=== PATIENT | female | born 1980 | race Caucasian/White ===

== ENCOUNTER 2020-10-28 13:34 | Outpatient (REF) | payer OTHER, SELFPAY | END 2020-10-28 13:35 | disposition home or self-care (01) | LOC: HO.LAB 13:34 | PROVIDERS: Visit Provider Nurse Practitioner Family | DX: R10.9 Unspecified abdominal pain (principal); R82.90 Unspecified abnormal findings in urine | CPT/HCPCS: 87086 ==

== ENCOUNTER 2021-04-22 09:58 | Outpatient (REF) | payer OTHER, SELFPAY ==
--- NOTE | ~2021-04-22 | XR_ITS ---
EXAMINATION: RIGHT HAND X-RAY CLINICAL INFORMATION: Pain COMPARISON: None TECHNIQUE: 3 views right hand FINDINGS: Bone alignment is normal. No fracture or dislocation is seen. Joint spaces and soft tissues are normal. XR/XR hand wrist RT IMPRESSION: Normal exam.
== END 2021-04-22 09:59 | disposition home or self-care (01) ==
LOC: HO.HMGCX 09:58
PROVIDERS: PCP Nurse Practitioner Family; Visit Provider Nurse Practitioner Family
DX: M79.641 Pain in right hand (principal)
CPT/HCPCS: 73110; 73130

== ENCOUNTER 2021-08-09 08:50 | Outpatient (REF) | payer OTHER, SELFPAY ==
[2021-08-09 11:28] LABS: MANUAL DIFF FLAG NO
[2021-08-09 11:34] LABS: Appearance Urine CLEAR; Color Urine YELLOW; Glucose Urine UA NEG (NEG); Leukocyte Esterase Urine NEG (NEG); Nitrite Urine NEG (NEG); Specific Gravity - Urine <= 1.005 (1.005-1.025); Urine Blood NEG (NEG); Urine Ketones NEG (NEG); Urine Protein NEG (NEG-TRACE)
[2021-08-09 11:36] LABS: Basophils Percent Auto 0.3 % (0-2); Eosinophils Absolute Auto 0.2 X10*3/uL (0.0-0.4); Eosinophils Percent Auto 3.8 % (0-4); Hemoglobin 13.1 g/dl (12.0-16.0); Imm Gran Abs Auto 0.01 X10*3/uL (0.00-0.03); Imm Gran Pct Auto 0.2 % (0.0-0.4); Lymphocytes Absolute Auto 1.8 X10*3/uL (1.2-4.9); Lymphocytes Percent Auto 30.1 % (20-40); Mean Corpuscular Volume 90.9 fL (80.0-98.0); Mean Platelet Volume 10.9 fL (9.4-12.3); Monocytes Absolute Auto 0.4 X10*3/uL (0.1-1.2); Neutrophils Absolute Auto 3.6 x10*3/uL (2.0-8.3); Neutrophils Percent Auto 58.6 % (45-73); Platelet Count 376 X10*3/uL (160-400); Red Blood Count 4.51 X10*6/uL (4.20-5.50); Red Cell Distribution Width 13.8 % (11.0-16.0); White Blood Count 6.1 X10*3/uL (4.8-10.8)
[2021-08-09 12:06] LABS: Alanine Aminotransferase 15 U/L (0-31); Albumin Level 4.3 g/dL (3.5-5.0); Alkaline Phosphatase 89 U/L (39-117); Anion Gap 12 (12-20); Aspartate Amino Transferase 16 U/L (5-31); Bilirubin Total 0.2 mg/dL (0.0-1.0); Blood Urea Nitrogen 13 mg/dL (9-16); Calcium 9.7 mg/dL (8.4-10.2); Carbon Dioxide 26 mmol/L (22-29); Chloride 105 mmol/L (96-108); Estimated Glomerular Filt Rate > 60; Glucose Fasting 91 mg/dL (60-99); Potassium 4.2 mmol/L (3.3-5.1); Sodium 139 mmol/L (135-145); Total Protein 7.3 g/dL (6.5-8.0)
[2021-08-09 12:11] LABS: TSH reflex Free T4 1.41 uIU/mL (0.32-4.0)
[2021-08-10 13:11] LABS: Anti Nuclear Antibody Screen NEGATIVE (NEGATIVE)
== END 2021-08-09 08:51 | disposition home or self-care (01) ==
LOC: HO.HMGCLDS 08:50
PROVIDERS: PCP Nurse Practitioner Family; Visit Provider Nurse Practitioner Family
DX: R20.9 Unspecified disturbances of skin sensation (principal)
CPT/HCPCS: 36415; 80053; 81003; 84443; 85025; 86038; 86039

== ENCOUNTER 2021-08-16 10:05 | Outpatient (REF) | payer OTHER, SELFPAY ==
[2021-08-16 11:30] LABS: MANUAL DIFF FLAG NO
[2021-08-16 11:39] LABS: Basophils Percent Auto 0.5 % (0-2); Eosinophils Absolute Auto 0.2 X10*3/uL (0.0-0.4); Eosinophils Percent Auto 3.2 % (0-4); Hematocrit 40.8 % (37.0-47.0); Hemoglobin 13.2 g/dl (12.0-16.0); Imm Gran Abs Auto 0.02 X10*3/uL (0.00-0.03); Imm Gran Pct Auto 0.3 % (0.0-0.4); Lymphocytes Absolute Auto 1.9 X10*3/uL (1.2-4.9); Lymphocytes Percent Auto 31.2 % (20-40); Mean Corpuscular HGB Conc 32.4 g/dl (31.0-35.0); Mean Corpuscular Hemoglobin 29.1 pg (27.0-33.0); Mean Corpuscular Volume 90.1 fL (80.0-98.0); Mean Platelet Volume 10.7 fL (9.4-12.3); Monocytes Absolute Auto 0.5 X10*3/uL (0.1-1.2); Monocytes Percent Auto 8.7 % (2-11); Neutrophils Absolute Auto 3.5 x10*3/uL (2.0-8.3); Neutrophils Percent Auto 56.1 % (45-73); Platelet Count 367 X10*3/uL (160-400); Red Blood Count 4.53 X10*6/uL (4.20-5.50); Red Cell Distribution Width 13.6 % (11.0-16.0); White Blood Count 6.2 X10*3/uL (4.8-10.8)
[2021-08-16 12:03] LABS: C Reactive Protein 0.33 mg/dL (< or = 0.50); Iron 119 mcg/dL (30-160); Percent Iron Saturation 32 % (15-50); Total Iron Binding Capacity 371 mcg/dL (228-428); Unsaturated Iron Binding 252 ug/dL
[2021-08-16 12:17] LABS: Erythrocyte Sedimentation Rate 10 MM/HR (0-20)
[2021-08-16 12:23] LABS: Vitamin D 25-OH Total 40.8 ng/mL (>30)
[2021-08-16 12:32] LABS: Folate 14.2 ng/mL (> or = 4.0); Vitamin B12 684 pg/mL (200-900)
[2021-08-16 12:51] LABS: Ferritin 16 ng/mL (10-250)
[2021-08-18 07:27] LABS: Lyme Abs Screen <0.90 index
== END 2021-08-16 10:06 | disposition home or self-care (01) ==
LOC: HO.HMGCLDS 10:05
PROVIDERS: Visit Provider Nurse Practitioner Family
DX: R53.83 Other fatigue (principal)
CPT/HCPCS: 36415; 82306; 82607; 82728; 82746; 83540; 85025; 85652; 86140; 86617; 86618

== ENCOUNTER 2022-03-02 12:17 | Outpatient (REF) | payer OTHER, SELFPAY ==
[2022-03-02 13:54] LABS: MANUAL DIFF FLAG NO
[2022-03-02 14:00] LABS: Basophils Percent Auto 0.4 % (0-2); Eosinophils Absolute Auto 0.3 X10*3/uL (0.0-0.4); Eosinophils Percent Auto 3.6 % (0-4); Hematocrit 39.9 % (37.0-47.0); Hemoglobin 12.9 g/dl (12.0-16.0); Imm Gran Abs Auto 0.02 X10*3/uL (0.00-0.03); Imm Gran Pct Auto 0.2 % (0.0-0.4); Lymphocytes Absolute Auto 2.2 X10*3/uL (1.2-4.9); Lymphocytes Percent Auto 26.5 % (20-40); Mean Corpuscular HGB Conc 32.3 g/dl (31.0-35.0); Mean Corpuscular Hemoglobin 29.2 pg (27.0-33.0); Mean Corpuscular Volume 90.3 fL (80.0-98.0); Mean Platelet Volume 11.1 fL (9.4-12.3); Monocytes Absolute Auto 0.7 X10*3/uL (0.1-1.2); Monocytes Percent Auto 7.7 % (2-11); Neutrophils Absolute Auto 5.2 x10*3/uL (2.0-8.3); Neutrophils Percent Auto 61.6 % (45-73); Platelet Count 363 X10*3/uL (160-400); Red Blood Count 4.42 X10*6/uL (4.20-5.50); Red Cell Distribution Width 13.1 % (11.0-16.0); White Blood Count 8.4 X10*3/uL (4.8-10.8)
[2022-03-02 14:17] LABS: Alanine Aminotransferase 12 U/L (0-31); Albumin Level 4.3 g/dL (3.5-5.0); Alkaline Phosphatase 89 U/L (39-117); Anion Gap 13 (12-20); Aspartate Amino Transferase 13 U/L (5-31); Bilirubin Total 0.2 mg/dL (0.0-1.0); Blood Urea Nitrogen 14 mg/dL (9-16); Calcium 9.6 mg/dL (8.4-10.2); Carbon Dioxide 25 mmol/L (22-29); Chloride 105 mmol/L (96-108); Estimated Glomerular Filt Rate > 60; Glucose Random 88 mg/dL (60-115); Potassium 4.4 mmol/L (3.3-5.1); Sodium 139 mmol/L (135-145)
[2022-03-02 15:06] LABS: Folate > 20.0 ng/mL (> or = 4.0); Vitamin B12 599 pg/mL (200-900)
== END 2022-03-02 12:18 | disposition home or self-care (01) ==
LOC: HO.HMGCLDS 12:17
PROVIDERS: PCP Nurse Practitioner Family; Visit Provider Nurse Practitioner Family
DX: E53.8 Deficiency of other specified B group vitamins (principal)
CPT/HCPCS: 36415; 80053; 82607; 82746; 85025

== ENCOUNTER → 2022-03-05 13:19 | Outpatient (BNVA) | payer OTHER, SELFPAY | PROVIDERS: PCP Nurse Practitioner Family; Referring Provider Nurse Practitioner Family; Visit Provider Internal Medicine | DX: I45.10 Unspecified right bundle-branch block (principal) | CPT/HCPCS: 93005; 99212 ==

== ENCOUNTER → 2022-03-27 07:27 | Outpatient (REF) | payer OTHER, SELFPAY ==
--- NOTE | 2022-03-27 07:30 | CA_ITS ---
Transthoracic Echocardiogram Patient (Last, First, Middle): Inge Trammell M Gender: Female Date of : 1980 Age: 41 Procedure Date: 03/27/2022 Procedure Type: Transthoracic Echocardiogram Location: OP Height: 170.18 cm Weight: 72.58 kg BSA: 1.84 m2 Heart Rate: 74 bpm BP: 120 / 80 mmHg Data Entry Analyst: LEONIDES Munguia MD: Ky Ramirez MD Poultry Husbandman: Anthony Gibbs MD Symptoms: I45.10 - Unspecified right bundle-branch block Study Quality: Adequate ECG Rhythm: Sinus Conclusions: - Essentially normal study Findings Left Ventricle Normal left ventricular size, thickness, and systolic function. The visually estimated ejection fraction is between 55-60%. Spectral Doppler is indicative of a normal filling pattern. Right Ventricle Normal right ventricular cavity size and systolic function. Atria Both atria are normal in size. There is lipomatous hypertrophy of the interatrial septum. There is no evidence of interatrial shunt. Aortic Valve Normal aortic valve structure and function. There is no aortic valve stenosis. There is no aortic valve regurgitation. Mitral Valve Normal mitral valve structure and function. There is trace mitral valve regurgitation. There is no mitral valve stenosis. Pulmonic Valve The pulmonic valve is likely normal. Tricuspid Valve Normal tricuspid valve structure. Tricuspid regurgitation envelope is inadequate for calculation of right ventricular systolic pressure. Normal right atrial pressure. Great Vessels All visible segments of the aorta are normal in size. The pulmonary artery was not well visualized. Venous The inferior vena cava is normal in size and collapses greater than 50% with inspiration. Pericardium/Pleural There is no evidence of pericardial effusion. Prior Study Comparison No prior study available for comparison. Measurements 2D Linear Measurements IVSd: 0.68 0.6-0.9/0.6-1.0 cm LVIDd: 4.30 3.9-5.3/4.2-5.9 cm LVIDd Index: 2.34 2.4-3.2/2.2-3.1 cm/m2 LVIDs: 2.67 2.0-3.6 cm LVPWd: 0.75 0.7-1.1 cm LA Diam: 2.70 2.7-3.8/3.0-4.0 cm LAIDs Index: 1.47 1.5-2.3 cm/m2 LV Mass: 112.66 67-162/88-224 g LV Mass Index: 61.23 43-95/49-115 g/m2 LVOT Diam: 1.80 3.0+(-)1.3 cm 2D Systolic Function EF 4C: 50.00 >55% EF 2C: 60.70 >55% EF BiP: 55.40 >55% Mitral Valve MV Pk E: 0.74 MV PK A: 0.59 MV Decel Time: 158.00 E/A: 1.30 E'Lateral: 12.90 E'Medial: 12.00 E/E' Med: 6.10 E/E' Lat: 5.70 PHT: 46.00 MVA PHT: 4.78 Decel Williamson: 4.68 Aortic Valve AoV Pk Leno: 1.30 AoV Mn Leno: 0.91 AoV VTI: 0.26 AoV Pk Grad: 7.00 Aov Mn Grad: 4.00 ROHIT Cont.VTI: 2.03 LVOT LVOT Pk Leno: 1.03 LVOT Mn Leno: 0.72 LVOT VTI: 0.21 LVOT Pk Grad: 4.00 LVOT Mn Grad: 2.00 LVOT Diam: 1.80 LVOT Area: 2.54 Diastolic Function MV Pk E: 0.74 MV Pk A: 0.59 E/A: 1.30 E'Medial: 12.00 E/E' Med: 6.10 E' Laterial: 12.90 E/E' Lat: 5.70 Right Ventricle TAPSE (mm): 25.20 TVS' Leno: 10.60 Tricuspid Valve RA Press: 3.00 Great Vessels Aorta Sinus of Valsalva: 3.10 2.0-3.5 cm Ao Asc: 2.90 2.1-3.4 cm Pulmonary Valve PV Pk Leno: 0.68 Peak PV Grad: 2.00 Updated in Other Vendor System with Status of Final Anthony Gibbs MD electronically signed on 03/27/2022 11:39:56 AM with status of Final
== END ==
LOC: HO.CARD 07:27
PROVIDERS: Visit Provider Internal Medicine
DX: I45.10 Unspecified right bundle-branch block (principal)
CPT/HCPCS: 93306

== ENCOUNTER → 2022-04-12 09:16 | Outpatient (BNVA) | payer OTHER, SELFPAY | PROVIDERS: PCP Nurse Practitioner Family; Visit Provider Internal Medicine | DX: I45.10 Unspecified right bundle-branch block (principal) | CPT/HCPCS: 99212 ==

== ENCOUNTER 2023-07-06 10:58 | Outpatient (REF) | payer OTHER, SELFPAY ==
--- NOTE | ~2023-07-06 | MR_ITS ---
EXAMINATION: MR BRAIN WITHOUT CONTRAST CLINICAL INFORMATION: Stabbing headache. COMPARISON: Brain MRI dated 02/21/2019. TECHNIQUE: Multiplanar, multisequence imaging of the brain was performed without contrast. FINDINGS: No diffusion abnormalities are identified to suggest an acute or subacute infarct. The ventricles are normal in size. No mass effect or midline shift is seen. No brain parenchymal signal abnormality is noted. No extra-axial fluid collections are seen. The brainstem and cerebellum are normal. The gradient refocused acquisition is normal. The craniovertebral junction, marrow signal, and midline structures are normal. The major intracranial flow voids at the level of the grand traverse of Zambrano are preserved. The dural venous sinus flow voids are maintained. The mastoid air cells are well aerated. There is moderate to severe ethmoid sinus mucosal thickening bilaterally. Small fluid level visible in the right sphenoid sinus. A small proteinaceous retention cyst is visible along the medial wall the right maxillary antrum with mild mucosal thickening in the sinus cavity. MR/MR head/brain wo con IMPRESSION: Normal MRI of the brain. No acute process. Significant ethmoid sinus mucosal thickening and milder mucosal thickening elsewhere in the paranasal sinuses.
== END 2023-07-06 10:59 | disposition home or self-care (01) ==
LOC: HO.MRI 10:58
PROVIDERS: PCP Nurse Practitioner Family; Visit Provider Psychiatry & Neurology Neurology
DX: G44.85 Primary stabbing headache (principal)
CPT/HCPCS: 70551

== ENCOUNTER 2023-07-09 12:50 | Outpatient (REF) | payer OTHER, SELFPAY ==
--- NOTE | ~2023-07-09 | US_ITS ---
EXAMINATION: US DIAGNOSTIC ULTRASOUND BREAST, BILATERAL CLINICAL INFORMATION: Mild dimpling left breast 9:00 axis times approximately 2 years. Pain 2-3 months essentially involving the entire right breast and the majority of the left breast. COMPARISON: No prior ultrasound. Mammography 06/04/2023. TECHNIQUE: Ultrasound of both breasts was performed with real-time corrigan scale imaging and color Doppler. Attention was given to the area of pain in the RIGHT breast involving the upper outer quadrant, upper inner quadrant, lower outer quadrant, and lower inner quadrant. Attention to the LEFT breast was given to the 12 - 6 o'clock axis, and 7 - 11:00 axis in the regions of pain.. FINDINGS: There is bilateral retroareolar duct ectasia without filling defects. There are no masses, cystic abnormalities, abnormal regions of shadowing, or edema within the soft tissue planes in either breast. The dimpling at 9:00 left breast shows no underlying abnormality. A few parenchymal calcifications are seen in the left breast without associated mass or other abnormality. US/US breast BI limited mamm only IMPRESSION: No findings suspicious for malignancy in either breast. Mild duct ectasia bilateral retroareolar regions without filling defect. Area of skin dimpling 9:00 left breast shows no underlying abnormality. Recommend the patient return to routine annual screening. ASSESSMENT: BI-RADS 2: Benign RECOMMENDATION: Routine annual mammography screening. This patient's information was entered into a reminder system with a target due date for their next mammogram.
== END 2023-07-09 12:51 | disposition home or self-care (01) ==
LOC: HO.MAMMO 12:50
PROVIDERS: PCP Nurse Practitioner Family; Visit Provider Nurse Practitioner Family
DX: N64.4 Mastodynia (principal); Z87.2 Personal history of diseases of the skin and subcutaneous tissue
CPT/HCPCS: 76642

== ENCOUNTER → 2023-07-09 13:00 | Outpatient (BNV) | payer OTHER, SELFPAY | PROVIDERS: PCP Nurse Practitioner Family; Visit Provider Radiology Diagnostic Radiology | DX: R92.8 Other abnormal and inconclusive findings on diagnostic imaging of breast (principal) | CPT/HCPCS: 76642 ==

== ENCOUNTER 2023-09-11 11:24 | Outpatient (AMB) | payer OTHER, SELFPAY ==
[2023-09-11 11:29] VITALS: BP 130/78; PULSE 93; O2SAT 100; BMI 28.5
--- NOTE | 2023-09-11 11:29 | MHC.PC.OV ---
Vital Signs 09/11/23 11:29 Height 5 ft 7 in Weight 182 lb BMI 28.5 BP 130/78 Blood Pressure Location Lt brachial Position Sitting Pulse 93 Pulse Source Pulse Oximeter Pulse Oximetry (%) 100 Oxygen Delivery Method Room Air Intake Visit Reasons: Adult CPE Female 18-49 Intake Note: Pt is here for her Annual PE Pt started with a sore throat yesterday pt's last Pap was 6 months ago pt had her mammo in the fall Is last menstrual period known: Yes (2 years ago ) Allergies gentamicin Allergy (Unknown, Verified 09/11/23 11:58) Unknown Medication List - Last Reconciled 09/11/23 by DANIELLA Rowe-CHERELLE cholecalciferol (vitamin D3) 50 mcg PO DAILY 90 days fluticasone propionate 50 mcg/actuation (Allergy Relief (fluticasone)) 2 sprays intranasal DAILY 30 days Wellbutrin XL (bupropion HCl) 150 mg PO QAM 90 days NS Tobacco use date assessed: 09/11/23 Dental Screening Dental Screen Date: 09/11/23 Did you have a dental visit in the last 12 months?: Yes Did you have a dental problem in the last 6 months where you did not have access to dental care?: No Was dental information given to patient?: Patient has dentist HPI Encounter for routine adult health examination HPI Details Pt is here for a PE. Will order labs. 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 Mammo is up to date. Pt reports developing a sore throat, congestion, and a cough since arriving from [place] ([facility] ([place] Denies any fevers, chills, N/V. Will order a respiratory swab and strep test. Hx of b12 def, will check levels PFSH Medical History Depression Surgical History History of knee surgery History of tubal ligation History of section Family History Father Unknown family medical history Mother No problems noted. Maternal Grandmother HTN (hypertension) Diabetes mellitus Son No problems noted. Daughter No problems noted. Maternal Aunt Substance use disorder Mental health disorder Unknown Mental health disorder Social History Housing: House Patient Tobacco Use Status: Never used Tobacco e-Cigarette/Vaping Use: Never Used Second Hand Smoke Exposure: No service: No Current occupational status: employed and unemployed Cognitive needs: No Hearing needs: No Vision needs: No Questionnaire PHQ-9 Over the last 2 weeks, how often have you been bothered by any of the following problems? 1. Little interest or pleasure in doing things: several days 2. Feeling down, depressed, or hopeless: more than half the days 3. Trouble falling or staying asleep, or sleeping too much: several days 4. Feeling tired or having little energy: nearly every day 5. Poor appetite or overeating: not at all 6. Feeling bad about yourself - or that you are a failure or have let yourself or your family down: several days 7. Trouble concentrating on things, such as reading the newspaper or watching television: several days 8. Moving or speaking so slowly that other people could have noticed. Or the opposite - being so fidgety or restless that you have been moving around a lot more than usual: not at all 9. Thoughts that you would be better off or of hurting yourself in some way: not at all Total score: 9 Depression Screening Interpretation: Positive (has a therapist, denies any si or hi) Depression Screening Follow-up: Existing condition and In treatment Depression Screening Done: Yes Source: Developed by Drs. Stef Cadena, Aaliyah Poe, Scott Santoyo and colleagues, with an educational hermes from [employer]. Thrive Questionnaire Date Thrive assessed: 01/02/22 I am a: Patient What is your living situation today?: I have a steady place to live Within the past 12 months, did the food you bought not last and you didn't have the money to get more?: Never true Within the past 12 months, did you worry whether your food would run out before you got money to buy more?: Never true Do you have trouble paying for medicines?: No Do you have trouble getting transportation to medical appointments?: No Do you have trouble paying your heating and electricity bill?: No Do you have trouble taking care of your child, family member or friend?: No Do you have trouble with day-to-day activities such as bathing, preparing meals, shopping, managing finances, etc.?: No Are you currently unemployed and looking for a job?: No Are you interested in more education?: Yes Please select the resources that you would like help with: None Currently or been in a relationship where the following occur: no concerns reported THRIVE Score: 0 AUDIT C Alcohol Use Questionnaire (AUDIT-C) 1. How often do you have a drink containing alcohol?: Never Total Score: 0 MAYDA-7 AMB Questionnaire MAYDA-7 Date MAYDA - 7 assessed: 09/11/23 Feeling nervous, anxious, or on edge: 2 = More than half the days Not being able to stop or control worryin = Several days Worrying too much about different things: 1 = Several days Trouble relaxin = More than half the days Being so restless that it is hard to sit still: 1 = Several days Becoming easily annoyed or irritable: 1 = Several days Feeling afraid as if something awful might happen: 1 = Several days Total MAYDA-7 score (0-4 normal; 5-9 mild; 10-14 moderate; 15-21 severe): 9 Source: Developed by Drs. Stef Cadena, Aaliyah Poe, Scott Santoyo and colleagues, with an educational hermes from [employer]. Review of Systems Const Denies chills and Denies fever(s) Eyes Denies blurry vision ENT Denies vertigo, Denies dizziness and Denies sore throat Card Denies chest pain at rest, Denies chest pain with activity, Denies diaphoresis, Denies dyspnea and Denies dyspnea on exertion Resp Denies cough, Denies dyspnea, Denies dyspnea on exertion and Denies wheezing GI Denies abdominal pain, Denies melena, Denies hematochezia, Denies constipation, Denies diarrhea and Denies loose stools Denies hematuria Musc Denies numbness and Denies tingling Skin/Breast Denies lesions Neuro Denies vertigo, Denies dizziness, Denies numbness and Denies tingling Psych Denies anxiety, Denies depression, Denies homicidal ideation, Denies suicidal ideation and Denies other (substance abuse) Aller/Immun Denies wheezing Physical exam (Primary Care) Vital Signs: Last Vital Signs Pulse 93 09/11/23 11:29 BP 130/78 09/11/23 11:29 Pulse Ox 100 09/11/23 11:29 Oxygen Delivery Method Room Air 09/11/23 11:29 BMI result Body Mass Index 28.5 Tobacco/Smoking Status: Tobacco use Status Tobacco use date assessed 09/11/23 09/11/23 11:35 Patient Tobacco Use Status Never used Tobacco 09/11/23 11:35 e-Cigarette/Vaping Use Never Used 09/11/23 11:35 PHQ-9: PHQ-9 Score PHQ-9: Total score 9 09/11/23 11:52 Depression Screening Interpretation: Positive (has a therapist, denies any si or hi) Depression Screening Follow-up: Existing condition and In treatment Thrive Assessment: Date of Thrive Assessment Date Thrive assessed 01/02/22 09/11/23 11:35 Currently or been in a relationship where the following occur: no concerns reported Const General: cooperative Nutritional Appearance: well nourished Orientation/consciousness: patient oriented x3 HENMT Head: Yes normal to inspection, Yes normocephalic and Yes atraumatic Ears: TM's normal bilaterally Throat: Yes posterior oropharynx normal Eyes General: appearance normal, both eyes and all related structures Alignment and Position: alignment normal and position normal Neck Neck: Yes normal visual inspection and Yes no lymphadenopathy Thyroid: Thyroid normal Resp Effort & Inspection: normal respiratory effort Auscultation: clear to auscultation bilaterally Cardio Rate: regular rate Rhythm: regular rhythm Heart sounds: S1 normal heart sound present, S2 normal heart sound present and no murmurs GI Palpation (GI): Soft to palpation and nontender Auscultation: normal bowel sounds Skin Rashes: no rashes Neuro General: patient oriented x3, moves all extremities, no focal motor deficits and deep tendon reflexes 2+ bilaterally Romberg Test: Negative Psych Appearance: grossly normal Mental Status: mental status grossly normal Speech and movement: Normal speech and movement present Affect: normal affect Attitude: cooperative Thought process: Normal thought process present Thought content: Normal thought content present Insight: Good insight present (Psych) Judgement: Good judgement present (Psych) Results AMB Rapid Strep AMB Rapid Strep Negative Last Edit by Valeria Noonan CMA on 09/11/23 12:03 Assessment and Plan Assessment & Plan (1) Encounter for routine adult health examination: Code(s): Z00.00 - Encounter for general adult medical examination without abnormal findings (2) Physical exam: Code(s): Z00.00 - Encounter for general adult medical examination without abnormal findings Plan: labs ordered (3) B12 deficiency: Code(s): E53.8 - Deficiency of other specified B group vitamins Plan: will recheck levels (4) Viral illness: Code(s): B34.9 - Viral infection, unspecified Plan: resp swab performed (5) Pharyngitis: Code(s): J02.9 - Acute pharyngitis, unspecified Plan: strep swab was neg Orders: Orders Comprehensive [place]. Panel Fast Today Z00.00 - Encounter for general adult medical examination without abnormal findings TSH reflex Free T4 Today Z00.00 - Encounter for general adult medical examination without abnormal findings UA CC w/rflx Micro + Cult Today Z00.00 - Encounter for general adult medical examination without abnormal findings Lipid Panel Today Z00.00 - Encounter for general adult medical examination without abnormal findings Vitamin B12 and Folate Today E53.8 - Deficiency of other specified B group vitamins Complete Blood Count Auto Diff Today Z00.00 - Encounter for general adult medical examination without abnormal findings SARS-CoV2/FLU/RSV Today B34.9 - Viral infection, unspecified AMB Rapid Strep Screen Today Z13.9 - Encounter for screening, unspecified Coding Level of Care Code Est Pt Prev Care 40-64y(64585) Diagnoses Encounter for routine adult health examination Z00.00 Physical exam Z00.00 B12 deficiency E53.8 Viral illness B34.9 Pharyngitis J02.9
== END 2023-09-11 12:09 | disposition home or self-care (01) ==
PROVIDERS: PCP Nurse Practitioner Family; Visit Provider Nurse Practitioner Family
DX: Z00.00 Encounter for general adult medical examination without abnormal findings (principal); E53.8 Deficiency of other specified B group vitamins; B34.9 Viral infection, unspecified; J02.9 Acute pharyngitis, unspecified
CPT/HCPCS: 87880; 99396

== ENCOUNTER 2023-09-11 13:49 | Outpatient (REF) | payer OTHER, SELFPAY ==
[2023-09-11 15:53] LABS: Influenza A PCR POSITIVE (Negative); Influenza B PCR NEGATIVE (Negative); Resp Syncy Virus RNA Qual PCR NEGATIVE (Negative); SARS COV2 PCR INHOUSE NEGATIVE (Negative)
== END 2023-09-11 13:50 | disposition home or self-care (01) ==
LOC: HO.HMGCLNP 13:49
PROVIDERS: Visit Provider Nurse Practitioner Family
DX: Z11.52 Encounter for screening for COVID-19 (principal); Z20.822 Contact with and (suspected) exposure to COVID-19; B34.9 Viral infection, unspecified
CPT/HCPCS: 0241U

== ENCOUNTER 2023-09-21 09:39 | Outpatient (REF) | payer OTHER, SELFPAY ==
[2023-09-21 11:08] LABS: Appearance Urine Cloudy; Color Urine Yellow; Glucose Urine UA Negative (Negative); Leukocyte Esterase Urine Negative (Negative); Nitrite Urine Negative (Negative); PH 8.5 (5.0-9.0); Urine Blood Negative (Negative); Urine Ketones Negative (Negative); Urine Protein Negative (Neg-Trace)
[2023-09-21 11:17] LABS: MANUAL DIFF FLAG NO
[2023-09-21 11:23] LABS: Basophils Percent Auto 0.3 % (0-2); Eosinophils Absolute Auto 0.1 X10*3/uL (0.0-0.4); Eosinophils Percent Auto 1.5 % (0-4); Hematocrit 39.3 % (37.0-47.0); Hemoglobin 12.8 g/dl (12.0-16.0); Imm Gran Abs Auto 0.03 X10*3/uL (0.00-0.03); Imm Gran Pct Auto 0.5 % (0.0-0.4); Lymphocytes Absolute Auto 1.9 X10*3/uL (1.2-4.9); Lymphocytes Percent Auto 29.4 % (20-40); Mean Corpuscular HGB Conc 32.6 g/dl (31.0-35.0); Mean Corpuscular Hemoglobin 28.8 pg (27.0-33.0); Mean Corpuscular Volume 88.5 fL (80.0-98.0); Mean Platelet Volume 11.2 fL (9.4-12.3); Monocytes Absolute Auto 0.5 X10*3/uL (0.1-1.2); Monocytes Percent Auto 7.1 % (2-11); Neutrophils Percent Auto 61.2 % (45-73); Platelet Count 358 X10*3/uL (160-400); Red Blood Count 4.44 X10*6/uL (4.20-5.50); White Blood Count 6.5 X10*3/uL (4.8-10.8)
[2023-09-21 12:30] LABS: TSH reflex Free T4 0.61 uIU/mL (0.32-4.0)
[2023-09-21 12:34] LABS: Alanine Aminotransferase 15 U/L (0-31); Alkaline Phosphatase 77 U/L (39-117); Anion Gap 11 (12-20); Aspartate Amino Transferase 16 U/L (5-31); Bilirubin Total 0.3 mg/dL (0.0-1.0); Blood Urea Nitrogen 12 mg/dL (9-16); Carbon Dioxide 25 mmol/L (22-29); Chloride 108 mmol/L (96-108); Cholesterol 158 mg/dL (<200); Estimated Glomerular Filt Rate > 60; Glucose Fasting 90 mg/dL (60-99); HDL Cholesterol 52 mg/dL (>40); LDL Cholesterol Calculated 91 mg/dL (<100); Potassium 4.5 mmol/L (3.3-5.1); Sodium 139 mmol/L (135-145); Total Protein 7.1 g/dL (6.5-8.0); Triglycerides 75 mg/dL (<150)
[2023-09-21 12:43] LABS: Folate 9.6 ng/mL (> or = 4.0); Vitamin B12 643 pg/mL (200-900)
== END 2023-09-21 09:40 | disposition home or self-care (01) ==
LOC: HO.HMGCLDS 09:39
PROVIDERS: PCP Nurse Practitioner Family; Visit Provider Nurse Practitioner Family
DX: Z00.00 Encounter for general adult medical examination without abnormal findings (principal); Z13.6 Encounter for screening for cardiovascular disorders; E53.8 Deficiency of other specified B group vitamins
CPT/HCPCS: 36415; 80053; 80061; 81003; 82607; 82746; 84443; 85025

== ENCOUNTER 2023-09-24 11:01 | Outpatient (REF) | payer OTHER, SELFPAY ==
[2023-09-24 13:19] LABS: Appearance Urine Clear; Color Urine Yellow; Glucose Urine UA Negative (Negative); Leukocyte Esterase Urine Negative (Negative); Nitrite Urine Negative (Negative); PH 7.5 (5.0-9.0); Specific Gravity - Urine <= 1.005 (1.005-1.025); Urine Blood Negative (Negative); Urine Ketones Negative (Negative); Urine Protein Negative (Neg-Trace)
== END 2023-09-24 11:02 | disposition home or self-care (01) ==
LOC: HO.HMGCLDS 11:01
PROVIDERS: PCP Nurse Practitioner Family; Visit Provider Nurse Practitioner Family
DX: R30.0 Dysuria (principal)
CPT/HCPCS: 81003; 87086

== ENCOUNTER 2023-10-02 14:42 | Outpatient (AMB) | payer OTHER, SELFPAY ==
[2023-10-02 15:00] VITALS: BP 122/80; PULSE 81; TEMP 36.4; O2SAT 93; BMI 28.8
--- NOTE | 2023-10-02 15:00 | A.OFFVIS_ITS ---
Intake Vital Signs 10/02/23 15:00 Height 5 ft 7 in Weight 183 lb 13.848 oz BMI 28.8 BP 122/80 Blood Pressure Location Lt brachial Position Sitting Pulse 81 Pulse Source Pulse Oximeter Temp 97.5 F Temp Source Skin Pulse Oximetry (%) 93 Oxygen Delivery Method Room Air Intake Visit Reasons: Unspecified disturbances of skin sensation Intake Note: New patient presents today for consult on unspecified disturbances of skin sensation. 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 Patient stated that she has had cold hands for as long as she remember. She has cold hands and feet, she states that her hands pains colored to pink but not to white or blue. She denied ever having any digital tip ulcers. She is unaware of any family history of an autoimmune rheumatic disease. She states that recently she has been having diffuse pain as well as tingling and numbness of her entire body especially her lower extremities. She does not wake up refreshed. Her neurologist is Dr. Shore who follows her for headaches. She states that she has a follow-up appointment in about a month. Denies any history of DVT/PE. Denies fevers. Denies any blood or froth in urine. She had 2 pregnancies and 2 children, no abortions or miscarriages [facility] Medical History Depression Surgical History History of knee surgery History of tubal ligation History of section Family History Father Unknown family medical history Mother No problems noted. Maternal Grandmother HTN (hypertension) Diabetes mellitus Son No problems noted. Daughter No problems noted. 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 Cognitive needs: No Hearing needs: No Vision needs: No Female Reproductive History Menstrual Total pregnancies: 2 Number of Living Children: 2 Ab induced: 0 Ab spontaneous: 0 Review of Systems Const Reports fatigue, Reports headache(s) and Reports weight gain ENT Reports dizziness and Reports headache(s) Denies hematuria Musc Reports arthralgias, Reports joint swelling, Reports numbness and Reports tingling Neuro Reports dizziness, Reports headache(s), Reports numbness, Reports tingling and Reports paresthesias Psych Reports anxiety and Reports depression Endo Reports fatigue Physical Exam Vital Signs: Last Vital Signs Temp 97.5 F 10/02/23 15:00 Pulse 81 10/02/23 15:00 BP 122/80 10/02/23 15:00 Pulse Ox 93 10/02/23 15:00 Oxygen Delivery Method Room Air 10/02/23 15:00 BMI result Body Mass Index 28.8 Const General: cooperative, healthy appearing and comfortable Nutritional Appearance: overweight Orientation/consciousness: patient oriented x3 Limitations: no limitations HEENT Head: Yes normocephalic and Yes atraumatic Mouth: moist mucous membranes Resp Effort & Inspection: normal respiratory effort and able to speak in complete sentences Auscultation: clear to auscultation bilaterally Cardio Rate: regular rate Rhythm: regular rhythm GI Inspection: No distended Palpation (GI): Soft to palpation and nontender Skin General skin exam: no rashes or lesions noted Neuro Other: Normal superficial sensation both lower extremities No footdrop bilaterally Intact toe position sense General: patient oriented x3 Extrem Other: No active synovitis Bilateral cool and pink hands. Consistent with Raynaud's Normal nailfold capillaroscopy is except for right ring finger with 1 dilated loop Assessment & Plan Assessment & Plan (1) Fibromyalgia, primary: Code(s): M79.7 - Fibromyalgia Plan: This is a 43-year-old female who was referred for evaluation of cold hands and diffuse pain and tingling. I do not see any signs suggestive of an autoimmune rheumatic disease. Patient had a negative LITO with normal ESR, no cytopenias. She has Raynaud's phenomenon, this is likely primary Raynaud's, which is a benign form of Raynaud's. We discussed the difference between primary and secondary Raynaud's phenomenon. Discussed management strategies. Such as keeping core and extremity temperature warm, wearing gloves, glove warmers. Advised patient to return to clinic if she has worsening Raynaud's Clinical picture consistent with fibromyalgia Discussed management of fibromyalgia with patient. Is a noninflammatory, non- autoimmune central afferent processing disorder leading to a diffuse pain syndrome. I suggested that patient try to address her underlying psychiatric issues, anxiety/depression. I suggested evaluation by a therapist and/or a psychiatrist. Try to follow sleep hygiene practices. Consider a referral for a sleep study by her PCP. Patient would benefit from increased physical activity, either through formal physical therapy or by joining a gym. Advised patient that she should start activity slowly and increase as tolerated. Consider low-impact exercises such as walking, swimming, aqua therapy stretching, yoga. Follow-up with PCP (2) Paresthesia of bilateral legs: Code(s): R20.2 - Paresthesia of skin Plan: Patient has a follow-up appointment with Dr. Shore within 1 month. Advised patient to discuss it with him (3) Raynauds phenomenon: Code(s): I73.00 - Raynaud's syndrome without gangrene Qualifiers: Raynaud?s-associated gangrene presence: without gangrene Qualified Code(s): I73.00 - Raynaud's syndrome without gangrene Plan I spent 45 minutes reviewing patient's chart, evaluating patient, counseling patient and documenting in the chart Coding Level of Care Code New Pt Level 4 (82161) Diagnoses Fibromyalgia, primary M79.7 Paresthesia of bilateral legs R20.2 Raynaud's phenomenon without gangrene I73.00 Raynaud?s-associated gangrene presence: without gangrene
== END 2023-10-02 15:50 | disposition home or self-care (01) ==
PROVIDERS: PCP Nurse Practitioner Family; Visit Provider Student in an Organized Health Care Education/Training Program
DX: M79.7 Fibromyalgia (principal); R20.2 Paresthesia of skin; I73.00 Raynaud's syndrome without gangrene
CPT/HCPCS: 99204

== ENCOUNTER → 2023-10-02 14:42 | Outpatient (BNVA) | payer OTHER, SELFPAY | PROVIDERS: PCP Nurse Practitioner Family; Visit Provider Student in an Organized Health Care Education/Training Program | DX: M79.7 Fibromyalgia (principal); R20.2 Paresthesia of skin; I73.00 Raynaud's syndrome without gangrene | CPT/HCPCS: 99202 ==

== ENCOUNTER 2023-10-04 08:15 | Outpatient (REF) | payer OTHER, SELFPAY ==
--- NOTE | ~2023-10-04 | US_ITS ---
EXAMINATION: US ABDOMEN COMPLETE CLINICAL INFORMATION: Unspecified abdominal pain. COMPARISON: Ultrasound abdomen 12/27/2016. TECHNIQUE: Real-time imaging of the abdominal viscera. FINDINGS: PANCREAS: Normal. ABDOMINAL AORTA: The proximal, mid, and distal segments are normal in caliber. INFERIOR VENA CAVA: Visualized portions are normal. LIVER: Normal size, contour and parenchymal echotexture. No focal evidence of focal lesion or intrahepatic ductal dilatation. GALLBLADDER: Normal. The gallbladder is physiologically distended without evidence of stones, sludge, polyps, wall thickening or pericholecystic fluid. COMMON BILE DUCT: Normal in caliber measuring 0.3 cm in diameter. RIGHT KIDNEY: Normal. No hydronephrosis. No renal calculi or focal parenchymal lesions. The kidney measures 10.0 cm in maximum dimension. LEFT KIDNEY: Normal. No hydronephrosis. No renal calculi or focal parenchymal lesions. The kidney measures 9.0 cm in maximum dimension. SPLEEN: Normal. The spleen measures 9.8 cm in maximum dimension. FREE FLUID: None. US/US abdomen complete IMPRESSION: Normal sonographic examination of the abdomen.
== END 2023-10-04 08:16 | disposition home or self-care (01) ==
LOC: HO.HMGCX 08:15
PROVIDERS: PCP Nurse Practitioner Family; Visit Provider Nurse Practitioner Family
DX: R10.9 Unspecified abdominal pain (principal)
CPT/HCPCS: 76700

== ENCOUNTER 2023-11-18 09:30 | Outpatient (AMB) | payer OTHER, SELFPAY ==
[2023-11-18 10:25] VITALS: BP 122/76; PULSE 68; TEMP 36.6; O2SAT 98; BMI 28.7
--- NOTE | 2023-11-18 10:25 | AM.OFFWIN_ITS ---
Intake Vital Signs 11/18/23 10:25 Height 5 ft 7 in Weight 183 lb BMI 28.7 BP 122/76 Blood Pressure Location Rt brachial Position Sitting Pulse 68 Pulse Source Pulse Oximeter Temp 97.8 F Temp Source Oral Pulse Oximetry (%) 98 Oxygen Delivery Method Room Air Intake Visit Reasons: EP Pelvic pain Intake Note: pt is here today for pelvic pain started Patient Tobacco Use Status: Never used Tobacco Allergies gentamicin Allergy (Unknown, Verified 11/18/23 11:16) Unknown Do you need a note to return to daycare/school/sports/work: Yes HPI EP Pelvic pain HPI Details 43 yr old female presents to the office for a sick visit. Patient reports that she is having intermittent pain in the left lower quadrant of the abdomen. She has had it in the past few months at least 2-3 times last episode was a few days ago. Episode lasts for a few hours and then subsides. No symptoms of increased frequency, hesitancy or urgency. [facility] Medical History Depression Surgical History History of knee surgery History of tubal ligation History of section Family History Father Unknown family medical history Mother No problems noted. Maternal Grandmother HTN (hypertension) Diabetes mellitus Son No problems noted. Daughter No problems noted. 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 Cognitive needs: No Hearing needs: No Vision needs: No Physical Exam Vital Signs: Last Vital Signs Temp 97.8 F 11/18/23 10:25 Pulse 68 11/18/23 10:25 BP 122/76 11/18/23 10:25 Pulse Ox 98 11/18/23 10:25 Oxygen Delivery Method Room Air 11/18/23 10:25 BMI result Body Mass Index 28.7 Const General: cooperative and healthy appearing Nutritional Appearance: well nourished Orientation/consciousness: patient oriented x3 Limitations: no limitations HEENT Head: Yes normal to inspection Eyes General: appearance normal, both eyes and all related structures Neck Neck: Yes normal visual inspection Chest Chest palpation & inspection: normal palpation of entire chest wall Resp Effort & Inspection: normal respiratory effort Neuro General: patient oriented x3 Results AMB Urinalysis, Automated UA Leukoctes 0 Warren/uL Last Edit by Hussein Spence CMA on 11/18/23 11:42 UA Nitrite Negative Last Edit by Hussein Spence CMA on 11/18/23 11:42 UA Urobilinogen 0.2 mg/dL Last Edit by Hussein Spence CMA on 11/18/23 11 :42 UA Protein 0 mg/dL Last Edit by Hussein Spence CMA on 11/18/23 11:42 UA pH 7.0 Last Edit by Hussein Spence CMA on 11/18/23 11:42 UA Blood 0 Drake/uL Last Edit by Hussein Spence CMA on 11/18/23 11:42 UA Specific [place] 1.010 Last Edit by Hussein Spence CMA on 11/18/23 11:42 UA Ketone Negative Last Edit by Hussein Spence CMA on 11/18/23 11:42 UA Bilirubin 0 mg/dL Last Edit by Hussein Spence CMA on 11/18/23 11:42 UA Glucose 0 mg/dL Last Edit by Hussein Spence CMA on 11/18/23 11:42 Results Reviewed Results Reviewed: Laboratory Last Values Urine pH (Auto) 7.0 11/18/23 11:41 Specific [place] (Auto) 1.010 11/18/23 11:41 Urine Protein (Auto) 0 mg/dL 11/18/23 11:41 Glucose (UA)(Auto) 0 mg/dL 11/18/23 11:41 Urine Ketones (Auto) Negative 11/18/23 11:41 Urine Blood (Auto) 0 Drake/uL 11/18/23 11:41 Urine Nitrite (Auto) Negative 11/18/23 11:41 Urine Bilirubin (Auto) 0 mg/dL 11/18/23 11:41 Urine Urobilinogen (Auto) 0.2 mg/dL 11/18/23 11:41 Leukocyte Esterase (Auto) 0 Warren/uL 11/18/23 11:41 Assessment & Plan Assessment & Plan (1) Abdominal pain: Code(s): R10.9 - Unspecified abdominal pain Plan Urinalysis reviewed. No evidence of infection. 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 An ultrasound of the abdomen was done a month ago and it was reviewed. Orders: Orders AMB Urinalysis Automated Today Z13.9 - Encounter for screening, unspecified Coding Level of Care Code Est Pt Level 3 (95232) Diagnoses Abdominal pain R10.9
== END 2023-11-18 12:16 | disposition home or self-care (01) ==
PROVIDERS: PCP Nurse Practitioner Family; Visit Provider Internal Medicine
DX: R10.9 Unspecified abdominal pain (principal)
CPT/HCPCS: 81003; 99213

== ENCOUNTER 2024-03-11 10:04 | Outpatient (AMB) | payer OTHER, SELFPAY ==
[2024-03-11 10:06] VITALS: BP 112/78; PULSE 78; O2SAT 97; BMI 28.2
--- NOTE | 2024-03-11 10:07 | MHC.PC.OV ---
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 Recommended pt start a set sleep schedule. Will order labs. Denies fever, chills, and dizziness. Due for colon screen, will refer to GI. [facility] Medical History (Updated 03/11/24 @ 10:35 by Molina Live, [facility]) Depression Surgical History History of knee surgery History of tubal ligation History of section Family History Father Unknown family medical history Mother No problems noted. Maternal Grandmother HTN (hypertension) Diabetes mellitus Son No problems noted. Daughter No problems noted. 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 1. Little interest or pleasure in doing things: not at all 2. Feeling down, depressed, or hopeless: not at all 3. Trouble falling or staying asleep, or sleeping too much: several days 4. Feeling tired or having little energy: several days 5. Poor appetite or overeating: not at all 6. Feeling bad about yourself - or that you are a failure or have let yourself or your family down: not at all 7. Trouble concentrating on things, such as reading the newspaper or watching television: not at all 8. Moving or speaking so slowly that other people could have noticed. Or the opposite - being so fidgety or restless that you have been moving around a lot more than usual: not at all 9. Thoughts that you would be better off or of hurting yourself in some way: not at all Total score: 2 Depression Screening Interpretation: Negative Depression Screening Done: Yes 93400 - PHQ-9 Billing: Yes Source: Developed by Drs. Stef Cadena, Aaliyah Poe, Scott Santoyo and colleagues, with an educational hermes from [employer]. Thrive Questionnaire Date Thrive assessed: 03/11/24 I am a: Patient What is your living situation today?: I have a steady place to live Within the past 12 months, did the food you bought not last and you didn't have the money to get more?: Never true Within the past 12 months, did you worry whether your food would run out before you got money to buy more?: Never true Do you have trouble paying for medicines?: No Do you have trouble getting transportation to medical appointments?: No Do you have trouble paying your heating and electricity bill?: No Do you have trouble taking care of your child, family member or friend?: No Do you have trouble with day-to-day activities such as bathing, preparing meals, shopping, managing finances, etc.?: No Are you currently unemployed and looking for a job?: No Are you interested in more education?: No Please select the resources that you would like help with: None Currently or been in a relationship where the following occur: No concerns reported THRIVE Score: 0 AUDIT C Alcohol Use Questionnaire (AUDIT-C) 1. How often do you have a drink containing alcohol?: Never 3. How often do you have six or more drinks on one occasion?: Never Total Score: 0 Score Reviewed/Action Taken: Yes AMYDA-7 AMB Questionnaire MAYDA-7 Date MAYDA - 7 assessed: 03/11/24 Feeling nervous, anxious, or on edge: 0 = Not at all Not being able to stop or control worryin = Not at all Worrying too much about different things: 0 = Not at all Trouble relaxin = Not at all Being so restless that it is hard to sit still: 0 = Not at all Becoming easily annoyed or irritable: 0 = Not at all Feeling afraid as if something awful might happen: 0 = Not at all Total MAYDA-7 score (0-4 normal; 5-9 mild; 10-14 moderate; 15-21 severe): 0 Source: Developed by Drs. Stef Cadena, Aaliyah Poe, Scott Santoyo and colleagues, with an educational hermes from [employer]. MAYDA-7 Assessment Billing MAYDA-7 Assessment Tool: MAYDA-7 Assessment 02744 Review of Systems Const Reports as per HPI Physical exam (Primary Care) Vital Signs: Last Vital Signs Pulse 78 03/11/24 10:06 BP 112/78 03/11/24 10:06 Pulse Ox 97 03/11/24 10:06 Oxygen Delivery Method Room Air 03/11/24 10:06 BMI result Body Mass Index 28.2 Tobacco/Smoking Status: Tobacco use Status Tobacco use date assessed 09/11/23 03/11/24 10:09 Patient Tobacco Use Status Never used Tobacco 03/11/24 10:09 e-Cigarette/Vaping Use Never Used 03/11/24 10:09 PHQ-9: PHQ-9 Score PHQ-9: Total score 2 03/11/24 10:36 Depression Screening Interpretation: Negative Thrive Assessment: Date of Thrive Assessment Date Thrive assessed 03/11/24 03/11/24 10:09 Currently or been in a relationship where the following occur: No concerns reported Const General: cooperative Orientation/consciousness: patient oriented x3 Resp Effort & Inspection: normal respiratory effort Auscultation: clear to auscultation bilaterally Cardio Rate: regular rate Rhythm: regular rhythm Heart sounds: S1 normal heart sound present and S2 normal heart sound present Neuro General: patient oriented x3 Extrem Right lower extremity: no edema Left lower extremity: no edema Psych Appearance: grossly normal Mental Status: mental status grossly normal Speech and movement: Normal speech and movement present Affect: normal affect Attitude: cooperative Thought process: Normal thought process present Thought content: Normal thought content present Insight: Good insight present (Psych) Judgement: Good judgement present (Psych) Assessment and Plan Assessment & Plan (1) Fatigue: Code(s): R53.83 - Other fatigue Plan: Labs ordered (2) Screening for colon cancer: Code(s): Z12.11 - Encounter for screening for malignant neoplasm of colon Plan: Referred to GI Plan The patient agreed to the use of a medical intern for this encounter. Scribed for DANIELLA Back-BC by Chari Schwarz medical intern, on 03/11/2024 at 10:25 EST. Orders: Orders TSH reflex Free T4 Today R53.83 - Other fatigue UA CC w/rflx Micro + Cult Today R53.83 - Other fatigue IRON PROFILE Today R53.83 - Other fatigue Vitamin B12 and Folate Today R53.83 - Other fatigue Complete Blood Count Auto Diff Today R53.83 - Other fatigue Comprehensive Met. Panel Today R53.83 - Other fatigue Ferritin Today R53.83 - Other fatigue Hemoglobin Electrophoresis Today R53.83 - Other fatigue Referrals Gastroenterology Referral Z12.11 - Encounter for screening for malignant neoplasm of colon Coding Level of Care Code Est Pt Level 3 (45857) Diagnoses Fatigue R53.83 Screening for colon cancer Z12.11 Additional Codes MAYDA-7 Assessment Billing - MAYDA-7 Assessment Tool: MAYDA-7 Assessment 63827 ([id number])
== END 2024-03-11 11:28 | disposition home or self-care (01) ==
PROVIDERS: PCP Nurse Practitioner Family; Visit Provider Nurse Practitioner Family
DX: R53.83 Other fatigue (principal); Z12.11 Encounter for screening for malignant neoplasm of colon
CPT/HCPCS: 99213

== ENCOUNTER 2024-03-11 10:38 | Outpatient (REF) | payer OTHER, SELFPAY ==
[2024-03-11 13:20] LABS: MANUAL DIFF FLAG NO
[2024-03-11 13:26] LABS: Appearance Urine Clear; Color Urine Yellow; Glucose Urine UA Negative (Negative); Leukocyte Esterase Urine Negative (Negative); Nitrite Urine Negative (Negative); PH 7.5 (5.0-9.0); Urine Blood Negative (Negative); Urine Ketones Negative (Negative); Urine Protein Negative (Neg-Trace)
[2024-03-11 13:33] LABS: Basophils Percent Auto 0.6 % (0-2); Eosinophils Absolute Auto 0.2 X10*3/uL (0.0-0.4); Eosinophils Percent Auto 3.5 % (0-4); Hemoglobin 13.3 g/dl (12.0-16.0); Imm Gran Abs Auto 0.02 X10*3/uL (0.00-0.03); Imm Gran Pct Auto 0.3 % (0.0-0.4); Lymphocytes Percent Auto 28.4 % (20-40); Mean Corpuscular HGB Conc 33.3 g/dl (31.0-35.0); Mean Corpuscular Hemoglobin 29.6 pg (27.0-33.0); Mean Corpuscular Volume 89.1 fL (80.0-98.0); Mean Platelet Volume 10.6 fL (9.4-12.3); Monocytes Absolute Auto 0.5 X10*3/uL (0.1-1.2); Monocytes Percent Auto 7.4 % (2-11); Neutrophils Absolute Auto 4.1 x10*3/uL (2.0-8.3); Neutrophils Percent Auto 59.8 % (45-73); Platelet Count 368 X10*3/uL (160-400); Red Blood Count 4.49 X10*6/uL (4.20-5.50); Red Cell Distribution Width 13.4 % (11.0-16.0); White Blood Count 6.9 X10*3/uL (4.8-10.8)
[2024-03-11 13:54] LABS: Alanine Aminotransferase 14 U/L (0-31); Albumin Level 4.2 g/dL (3.5-5.0); Alkaline Phosphatase 93 U/L (39-117); Anion Gap 10 (12-20); Aspartate Amino Transferase 14 U/L (5-31); Bilirubin Total 0.2 mg/dL (0.0-1.0); Blood Urea Nitrogen 10 mg/dL (9-16); Calcium 9.8 mg/dL (8.4-10.2); Carbon Dioxide 28 mmol/L (22-29); Chloride 106 mmol/L (96-108); Estimated Glomerular Filt Rate > 60; Glucose Random 82 mg/dL (60-115); Iron 79 mcg/dL (30-160); Percent Iron Saturation 27 % (15-50); Sodium 140 mmol/L (135-145); Total Iron Binding Capacity 297 mcg/dL (228-428); Total Protein 7.4 g/dL (6.5-8.0); Unsaturated Iron Binding 218 ug/dL
[2024-03-11 14:16] LABS: Ferritin 12 ng/mL (10-250)
[2024-03-11 14:24] LABS: Folate 9.9 ng/mL (> or = 4.0); Vitamin B12 421 pg/mL (200-900)
[2024-03-13 12:34] LABS: Hematocrit 40.4 % (35.0-45.0); Hemoglobin 13.2 g/dL (11.7-15.5); MCH 29.3 pg (27.0-33.0); MCV 89.8 fL (80.0-100.0); RDW 13.2 % (11.0-15.0)
== END 2024-03-11 10:39 | disposition home or self-care (01) ==
LOC: HO.HMGCLDS 10:38
PROVIDERS: PCP Nurse Practitioner Family; Visit Provider Nurse Practitioner Family
DX: R53.83 Other fatigue (principal)
CPT/HCPCS: 36415; 80053; 81003; 82607; 82728; 82746; 83020; 83540; 84443; 85014; 85018; 85025; 85041

== ENCOUNTER 2024-04-23 12:34 | Outpatient (AMB) | payer OTHER, SELFPAY ==
--- NOTE | 2024-04-23 12:46 | MHC.OFFVIS ---
Vital Signs 04/23/24 12:51 Height 5 ft 7 in Weight 181 lb 3.52 oz BMI 28.4 BP 122/70 Blood Pressure Location Rt brachial Position Sitting Pulse 80 Pulse Source Pulse Oximeter Pulse Oximetry (%) 99 Oxygen Delivery Method Room Air Intake Visit Reasons: Fatigue Intake Note: Patient presents for fatigue. Feeling tingling and numbness both hands. Feeling fatigue and lots of brain fog. Allergies gentamicin Allergy (Unknown, Verified 04/23/24 12:50) Unknown Medication List - Last Reconciled 04/23/24 by Brittni Olmos MD acetaminophen (Tylenol Extra Strength) 1,000 mg (2 x 500 mg) PO Q8H PRN 30 days betamethasone valerate 0.1% 1 appl topical DAILY PRN cholecalciferol (vitamin D3) 50 mcg PO DAILY 90 days fluticasone propionate 50 mcg/actuation (Allergy Relief (fluticasone)) 2 sprays intranasal DAILY 30 days ibuprofen (IBU) 800 mg PO BID PRN 30 days Wellbutrin XL (bupropion HCl) 300 mg PO DAILY NS HPI Comments Details: Patient returns for follow-up. She continues to have the same symptoms. She has been having more tingling and numbness of her fingers recently. She has been walking more. Walking regularly every day. She has not had a sleep study. Initial history: This is a 43-year-old female who presents for evaluation of cold hands and diffuse pain as well as tingling and numbness. Patient stated that she has had cold hands for as long as she remember. She has cold hands and feet, she states that her hands pains colored to pink but not to white or blue. She denied ever having any digital tip ulcers. She is unaware of any family history of an autoimmune rheumatic disease. She states that recently she has been having diffuse pain as well as tingling and numbness of her entire body especially her lower extremities. She does not wake up refreshed. Her neurologist is Dr. Shore who follows her for headaches. She states that she has a follow-up appointment in about a month. Denies any history of DVT/PE. Denies fevers. Denies any blood or froth in urine. She had 2 pregnancies and 2 children, no abortions or miscarriages [facility] Medical History (Updated 03/11/24 @ 10:35 by Molina Live, [facility]) Depression Surgical History History of knee surgery History of tubal ligation History of section Family History Father Unknown family medical history Mother No problems noted. Maternal Grandmother HTN (hypertension) Diabetes mellitus Son No problems noted. Daughter No problems noted. 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 Cognitive needs: No Hearing needs: No Vision needs: No Female Reproductive History Menstrual Total pregnancies: 2 Number of Living Children: 2 Ab induced: 0 Ab spontaneous: 0 Review of Systems Const Reports fatigue and Reports headache(s) ENT Reports dizziness and Reports headache(s) Denies hematuria Musc Reports arthralgias, Reports numbness and Reports tingling Neuro Reports dizziness, Reports headache(s), Reports numbness, Reports tingling and Reports paresthesias Psych Reports anxiety and Reports depression Endo Reports fatigue Physical Exam Const General: cooperative, healthy appearing and comfortable Nutritional Appearance: overweight Orientation/consciousness: patient oriented x3 Limitations: no limitations HEENT Head: Yes normocephalic and Yes atraumatic Resp Effort & Inspection: normal respiratory effort and able to speak in complete sentences GI Inspection: No distended Palpation (GI): Soft to palpation and nontender Skin General skin exam: no rashes or lesions noted Neuro Other: Normal superficial sensation both lower extremities No footdrop bilaterally Intact toe position sense General: patient oriented x3 Assessment & Plan Assessment & Plan (1) Fibromyalgia, primary: Code(s): M79.7 - Fibromyalgia Category: Medical Plan: This is a 43-year-old female with fibromyalgia who returns for follow-up. Since last visit patient has been walking more. She walks regularly daily about 30 minutes. Advised patient to get a sleep study. Follow-up with psychotherapist/psychiatrist. Consider adding light exercises such as light weights, swimming or aquatherapy. Meds such as gabapentin can be considered. Follow-up with PCP Plan I spent 15 minutes reviewing patient's chart, evaluating patient, counseling patient and documenting in the chart Coding Level of Care Code Est Pt Level 3 (75379) Diagnoses Fibromyalgia, primary M79.7
[2024-04-23 12:51] VITALS: BP 122/70; PULSE 80; O2SAT 99; BMI 28.4
== END 2024-04-23 13:52 | disposition home or self-care (01) ==
PROVIDERS: PCP Nurse Practitioner Family; Visit Provider Student in an Organized Health Care Education/Training Program
DX: M79.7 Fibromyalgia (principal)
CPT/HCPCS: 99213

== ENCOUNTER → 2024-04-23 12:34 | Outpatient (BNVA) | payer OTHER, SELFPAY | PROVIDERS: PCP Nurse Practitioner Family; Visit Provider Student in an Organized Health Care Education/Training Program | DX: M79.7 Fibromyalgia (principal); R53.83 Other fatigue | CPT/HCPCS: 99212 ==

== ENCOUNTER 2024-07-20 13:45 | Outpatient (AMB) | payer OTHER, SELFPAY ==
--- NOTE | 2024-07-20 13:52 | A.OFFVIS_ITS ---
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 Main complaints-excessive daytime sleepiness Sleep questionnaire- Difficulty falling asleep-no Difficulty staying asleep-no Number of arousals-0 Snoring-yes Witnessed apneas-no Gasping arousals-no Nocturia-no GERD-no Vivid dreams-no Acting out dreams -no Abnormal behavior in sleep-no ABnormal movements in sleep-no Morning headaches-no Excessive daytime sleepiness-yes Daytime naps- yes restless legs- no Hallucinations- no sleep paralysis- no Drop attacks- no Sleep study-no ESS PFSH Medical History (Updated 07/20/24 @ 14:13 by Beverly Barker MD) Hypersomnia Snoring Deviated nasal septum, congenital Depression Surgical History History of knee surgery History of tubal ligation History of section Family History Father Unknown family medical history Mother No problems noted. Maternal Grandmother HTN (hypertension) Diabetes mellitus Son No problems noted. Daughter No problems noted. 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 Cognitive needs: No Hearing needs: No Vision needs: No Physical Exam Vital Signs: Last Vital Signs Pulse 106 H 07/20/24 13:53 BP 132/78 07/20/24 13:53 Pulse Ox 99 07/20/24 13:53 Oxygen Delivery Method Room Air 07/20/24 13:53 BMI result Body Mass Index 28.3 Const General: cooperative, healthy appearing and comfortable Nutritional Appearance: overweight Orientation/consciousness: patient oriented x3 Neuro Other: Mallampatti grade 4 General: patient oriented x3, gait normal, tone normal, moves all extremities and no focal motor deficits Assessment & Plan Assessment & Plan (1) Snoring: Code(s): R06.83 - Snoring Category: Medical (2) Hypersomnia: Code(s): G47.10 - Hypersomnia, unspecified Category: Medical Plan I will schedule her for a Home sleep test to evaluate for sleep apnea Orders: Orders RT home sleep study Today G47.10 - Hypersomnia, unspecified, R06.83 - Snoring Coding Level of Care Code New Pt Level 3 (32896) Diagnoses Snoring R06.83 Hypersomnia G47.10 [place] Sleepiness Scale Questions Sitting and reading: high chance of dozing Watching TV: high chance of dozing Sitting inactive in a theater, movie etc.: slight chance of dozing As a passenger in a car for an hour without break: moderate chance of dozing Lying down in the afternoon when circumstances permit: high chance of dozing Sitting and talking to someone: would never doze Sitting quietly after lunch without alcohol: would never doze In a car, while stopped for a few minutes in the traffic: would never doze ESS < 10: normal, ESS > 12: pathologic: 12
[2024-07-20 13:53] VITALS: BP 132/78; PULSE 106; O2SAT 99; BMI 28.3
== END 2024-07-20 14:18 | disposition home or self-care (01) ==
PROVIDERS: PCP Nurse Practitioner Family; Visit Provider Psychiatry & Neurology Neurology
DX: R06.83 Snoring (principal); G47.10 Hypersomnia, unspecified
CPT/HCPCS: 99203

== ENCOUNTER → 2024-07-20 13:45 | Outpatient (BNVA) | payer OTHER, SELFPAY | PROVIDERS: PCP Nurse Practitioner Family; Visit Provider Psychiatry & Neurology Neurology | DX: R06.83 Snoring (principal); G47.10 Hypersomnia, unspecified | CPT/HCPCS: 99202 ==

== ENCOUNTER → 2024-09-02 11:33 | Outpatient (REF) | payer OTHER, SELFPAY ==
--- OUTSIDE RECORDS SUMMARY | 2024-09-02 12:11 | XMS_ITS ---
[facility] [address] [address] [place] Address [address] [place] [address] Care Team Providers Care Principal Database Developer Name Role Phone Molina Shah Primary Care Provider Unav ailable Black, Fabby Unavailable [phone] Allergies Allergen (clinical drug ingredient) Drug/Non Drug Allergy documented on EMR Reaction Allergy Type Onset Date Status gentamicin Gentamicin Unknown Drug Allergy Activ e REASON FOR VISIT Skin Problem, Fungal Nails Medications Medication SIG (Take, Route, Frequency, Duration) Notes Start Date End Date Status Vitamin D3 Active Wellbutrin Active Ciclopirox Olamine 0.77 % 1 application Externally Twice a day to skin of feet including between the toes for 30 days Active Social History Tobacco Use: Social History Observation Description Date Details (start date - stop date) Never Smoker NA - NA Tobacco use other than smoking: Question Answer Notes Are you an other tobacco user? No Tobacco Control (Standard) Question Answer Notes Tobacco use: Nonsmoker Additional Findings: Tobacco non-user Current no nsmoker AUDIT-C (Standard) Question Answer Notes Did you have a drink containing alcohol in the p ast year? No Points 0 Interpretation Negative Vital Signs Height 5ft 7in in 07/28/2024 Weight 180 lbs 07/28/2024 BMI 28.19 kg/m2 07/28/2024 Blood pressure systolic 120 mm Hg 07/28/19 25 Blood pressure diastolic 70 mm Hg 025 Encounters Encounter Location Date [facility] [address] 07/28/2024 Fabby Black Pain in right toe(s) M79.674 ; Onychomycosis B35.1 ; Pain in left toe(s) M79.675 and Tinea pedis of both feet B35.3 Assessments Encounter Date Diagnosis (ICD Code) Assessment Notes Treatment Notes Treatment Clinical Notes Section Notes 07/28/2024 Pain in right toe(s) (ICD-10 - M79.674) 07/28/2024 Onychomycosis (ICD-10 - B35.1) Patient Educated with: FUNGUS NAIL INFECTIONS.pdf (FUNGUS NAIL INFECTIONS.pdf ) 07/28/2024 Pain in left toe(s) (ICD-10 - M79.675) 07/28/2024 Tinea pedis of both feet (ICD-10 - B35.3) Patient Educated with: ATHELETE .pdf (ATHELETE .pdf) Plan Of Treatment Medication Medication Name Sig Start Date Stop Date Notes Ciclopirox Olamine 0.77 % 1 application Externally Twice a day to skin of feet including between the toes for 30 days Treatment Notes Assessment Notes Onychomycosis Patient Educated wit h: FUNGUS NAIL INFECTIONS.pdf (FUNGUS NAIL INFECTIONS.pdf) Tinea pedis of both feet Patient Educate d with: ATHELETE .pdf (ATHELETE .pdf) Pending Test Test Name Order Date *Liver Function Test (LFT) 07/28/2024 Nail Panel 07/28/2024 Next Appt Details Follow Up: 4-6 Weeks, Reason : Provider Name:Fabby Carpenter Francisco , 09/09/2024 10:00:00 AM, [address] [place], [address], Progress Notes * Inge TRAMMELL MDOB:[birth year] (44 yo F)Acc No.[id number]:07/28/2024 Progress Notes Patient:?Inge TRAMMELL Provider:?Fabby Singh DPM :1980???Age:44 Y???Sex:Female D ate:07/28/2024 Address:[address] [place], [place] [id number] Pcp:EVERARDO Back Subjective: * Chief Complaints: * ???Skin ProblemFungal Nails * HPI: ???Painful Nails:?Pt States Last PCP Visit:?Date:?04/07/2024 ?Nature:?aching, tender, discolored, thick.?Location:?, Both feet.?Duration:?, several years.?Course:?worse.?Aggravated by:?shoegear causing difficulty standing/walking.?Treatments:?none.?Skin problems:?Nature:?scaling , redness.?Location:?B/L .?Duration:?several days.?Course:?worse.? * ROS:?General/Constitutional:?Nausea?denies.?Vomiting?denies.?Hunger Thirst?denies.?Loss appetite?denies.?Chills?denies.?Fatigue?denies.?Fever?denies.?Night Sweats?denies.?Unexplained weight loss?denies.?Unexplained weight gain?denies.?HEENTM:?Dentures?denies.?Dizziness?denies.?Glasses/contacts?admits.?Retinopathy?de nies.?Blurred/double vision?denies.?TMJ?denies.?Discharge/drainage?denies.?Implants?denies.?Sore throat?denies.?Dental implants?denies.?Hard of hearing ?denies.?Difficulty chewing/swallowing/speaking?denies.?Nose bleeds?denies.?Sore mouth?denies.?Respiratory:?On Oxygen?denies.?Pneumonia/pleurisy?denies.?Bronchitis?denies.?Emphysema?denies.?C oughing?denies.?Cough blood?denies.?Shortness of breath?denies.?Wheezing?denies.?Cardiovascular:?Pacemaker?denies.?MVP?denies.?WPW?denies.?CHF?denies.?Heart attack?denies.?Septal defect?denies.?Rapid beat?denies.?Chest pain ?denies.?Atrial Fib.?denies.?Murmur/Palpitations?denies.?Gastrointestinal:?Hemorrhoids?denies.?Stomach/Abdominal pain?denies.?Dark blood stool?denies.?Irritable bowel ?denies.?Constipation?denies.?Diarrhea?denies.?Hematology:?Swelling?denies.?Clots?denies.?Varicose Veins?denies.?Bruising?denies.?Bleeding problem?denies.?Genitourinary:?Blood urine?denies.?Frequent/Painfu/urination/bladder control?denies.?Kidney stones?denies.?Infection (UTI)?denies.?Nephropathy?denies.?sex trans dis (STD)?denies.?Prostate?denies.?Musculoskeletal:?Hammertoes?denies.?Bunions?denies.?Back Pain?denies.?Muscle Cramps/ Resting?denies.?Muscle cramps / walking?denies.?Generalized aches and pains?denies.?Weakness?denies.?Integ.:?Saunders?denies.?Scars?denies.?Corns/calluses?denies.?Ingrown nails?denies.?Painful nails?,admits.?Open Sores?denies.?Rashes?denies.?Neurologic:?Difficulty sleeping?denies.?Brain disorder?denies.?Numbness?denies.?Balance trouble?denies.?Confusion?denies.?Fainting/blackouts?denies.?Tingling?denies.?Tr emors?denies.? * Medical History:? * Surgical History:?knee surge ry 5/2022C-Section 09/04/2004 * Hospitalization/Major Diagno stic Procedure:?Denies Past Hospitalization * Family History:?Maternal Gra nd Mother: diabetes, arthritis, stroke, high blood pressure.? * Social History:?Tobacco Use:?Tobacco use other than smoking?Are you an other tobacco user??No ?Tobacco Control (Standard)?Tobacco use:?Nonsmoker ?Additional Findings: Tobacco non-user?Current nonsmoker ???Drugs/Alcohol:?Drugs?Have you used drugs other than those for medical reasons in the past 12 months??No ???Miscellaneous:?Caffeine: yes. ?Children: yes, 2. ?Exercise: yes, stretching, walking, stationary bike. ?Marital status: Single. 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 ???Drug/Alcohol:?AUDIT-C (Standard)?Did you have a drink containing alcohol in the past year??No ?Points?0 ?Interpretation?Negative * Medications:?TakingWellbutri n Vitamin D3 Medication List reviewed and reconciled with the patientTaking Wellbutrin Taking Vitamin D3 Medication List reviewed and reconciled with the patient * Allergies:?Gentamicinyes[All ergies Verified] Objective: * Vitals:?Ht: 5ft 7in, Wt:180, BMI:28.19, Shoe size: 8.5, BP:120/70mm Hg, Ht-cm: 170.18 cm, Wt-k.65 kg. * Examination: ???General Examination: ?GENERAL APPEARANCE:?Reveals a pleasant, alert, well nourished, well- developed, well hydrated individual, who demonstrates proper attention to hygiene/body habitus, and is in no acute distress, Pt serves as own historian for office visit today.?ORIENTED:?person, place, and time.?Nails: ?NAILS are:?Elongated, overgrown, dystrophic, lytic, greater than 3mm thick, discolored and friable with crumbly malodorous subungual debris, with pain on palpation , Elongated, overgrown, dystrophic, lytic, greater than 3mm thick, discolored and friable with crumbly malodorous subungual debris, with pain on palpation.?Dermatologic: ?SKIN FINDINGS:? Skin shows sign(s) of, erythema, scaling, in a moccasin fashion, no fissure(s) present, B/L.?Vascular: ?DP PULSES (B):?2/4, B/L.?PT PULSES (B):?2/4, B/L.?CAPILLARY FILL TIME:?immediate, all digits, B/L.?TROPHIC CONDITION-TEXTURE/ELASTICITY/TURGOR/HAIR GROWTH (B):?normal, B/L.?TEMPERTURE GRADIENT (C):?normal, warm to cool, proximal to distal, B/L, B/L.?PIGMENTATION:?normal, B/L.?Neurological: ?SENSORY:?Neurological exam reveals intact sensorium, pain sensation normal, vibration sensation intact, pinprick sensation is normal in the lower extremities, Pt denies, anesthesia, burning, paresthesia, tingling, B/L.? Assessment: * Assessment: 1.?Pain in right toe(s) - M7 9.674???2.?Onychomycosis - B35.1 (Primary)???Specify :Chronic problem, Worse (4) Rx Management (4)???3.?Pain in left toe(s) - M79.675???4.?Tinea pedis of both feet - B35.3???Specify :Acute problem, Uncomplicated (3),Rx drug management (4)??? Plan: * Treatment: 2.?Tinea pedis of both feet? Start Ciclopirox Olamine Cream, 0.77 %, 1 application, Externally, Twice a day to skin of feet including between the toes, 30 days, 120, Refills 3.?? Notes: Patient Educated with: ATHSOFIA .pdf (ATHELETE .pdf)?? * Procedure Codes:? * Preventive Medicine:? ??Counseling:?Discussion:?-04: Office or other outpatient visit for the evaluation and management of a new patient, which required a medically appropriate history and/or examination and MODERATE level of DECISION MAKING for: 1 OR MORE CHRONIC PROBLEM(S) THATS WORSENING, 2 STABLE CHRONIC PROBLEMS, A NEWLY DIAGNOSED PROBLEM WITH UNCERTAIN PROGNOSIS, AN ACUTE COMPLICATED INJURY WITH MULTIPLE TREATMENT OPTIONS, OR AN ACUTE PROBLEM WITH ACCOMPANYING SYSTEMIC SYMPTOMS, THAT POSE(S) A MODERATE RISK OF MORBIDITY. THIS CONDITION MAY ALSO INCLUDE RX DRUG MANAGEMENT, OR A DECISON FOR MINOR SURGERY. The visit on the day of the encounter encompassed interpreting the data and educating the patient as to the nature of their condition, treatment options available according to their individual PMH, meds, allergies, and overall health/living conditions, as well as any potential risks or complications that may occur from a failure to adhere to, and participate in, the recommended course of therapy. The discussion included a complete verbal, and/or written explanation of the examination results, any x-rays taken, the proposed diagnosis, and outline of the treatment plan. A schedule for future care needs was also explained. The patient verbalized an understanding of the instructions at this time and agreed to be an active participant in their treatment. If the patient should think of any questions or concerns after the visit, I have encouraged the patient to call the office.?Fungal Nail Counseling:?The patient was counseled on the diagnosis, potential etiologies (including, but not limited to, environmental factors, genetic, immune deficiency), and the multiple treatment options for Onychomycosis. We discussed the risks and benefits of each option from performing no treatment, to ultraviolet light shoe treatment, to laser nail treatment, to applying topical antifungals, to taking oral antifungal medication, to surgical removal of the involved nail(s) with or without performing a matricectomy, or any combination thereof. We discussed the advantages and disadvantages of each of possible treatment and importance for adherence to all the recommended therapies for optimum success. This includes the necessity for weekly emery board self nail home debridements, and control the nail and skin environment as much as possible by only using a fresh, dry pair of shoes/socks each day, as well as keeping the skin as dry as possible through the use of sprays/powders if necessary. The patient was instructed to discard the emery board after use to prevent reinfection of the involved nail(s). We discussed the mycological and visual clinical effectiveness of topical vs oral antifungal treatments as well as each ones potential side effects and/or any patient- specific medication interactions. We discussed the reasons behind the important requirement of regular liver function testing with oral antifungal therapy for safety. Patient questions regarding use, dosage, successful outcomes, blood tests, and possible pharmaceutical interactions were reviewed and the patient verbalized that all answers were clearly understood, An LFT was ordered in preparation for Lamisil prescription therapy, Discussed and recom biopsy to confirm the patients condition.?Tinea Pedis:?The patient was counseled on the diagnosis, potential etiologies, and treatment options for their skin condition. We discussed the risks and benefits of each option from performing no treatment, to utilizing OTC topical skin creams, prescription topical creams, customized compounded topical medications, and, if necessary, to utilize oral antifungal therapy. We discussed the advantages and disadvantages of each possible treatment and importance for adherence to all the recommended therapies for optimum success and avoid potential complications such as open sore/infection/possible hospitalization. We discussed the potential effectiveness of each topical preparation as well as each ones possible side effects and/or patient medication interactions if oral therapy is selected. Patient questions re: the advantages and disadvantages of each treatment choice, medication use/dosage, successful outcomes, and application consistency were reviewed and the patient verbalized that all answers were clearly understood. The patient was told they can help alleviate symptoms by utilizing moisture absorbant innersoles with activated charcoal and baking soda, applying antifungal sprays daily, aerating toe web spaces at night by putting cotton or lambs wool between the toes, alternating shoe gear daily if possible so they can dry out, changing socks at least once during the day, wearing well-ventilated shoes or sandals. The patient has decided to apply antifungal skin creams to their feet as directed. Rx was sent to their pharmacy at the time of visit.? * Follow Up:?4-6 Weeks * Images: * Sign off status: Completed true * Provider:Jes Singh DPM Date:?2024 Generated for Gagei yara/Arong/eTransmitting on:?09/02/2024 12:11 PM EST History and Physical Notes * HPI (History of Present Illness) Category Sub-Category Detail Notes Category Not es Painful Nails Aggravated by: shoegear causing difficulty standing/walking Onset/Cause: Course: worse Duration: , several years Location: , Both feet Nature: aching, tender, disc olored, thick Treatments: none Pt States Last PCP Visit: Date:: 04/07/2024 Skin problems Nature: scaling , redness Location: B/L Duration: several days Course: worse Examination Category Sub-Category Detail Notes Category Not es Neurological SENSORY: Neurological exa m reveals intact sensorium, pain sensation normal, vibration sensation intact, pinprick sensation is normal in the lower extremities, Pt denies, anesthesia, burning, paresthesia, tingling, B/L Dermatologic SKIN FINDINGS: Skin shows sign( s) of, erythema, scaling, in a moccasin fashion, no fissure(s) present, B/L General Examination GENERAL APPEARANCE: Reveals a pleasant, alert, well nourished, well-developed, well hydrated individual, who demonstrates proper attention to hygiene/body habitus, and is in no acute distress, Pt serves as own historian for office visit today ORIENTED: person, place, and t keyana Vascular DP PULSES (B): 2/4, B/L PT PULSES (B): 2/4, B/L CAPILLARY FILL TIME: immediate, all digi ts, B/L TEMPERTURE GRADIENT (C): normal, warm to cool, proximal to distal, B/L, B/L TROPHIC CONDITION-TEXTURE/ELASTICITY/TURGOR/HAIR GROWTH (B): normal, B/L PIGMENTATION: normal, B/L Nails NAILS are: Elongated, overg rown, dystrophic, lytic, greater than 3mm thick, discolored and friable with crumbly malodorous subungual debris, with pain on palpation , Elongated, overgrown, dystrophic, lytic, greater than 3mm thick, discolored and friable with crumbly malodorous subungual debris, with pain on palpation
--- OUTSIDE RECORDS SUMMARY | 2024-09-02 12:11 | XMS_ITS ---
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 Generated for Printi yara/Dominguez/eTransmitting on:?09/02/2024 12:11 PM EST
--- OUTSIDE RECORDS SUMMARY | 2024-09-02 12:11 | XMS_ITS | Data Portability ---
Author Organization [facility] Ravi Burdick [facility], [facility] Address [address] [place] [address] Assessment Encounter Date Assessment Date Assessment LastModified by Organization Details LastModified Time 12/13/2023 12/13/2023 Imaging: Imaging ordered, independently reviewed and interpreted by Terry Sepulveda MD reveals the following findings: XR Knee Left Knee: Three views of the knee were obtained including AP, sunrise, and lateral views. Status post patellofemoral joint replacing arthroplasty. No evidence of complication, well fixed, well aligned. There is no evidence of loosening or migration. There is no evidence of osteolysis. No fractures are present. Alignment: Neutral Impression: Status post left PFJ arthroplasty, 1 year out Plan: The patient is doing well, continue activities as tolerated. Further follow-up with me as needed [email or web address] Not available 12/13/2023 13:27:29 Plan of Treatment Reminders Order Date Submit Date Provider Last Modified By Organization Details Last Modified Time Details Appointments None recorded. Lab ESR (erythroc yte sedimenta tion rate), blood 2023 024 CHAPPELLS [facility], [address], [place], [address], 4 06:05:29 C reactive protein, QN, serum or plasma 2023 024 CHAPPELLS [facility], [address], [address] [facility], [place], [address], 4 06:05:30 CBC w/ auto diff 2023 024 MIKY [facility], [address], [address], [address], [place], [address], 4 06:05:27 Referral None recorded. Procedures None recorded. Surgeries None recorded. Imaging XR, knee, 3 view - rm 102 - ltkr 2023 024 [email or web address], [address], [address], [place], [address], 4 10:03:04 XR, knee, 3 view - 204 LTKR annual AB 2023 024 [email or web address] [facility], [address], [address], [place], [address], 4 10:51:21 Medication Orders Celebrex 200 mg capsule 2023 024 [id number], [address] [place], [place], [id number], 4 10:41:15 Patient TargetsNo targets recorded. Patient InstructionsNo instructions recorded. Reason for Referral None Reported. Results Created Date Observation Date Name Description Value Unit Range Abnormal Flag Note LastModifiedBy Organization Detail LastModifiedTime 05/26/20 24 05/26/2024 CBC WITH DIFFE RENTI AL/PL ATELE T WBC 7.5 x10e3 /uL 3.4-10 .8 normal Not Available [facility] ([facility]) [address] [place], [address], 05/27/2024 06:05:27 05/26/20 24 05/26/2024 CBC WITH DIFFE RENTI AL/PL ATELE T RBC 4.70 x10e6 /uL 3.77-5 .28 normal Not Available [facility] ([facility]) [address] [place], [address], 05/27/2024 06:05:27 05/26/20 24 05/26/2024 CBC WITH DIFFE RENTI AL/PL ATELE T hemoglobin 13.8 g/dL 11.1-1 5.9 normal Not Available [facility] ([facility]) [address] [place], [address], 05/27/2024 06:05:27 05/26/20 24 05/26/2024 CBC WITH DIFFE RENTI AL/PL ATELE T hematocrit 41.6 % 34.0-4 6.6 normal Not Available [facility] ([facility]) [address] [facility], [place], [address], 05/27/2024 06:05:27 05/26/20 24 05/26/2024 CBC WITH DIFFE RENTI AL/PL ATELE T MCV 89 fL 79-97 normal Not Available [facility] ([facility]) [address] [place], [address], 05/27/2024 06:05:27 05/26/20 24 05/26/2024 CBC WITH DIFFE RENTI AL/PL ATELE T MCH 29.4 pg 26.6-3 3.0 normal Not Available [facility] ([facility]) [address] [place], [address], 05/27/2024 06:05:27 05/26/20 24 05/26/2024 CBC WITH DIFFE RENTI AL/PL ATELE T MCHC 33.2 g/dL 31.5-3 5.7 normal Not Available [facility] ([facility]) [address] [place], [address], 05/27/2024 06:05:27 05/26/20 24 05/26/2024 CBC WITH DIFFE RENTI AL/PL ATELE T RDW 13.2 % 11.7-1 5.4 Not Available [facility] ([facility]) [address] [place], [address], 05/27/2024 06:05:27 05/26/20 24 05/26/2024 CBC WITH DIFFE RENTI AL/PL ATELE T platelets 391 x10e3 /uL 150-45 0 normal Not Available [facility] ([facility]) [address] [facility], [place], [address], 05/27/2024 06:05:27 05/26/20 24 05/26/2024 CBC WITH DIFFE RENTI AL/PL ATELE T neutrophils 58 % not estab. normal Not Available [facility] ([facility]) [address] [facility], [place], [address], 05/27/2024 06:05:27 05/26/20 24 05/26/2024 CBC WITH DIFFE RENTI AL/PL ATELE T lymphs 29 % not estab. normal Not Available [facility] ([facility]) [address] [facility], [place], [address], 05/27/2024 06:05:27 05/26/20 24 05/26/2024 CBC WITH DIFFE RENTI AL/PL ATELE T monocytes 8 % not estab. normal Not Available [facility] ([facility]) [address] [facility], [place], [address], 05/27/2024 06:05:27 05/26/20 24 05/26/2024 CBC WITH DIFFE RENTI AL/PL ATELE T eos 3 % not estab. normal Not Available [facility] ([facility]) [address] [place], [address], 05/27/2024 06:05:27 05/26/20 24 05/26/2024 CBC WITH DIFFE RENTI AL/PL ATELE T basos 1 % not estab. normal Not Available [facility] ([facility]) [address] [place], [address], 05/27/2024 06:05:27 05/26/20 24 05/26/2024 CBC WITH DIFFE RENTI AL/PL ATELE T immature cells SUPERVISOR PIPELINES Not Available [facility] ([facility]) [address] [place], [address], 05/27/2024 06:05:27 05/26/20 24 05/26/2024 CBC WITH DIFFE RENTI AL/PL ATELE T neutrophils (absolute) 4.4 x10e3 /uL 1.4-7. 0 normal Not Available [facility] ([facility]) [address] [place], [address], 05/27/2024 06:05:27 05/26/20 24 05/26/2024 CBC WITH DIFFE RENTI AL/PL ATELE T lymphs (absolute) 2.2 x10e3 /uL 0.7-3. 1 normal Not Available [facility] ([facility]) [address] [place], [address], 05/27/2024 06:05:27 05/26/20 24 05/26/2024 CBC WITH DIFFE RENTI AL/PL ATELE T monocytes(ab solute) 0.6 x10e3 /uL 0.1-0. 9 normal Not Available [facility] ([facility]) [address] [place], [address], 05/27/2024 06:05:27 05/26/20 24 05/26/2024 CBC WITH DIFFE RENTI AL/PL ATELE T eos (absolute) 0.2 x10e3 /uL 0.0-0. 4 normal Not Available [facility] ([facility]) [address] [place], [address], 05/27/2024 06:05:27 05/26/20 24 05/26/2024 CBC WITH DIFFE RENTI AL/PL ATELE T baso (absolute) 0.0 x10e3 /uL 0.0-0. 2 normal Not Available [facility] ([facility]) [address] [place], [address], 05/27/2024 06:05:27 05/26/20 24 05/26/2024 CBC WITH DIFFE RENTI AL/PL ATELE T immature granulocytes 1 % not estab. Not Available [facility] ([facility]) [address] [facility], [place], [address], 05/27/2024 06:05:27 05/26/20 24 05/26/2024 CBC WITH DIFFE RENTI AL/PL ATELE T immature grans (abs) 0.0 x10e3 /uL 0.0-0. 1 Not Available [facility] ([facility]) [address] [facility], [place], [address], 05/27/2024 06:05:27 05/26/20 24 05/26/2024 CBC WITH DIFFE RENTI AL/PL ATELE T NRBC SUPERVISOR PIPELINES Not Available [facility] ([facility]) [address] [facility], [place], [address], 05/27/2024 06:05:27 05/26/20 24 05/26/2024 CBC WITH DIFFE RENTI AL/PL ATELE T hematology comments: SUPERVISOR PIPELINES Not Available [facility] ([facility]) [address] [facility], [place], [address], 05/27/2024 06:05:27 05/26/20 24 05/27/2024 SEDIM ENTAT ION RATE- WESTE RGREN sedimentatio n rate-westerg reji 15 mm/HR 0-32 normal Not Available [facility] ([facility]) [address] [facility], [place], [address], 05/27/2024 06:05:28 05/26/20 24 05/27/2024 C-FLACA CTIVE PROTE IN, QUANT C-reactive protein, quant 3 mg/L 0-10 normal Not Available [facility] ([facility]) [address] [facility], [place], [address], 05/27/2024 06:05:30 03/13/20 24 10/11/2022 imagi ng/di agnos tic resul t No observ ation record ed. [email or web address] Not Available 02/14 05:15:18 03/13/20 24 11/06/2021 imagi ng/di agnos tic resul t No observ ation record ed. [email or web address] Not Available 02/14 05:15:26 05/26/20 24 05/26/2024 XR, knee, 3 view [email or web address] ?Encry pted=s hAaTro YD8dLq bEUv6g %2BXZw aYqtaq 0bqfl% 2Fg9IQ a4ajBk vP9nXo QUaueC m3YtLR FvZlgJ JJ8mAn HZtai3 1w7072 AC0Kqa HWCUae gKiQtr MwF INTERFACE [facility] [address], [place], [address], 05/26/2024 10:15:46 05/26/20 24 05/26/2024 XR, knee, 3 view [email or web address] ?Encry pted=s hAaTro YD8dLq bEUv6g %2BXZw aYqtaq 0bqfl% 2Fg9IQ a4ajBk vP9nXo QUaueC m3YtLR FvZlg JJ8mAn HZtai3 0g8120 AC0Kqa HWCUae gKiQtr MwF INTERFACE [facility] [address], [place], [address], 05/26/2024 10:15:49 Result Notes None recorded. Problems Name Problem SNOMED Code Status Onset Date Resolution Date Notes Provider Name and Address Organization Details Recorded Time No complaints 072785664 Active Status : 'A'; Not Available [facility] 4 09:20:24 History of left total knee replacemen t 3661683819276 105 Active 2023 Terry Sepulveda MD [address], [place], [address] , [facility] 4 13:27:27 Problem Notes None recorded. Procedures Surgical History None recorded. Imaging Results Imaging Date Name Status LastModified by Organiz [facility] Details LastModified Time 10/11/2022 imaging/diag nostic result completed Information not available 03/13/2024 05:15:18 11/06/2021 imaging/diag nostic result completed Information not available 03/13/2024 05:15:26 05/26/2024 XR, knee, 3 view completed INTERFACE [facility] [address], [place], [address], 05/26/2024 10:15:46 05/26/2024 XR, knee, 3 view completed INTERFACE [facility] [address], [place], [address], 05/26/2024 10:15:49 Procedure Notes None recorded. Medical Equipment None Reported. Allergies No known drug allergies Medications Name Sig Start Date Stop Date Status Note LastModified by Organization Details LastModified Time celecoxib 200 mg capsule TAKE 1 CAPSULE BY MOUTH EVERY DAY active Not Available Not Available No t Available amoxicillin 500 mg capsule TAKE 4 CAPSULES BY MOUTH 1 HOUR BEFORE DENTAL APPOINTME NT DIRECTED active Not Available Not Available No t Available buspirone 5 mg tablet TAKE 1 TABLET BY MOUTH TWICE DAILY active Not Available Not Available No t Available verapamil 40 mg tablet TAKE 1 TABLET BY MOUTH EVERY NIGHT AT BEDTIME FOR 1 WEEK THEN TAKE 1 TABLET BY MOUTH TWICE DAILY FOR 30 DAYS DIRECTED active Not Available Not Available No t Available ibuprofen 800 mg tablet TAKE 1 TABLET BY MOUTH TWICE DAILY NEEDED FOR PAIN active Not Available Not Available No t Available doxepin 25 mg capsule TAKE 1 CAPSULE BY MOUTH DAILY AT BEDTIME active Not Available Not Available No t Available meloxicam 15 mg tablet TAKE 1 TABLET BY MOUTH EVERY DAY active Not Available Not Available No t Available topiramate 25 mg tablet TAKE 1 TABLET BY MOUTH DAILY AT BEDTIME active Not Available Not Available No t Available valacyclovi r 500 mg tablet TAKE 1 TABLET BY MOUTH EVERY DAY active Not Available Not Available No t Available acetaminoph en 500 mg tablet TAKE 2 TABLETS BY MOUTH EVERY 8 HOURS NEEDED FOR PAIN active Not Available Not Available No t Available betamethaso ne valerate 0.1 % topical cream APPLY TOPICALLY EVERY DAY NEEDED FOR SKIN IRRITATIO N active Not Available Not Available No t Available nortriptyli ne 10 mg capsule TAKE 1 CAPSULE BY MOUTH EVERY DAY active Not Available Not Available No t Available betamethaso ne, augmented 0.05 % topical ointment APPLY TOPICALLY TO THE AFFECTED AREA TWICE DAILY FOR 2 WEEKS . TAKE 1 WEEK OFF THEN REPEAT NEEDED active Not Available Not Available No t Available gabapentin 100 mg capsule TAKE 1 CAPSULE BY MOUTH AT BEDTIME active Not Available Not Available No t Available ketoconazol e 2 % topical cream APPLY TOPICALLY TO THE AFFECTED AREA DAILY FOR 30 DAYS active Not Available Not Available No t Available fluticasone propionate 50 mcg/actuati on nasal spray,suspe nsion SHAKE LIQUID AND USE 2 SPRAYS IN EACH NOSTRIL DAILY active Not Available Not Available No t Available Wellbutrin XL 150 mg 24 hr tablet, extended release TAKE 1 TABLET BY MOUTH EVERY MORNING active Not Available Not Available No t Available Wellbutrin XL 300 mg 24 hr tablet, extended release TAKE 1 TABLET BY MOUTH DAILY active Not Available Not Available No t Available topiramate 50 mg tablet TAKE 1 TABLET BY MOUTH AT BEDTIME 05/26 completed Not Available Not Available Not Available diclofenac sodium active Not Available Not Available Not Available diclofenac 1 % topical gel APPLY 2 GRAMS TO THE AFFECTED AREA(S) BY TOPICAL ROUTE 4 TIMES PER DAY active Not Available Not Available No t Available cholecalcif lance (vitamin D3) 50 mcg (2,000 unit) tablet TAKE 1 TABLET BY MOUTH EVERY DAY active Not Available Not Available No t Available oxycodone HCl-oxycodo ne-ASA 1 every [address] WHILE TAKING THIS MEDICATIO N 11/24 completed Statu s: 'Curr ent'; Not Available Not Available Not Available diclofenac 1.5 % topical drops APPLY 1 TO 3 GRAMS TOPICALLY TO AFFECTED AREA THREE TO FOUR TIMES DAILY DIRECTED active Not Available Not Available No t Available Vitals Date Recorded Body height Body mass index (BMI) Body weight Provider Name and Address Organization Details Last Updated DateTime 12/13/2023 167.64 cm 28.9 kg/m2 07215.03 g JASMYN DIOR [place] [facility] 12/13/2023 11:43:22 Date Recorded Body height Body mass index (BMI) Body weight Provider Name and Address Organization Details Last Updated DateTime 05/26/2024 167.64 cm 28.9 kg/m2 08886.03 g RAJNI Carpenter [facility] 05/26/2024 10:05:36 Social History Question Answer Notes LastModified by Organizat ion Details LastModified Time Tobacco Smoking Status Never Smoker RAJNI PAIGE kodi [facility] 05/26/2024 10:06:38 What Is Your Level Of Alcohol Consumption? None Information not available 05/26/2024 Do You Or Have You Ever Used Any Other Forms Of Tobacco Or Nicotine? No Information not available 05/26/2024 Sex: Unknown Functional Status None recorded. Mental Status None recorded. Family History Nothing Reported. Medical History Condition Response Anxiety/Depression Y Arthritis Y Gynecological HistoryNo gynecological history recorded. Obstetrics History GPAL:G 0 P 0 0 0 0 Past Encounters Encounter ID Performer Location Encounter Start Date Encounter Closed Date Diagnosis/Indication Diagnosis SNOMED-CT Code Diagnosis ICD10 Code Diagnosis Note [id number] MD Cecil Altamirano [address] [place] [address] 12/13/2023 10:24:54 01/06/2024 13:15:25 History of left total knee replacement 9773129018 366735 Z96.425 [id number] DEANNE Mccormack [address] [place] [address] 05/26/2024 09:51:54 06/15/2024 10:03:04 History of left total knee replacement 5579814179 398675 Z96.652 Health Concerns Section Related Observation LastModified by Organization Detai ls LastModified Time None Recorded Concern Status LastModified by Organization Details LastModified Time None Recorded Advance Directives Directive None Recorded Payers Encounter Date Sequence Insurance Name Policy Number Policy Montero Covered Member ID Montero Member ID Guarantor Name 12/13/2023 1 [facility] - DOS ON OR AFTER 2022 - ONE CARE (MEDICARE REPLACEMENT/ADV ANTAGE - HMO) Inge Trammell [id number] Inge Trammell 05/26/2024 1 [facility] - DOS ON OR AFTER 2022 - ONE CARE (MEDICARE REPLACEMENT/ADV ANTAGE - HMO) Inge Trammell [id number] Inge Trammell Notes Date Note Type Note Provider Name and Address Organization Details Recorded Time 12/13/2023 text/html History of prese nt illness:This patient follows up today and is now 1 year out from left patellofemoral joint replacement arthroplasty. Their pain is well controlled and they have regained normal range of motion. Able to do current activities without significant difficulty. They have no major complaints at this time and are satisfied with their current state of recovery.Past family, medical, social history and review of systems has been reviewed and updated, and is located in the patient? s chart. Terry Sepulveda MD [address] [place] [address], [address], [facility]3] [facility] 12/13/2023 13:27:42 05/26/2024 text/html I am seeing the patient today under the supervision of {{Jaya Kevin* Derick}} who was available but who did not see the patient. HPI: 44 y.o. female patient presents today for left knee pain and stiffness that began last 05/21 without specific injury. History of left patellofemoral joint arthroplasty Dr. Sepulveda September 2022. Denies fevers or chills. She reports stiffness with range of motion and mild swelling. She wanted to discuss cortisone injection today. Past family, social history and review of systems has been reviewed, updated and is located in the patient? s chart. PHYS EXAM:No acute distress. Alert and oriented. Gait is symmetric.Left knee: Anterior knee incision is well-healed, no drainage. No ecchymosis or erythema. No warmth. Mild effusion. Knee range of motion 0-120. Calf is soft nontender. Knee is stable to valgus and varus stress. No crepitus. Sensation intact. X-RAYS:4v X-rays of the {{Right Left* Bilate ral}} knee were ordered, obtained and reviewed today at [facility] demonstrates status post patellofemoral joint arthroplasty. No evidence of complication, well fixed, well aligned. There is no evidence of loosening or migration. There is no evidence of osteolysis. No fractures are present. IMPRESSION: {{Right Left* Bilate ral}} knee pain and mild effusion, s/p left patellofemoral joint arthroplasty Dr. Sepulveda September 2022 PLAN: Findings reviewed. Recommended labs to rule out any sign of infection, however, my suspicion is low at this time. Reassurance provided that her x-rays demonstrate hardware is in good position, no fractures. Recommended elevation, ice, Celebrex which was sent to her pharmacy and she will start this after her lab work. Discussed avoiding other NSAIDs while taking this medication. She will follow-up as symptoms dictate. All of her concerns are addressed and she understands and agrees with the plan. Speech recognition fitness director software was used to create portions of this document. An attempt at proofreading has been made to minimize errors. Please call for corrections. Edda Wilson PA-C [address] [facility] [address], [place], [address], [facility] 05/26/2024 12:13:45 OBGyn Episode No OBEpisode recorded.
--- OUTSIDE RECORDS SUMMARY | 2024-09-02 12:12 | XMS_ITS | Patient Health Record ---
Author Organization [facility] Address [address] [place] [address] Care Team Providers Care Track Liner Operator Name Role Phone Molina Shah Primary Care Provider Unav ailable Black, Fabby Unavailable [phone] Allergies Allergen (clinical drug ingredient) Drug/Non Drug Allergy documented on EMR Reaction Allergy Type Onset Date Status gentamicin Gentamicin Unknown Drug Allergy Activ e Reason For Referral No Information Medications Medication SIG (Take, Route, Frequency, Duration) Notes Start Date End Date Status Vitamin D3 Active Wellbutrin Active Terbinafine HCl 250 MG 1 tablet Orally O nce a day for 7 days days then stop for 3 weeks repeat cycle for 90 days 07/31/2024 Active Ciclopirox Olamine 0.77 % 1 application [...] No Points 0 Interpretation Negative Vital Signs Blood pressure diastolic 70 mm Hg 07/28/2024 Height 5ft 7in in 07/28/2024 Blood pressure systolic 120 mm Hg 07/28/2024 Weight 180 lbs 07/28/2024 BMI 28.19 kg/m2 07/28/2024 Encounters Encounter Location Date [facility] [address] [facility] [place] [id number] 07/28/2024 Fabby Singh Pain in right toe(s) M79.674 ; Onychomycosis B35.1 ; Pain in left toe(s) M79.675 and Tinea pedis of both feet B35.[address] [address] 07/01/2024 Fabby Singh [facility] [address] [address] 07/28/2024 Fabby Singh Assessments Encounter Date Diagnosis (ICD Code) Assessment [...] ATHELETE .pdf (ATHELETE .pdf) Plan Of Treatment Pending Test Test Name Order Date *Liver Function Test (LFT) 07/28/2024 Nail Panel 07/28/2024 Next Appt Details Provider Name:Fabby Singh , 09/09/2024 10:00:00 AM, [address] [facility], [place], [address], Insurance Providers Payer Name Payer Address Payer Phone Subscriber Number Group Number Insured Name Patient Relationship to Insured Coverage Start Date Coverage End Date [facility] Adv [address] [place] [id number] Inge Trammell Self - patient is the insured Medical (General) History Medical History History ICD Code Anxiety Back,Hip,and Knee pain covid-19 Depression Fibromyalgia Headaches/Migraines Reynauds syndrome Sciatica sinusitis Chicken pox Joint implants/screws Surgical History Surgery Date(Month/Year) knee surgery 11/2021 09/04/2004
--- OUTSIDE RECORDS SUMMARY | 2024-09-02 12:12 | XMS_ITS ---
Author Organization [facility] Address [address] [place] [address] Care Team Providers Care Instrument Repair Specialist Name Role Phone Molina Shah Primary Care Provider Unav ailable Francisco, Fabby Unavailable [phone] REASON FOR VISIT BAKO Medications Medication SIG (Take, Route, Fr equency, Duration) Notes Start Date End Date Status Terbinafine HCl 250 MG 1 tablet Orally O nce a day for 7 days days then stop for 3 weeks repeat cycle for 90 days 07/31/2024 Active Encounters Encounter Location Date Provider Diagnosis [address] [address] 07/28/2024 Fabby Black Plan Of Treatment Medication Medication Name Sig Start Date Stop Date Notes Terbinafine HCl 250 MG 1 tablet Orally O nce a day for 7 days days then stop for 3 weeks repeat cycle for 90 days 07/31/2024 Next Appt Details Provider Name:Fabby Singh , 09/09/2024 10:00:00 AM, [address] [facility], [place], [address], Progress Notes * Inge TRAMMELL MDOB:[birth year] (44 yo F)Acc No.[id number]:07/28/2024 Patient:?Inge TRAMMELL :1980???Age:44 Y???Sex:Female Address:[address] [place] [address], [address] * Refills? Start Terbinafine HCl Tablet, 250 MG, Orally, 21, 1 tablet, Once a day for 7 days days then stop for 3 weeks repeat cycle, 90 days, Refills=3 * true * Date:? Generated for Neena livingston/Dominguez/Nika on:?09/02/2024 12:11 PM EST
== END ==
LOC: HO.SL 11:33
PROVIDERS: PCP Nurse Practitioner Family; Visit Provider Psychiatry & Neurology Neurology
DX: G47.10 Hypersomnia, unspecified (principal); R06.83 Snoring
CPT/HCPCS: 95806

== ENCOUNTER → 2024-09-02 12:59 | Outpatient (BNV) | payer OTHER, SELFPAY | PROVIDERS: PCP Nurse Practitioner Family; Visit Provider Psychiatry & Neurology Neurology | DX: R06.83 Snoring (principal); G47.10 Hypersomnia, unspecified | CPT/HCPCS: 95806 ==

== ENCOUNTER 2024-10-01 10:56 | Outpatient (REF) | payer OTHER, SELFPAY ==
[2024-10-01 15:22] LABS: Appearance Urine Clear; Color Urine Yellow; Glucose Urine UA Negative (Negative); Leukocyte Esterase Urine Large (3+) (Negative); Nitrite Urine Negative (Negative); UMIC TRIGGER UACC YES; Urine Blood Trace (Negative); Urine Ketones Negative (Negative); Urine Protein Negative (Neg-Trace)
[2024-10-01 16:48] LABS: Bacteria Urine 4+ (None Seen); Hyaline Casts Urine 0-2 /LPF (0-2); RBC Urine 0-2 /HPF (0-2); UACC Culture Trigger YES
== END 2024-10-01 10:57 | disposition home or self-care (01) ==
LOC: HO.LNP 10:56
PROVIDERS: PCP Nurse Practitioner Family; Visit Provider Nurse Practitioner Family
DX: Z00.00 Encounter for general adult medical examination without abnormal findings (principal); N39.0 Urinary tract infection, site not specified
CPT/HCPCS: 81001; 81003; 87086; 87088; 87186; 96127; 99396

== ENCOUNTER 2024-10-01 10:56 | Outpatient (AMB) | payer OTHER, SELFPAY ==
[2024-10-01 10:57] VITALS: BP 130/80; PULSE 71; TEMP 36.6; O2SAT 99; BMI 26.0
--- NOTE | 2024-10-01 10:57 | MHC.PC.OV ---
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 Required: No Accompanied by: Self / Same As Patient Allergies gentamicin Allergy (Unknown, Verified 10/01/24 10:58) Unknown Medication List - Last Reconciled 10/01/24 by DANIELLA Rowe- acetaminophen (Tylenol Extra Strength) 1,000 mg (2 x 500 mg) PO Q8H PRN 30 days cholecalciferol (vitamin D3) 50 mcg PO DAILY 90 days ciprofloxacin HCl 250 mg PO BID 3 days fluticasone propionate 50 mcg/actuation (Allergy Relief (fluticasone)) 2 sprays intranasal DAILY 30 days ibuprofen (IBU) 800 mg PO BID PRN 30 days terbinafine HCl mg PO Wellbutrin XL (bupropion HCl) 300 mg PO DAILY NS Tobacco use date assessed: 10/01/24 Dental Screening Dental Screen Date: 10/01/24 Did you have a dental visit in the last 12 months?: Yes Did you have a dental problem in the last 6 months where you did not have access to dental care?: No Was dental information given to patient?: Patient has dentist HPI ANNUAL PE HPI Details History of Present Illness The patient is a 44-year-old female presenting with symptoms of a urinary tract infection. She reports experiencing a burning sensation during urination and an increased frequency of urination. In addition, there is no presence of flank pain or costovertebral angle tenderness, and she denies any gastrointestinal symptoms such as constipation, diarrhea, or blood in stools. There are no complaints or worries related to chest pain or shortness of breath, allowing us to focus primarily on her urinary symptoms and overall preventative care measures. Health Maintenance - Mammogram is up to date. - Gynecological exam and Pap smear are up to date. - Encouraged to obtain laboratory tests in the near future. - Resubmission of referral for gastrointestinal evaluation for colon cancer screening, which is due. Social History Review of Systems - Cardiovascular: Denies chest pain. - Respiratory: Denies shortness of breath. - Gastrointestinal: Denies abdominal pain, no blood in stool, constipation, or diarrhea. -denies any si or hi. She is working on finding her own therapist Physical Exam General: Cooperative, healthy appearing, comfortable, no acute distress and well developed Orientation: Patient oriented x3 Limitations: No limitations Head: Normal to inspection Ears: Hearing grossly normal bilaterally Nose: Normal external nose present Face and sinus: Normal facial exam Eyes: Appearance normal, both eyes and all related structures Neck: Normal visual inspection and Yes full ROM Respiratory: Normal respiratory effort and able to speak in complete sentences. Clear to auscultation bilaterally Cardiovascular: Regular rate and rhythm. Normal S1 and S2 GI: Normal to inspection. Soft to palpation and nontender Skin: No rashes or lesions noted Neuro: Patient oriented x3 Extremities: Normal to inspection Results Plan The patient has been diagnosed with a urinary tract infection and prescribed Ciprofloxacin for treatment. A urine culture and sensitivity test will be conducted to confirm the diagnosis and specify potential adjustments in antibiotic therapy. Regular health maintenance has been reiterated, with emphasis on obtaining pending lab tests and completing the due colon cancer screening. Current preventative measures include up-to-date mammogram and gynecological exams. Discussion Notes In our discussion, I explained the diagnosis of a urinary tract infection to the patient, outlining the rationale for initiating Ciprofloxacin therapy. I discussed the expected benefits and potential risks of the medication, ensuring that she understood the need to complete the full course of antibiotics. Additionally, I discussed the procedure for the urine culture and sensitivity test to further elucidate the most effective antibacterial treatment if needed. We covered the continuity of her health maintenance covering screenings such as mammogram and Pap smear, and the necessity of colon cancer screening for which a referral will be pursued. I addressed possible side effects and instructed her on signs that warrant medical attention, thus providing comprehensive anticipatory guidance. Patient Instructions - Begin taking Ciprofloxacin as prescribed to treat the urinary tract infection. - Ensure to complete the entire course of the antibiotic even if symptoms improve. - Be vigilant for any side effects, such as unusual allergic reactions, and notify me immediately if they occur. - Have a urine culture and sensitivity test done promptly as directed. - Continue with routine health maintenance and book necessary lab tests when feasible. - Follow up on gastrointestinal referral for colon screening as it is due. [facility] Medical History Hypersomnia Snoring Deviated nasal septum, congenital Depression Surgical History History of knee surgery History of tubal ligation History of section Family History Father Unknown family medical history Mother No problems noted. Maternal Grandmother HTN (hypertension) Diabetes mellitus Son No problems noted. Daughter No problems noted. 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 1. Little interest or pleasure in doing things: not at all 2. Feeling down, depressed, or hopeless: not at all 3. Trouble falling or staying asleep, or sleeping too much: not at all 4. Feeling tired or having little energy: several days 5. Poor appetite or overeating: not at all 6. Feeling bad about yourself - or that you are a failure or have let yourself or your family down: not at all 7. Trouble concentrating on things, such as reading the newspaper or watching television: not at all 8. Moving or speaking so slowly that other people could have noticed. Or the opposite - being so fidgety or restless that you have been moving around a lot more than usual: not at all 9. Thoughts that you would be better off or of hurting yourself in some way: not at all Total score: 1 Depression Screening Interpretation: Negative Depression Screening Done: Yes 69056 - PHQ-9 Billing: Yes Source: Developed by Drs. Stef Cadena, Aaliyah Poe, Scott Santoyo and colleagues, with an educational hermes from [employer]. Thrive Questionnaire Date Thrive assessed: 10/01/24 I am a: Patient What is your living situation today?: I have a steady place to live Within the past 12 months, did the food you bought not last and you didn't have the money to get more?: Never true Within the past 12 months, did you worry whether your food would run out before you got money to buy more?: Never true Do you have trouble paying for medicines?: No Do you have trouble getting transportation to medical appointments?: No Do you have trouble paying your heating and electricity bill?: No Do you have trouble taking care of your child, family member or friend?: No Do you have trouble with day-to-day activities such as bathing, preparing meals, shopping, managing finances, etc.?: No Are you currently unemployed and looking for a job?: No Are you interested in more education?: No Please select the resources that you would like help with: None Currently or been in a relationship where the following occur: No concerns reported THRIVE Score: 0 AUDIT C Alcohol Use Questionnaire (AUDIT-C) 1. How often do you have a drink containing alcohol?: Never 3. How often do you have six or more drinks on one occasion?: Never Total Score: 0 Score Reviewed/Action Taken: Yes MAYDA-7 AMB Questionnaire MAYDA-7 Date MAYDA - 7 assessed: 10/01/24 Feeling nervous, anxious, or on edge: 0 = Not at all Not being able to stop or control worryin = Not at all Worrying too much about different things: 0 = Not at all Trouble relaxin = Not at all Being so restless that it is hard to sit still: 0 = Not at all Becoming easily annoyed or irritable: 0 = Not at all Feeling afraid as if something awful might happen: 0 = Not at all Total MAYDA-7 score (0-4 normal; 5-9 mild; 10-14 moderate; 15-21 severe): 0 Source: Developed by Drs. Stef Cadena, Aaliyah Poe, Scott Santoyo and colleagues, with an educational hermes from [employer]. MAYDA-7 Assessment Billing MAYDA-7 Assessment Tool: MAYDA-7 Assessment 94441 Physical exam (Primary Care) Vital Signs: Last Vital Signs Temp 97.9 F 10/01/24 10:57 Pulse 71 10/01/24 10:57 BP 130/80 10/01/24 10:57 Pulse Ox 99 10/01/24 10:57 BMI result Body Mass Index 26.0 Tobacco/Smoking Status: Tobacco use Status Tobacco use date assessed 10/01/24 10/01/24 10:59 Patient Tobacco Use Status Never used Tobacco 10/01/24 10:59 e-Cigarette/Vaping Use Never Used 10/01/24 10:59 PHQ-9: PHQ-9 Score PHQ-9: Total score 1 10/01/24 10:59 Depression Screening Interpretation: Negative Thrive Assessment: Date of Thrive Assessment Date Thrive assessed 10/01/24 10/01/24 10:59 Currently or been in a relationship where the following occur: No concerns reported Results AMB Urinalysis, Automated UA Leukoctes 500 Warren/uL Last Edit by Hussein Spence CMA on 10/01/24 11:37 UA Nitrite Negative Last Edit by Hussein Spence CMA on 10/01/24 11:37 UA Urobilinogen 0.2 mg/dL Last Edit by Hussein Spence CMA on 10/01/24 11:37 UA Protein 0 mg/dL Last Edit by Hussein Spence CMA on 10/01/24 11:37 UA pH 6.5 Last Edit by Hussein Spence CMA on 10/01/24 11:37 UA Blood 10 Drake/uL Last Edit by Hussein Spence CMA on 10/01/24 11:37 UA Specific [place] 1.005 Last Edit by Hussein Spence CMA on 10/01/24 11:37 UA Ketone Negative Last Edit by Hussein Spence CMA on 10/01/24 11:37 UA Bilirubin 0 mg/dL Last Edit by Hussein Spence CMA on 10/01/24 11:37 UA Glucose 0 mg/dL Last Edit by Hussein Spence CMA on 10/01/24 11:37 Coding Level of Care Code Est Pt Prev Care 40-64y(15842) Diagnoses Physical exam Z00.00 Urinary tract infection N39.0 Additional Codes MAYDA-7 Assessment Billing - MAYDA-7 Assessment Tool: MAYDA-7 Assessment 32838 ([id number]) PHQ-9 - 90320 - PHQ-9 Billing: Yes ([id number]) Assessment & Plan Assessment & Plan (1) Physical exam: Code(s): Z00.00 - Encounter for general adult medical examination without abnormal findings Category: Medical (2) Urinary tract infection: Code(s): N39.0 - Urinary tract infection, site not specified Category: Medical Plan . Orders: Orders Complete Blood Count Auto Diff Today Z00.00 - Encounter for general adult medical examination without abnormal findings Comprehensive [place]. Panel Fast Today Z00.00 - Encounter for general adult medical examination without abnormal findings TSH reflex Free T4 Today Z00.00 - Encounter for general adult medical examination without abnormal findings UA CC w/rflx Micro + Cult Today Z00.00 - Encounter for general adult medical examination without abnormal findings Lipid Panel Today Z00.00 - Encounter for general adult medical examination without abnormal findings Urine Culture Today N39.0 - Urinary tract infection, site not specified AMB Urinalysis Automated Today Z13.9 - Encounter for screening, unspecified Medications: New ciprofloxacin HCl 250 mg PO BID 3 days 6 tabs 0RF
--- OUTSIDE RECORDS SUMMARY | 2024-10-01 12:54 | XMS_ITS ---
Author Organization [facility] Address [address] [place] [address] Care Team Providers Care [facility] Manager Name Role Phone Molina Shah Primary Care Provider Unav ailable Black, Fabby Unavailable [phone] Allergies Allergen (clinical drug ingredient) Drug/Non Drug Allergy documented on EMR Reaction Allergy Type Onset Date Status gentamicin Gentamicin Unknown Drug Allergy Activ e REASON FOR VISIT Skin Problem, Fungal Nails Medications Medication SIG (Take, Route, Frequency, Duration) Notes Start Date End Date Status Ammonium Lactate 12 % 1 application to a ffected area Externally Twice a day to dry areas of skin on feet for 30 days 09/09/2024 Active Wellbutrin Active Vitamin D3 Active Ciclopirox Olamine 0.77 % 1 application Externally Twice a day to skin of feet including between the toes for 30 days Active Terbinafine HCl 250 MG 1 tablet Orally O nce a day for 7 days days then stop for 3 weeks repeat cycle for 90 days 07/31/2024 Active Social History Tobacco Use: Social History [...] Negative Vital Signs Height 5ft 7in in 09/09/2024 Weight 170 lbs 09/09/2024 BMI 26.62 kg/m2 09/09/2024 Blood pressure systolic 120 mm Hg 09/09/19 25 Blood pressure diastolic 70 mm Hg 025 Procedures Procedure Date Ordered Date Performed Result Body Sit e 22350-HWIAUPW NAIL, 6 OR MORE 09/09/2024 N/A Encounters Encounter Location Date Provider Diagnosis [facility] [address] [place] [address] 09/09/2024 Fabby Singh Pain in right toe(s) M79.674 ; Onychomycosis B35.1 ; Pain in left toe(s) M79.675 and Xerosis of skin L85.3 Assessments Encounter Date Diagnosis (ICD Code) Assessment Notes Treatment Notes Treatment Clinical Notes Section Notes 09/09/2024 Pain in right toe(s) (ICD-10 - M79.674) r 09/09/2024 Onychomycosis (ICD-10 - B35.1) r 09/09/2024 Pain in left toe(s) (ICD-10 - M79.675) r 09/09/2024 Xerosis of skin (ICD-10 - L85.3) r 09/09/2024 Other r Plan Of Treatment Medication Medication Name Sig Start Date Stop Date Notes Ammonium Lactate 12 % 1 application to a ffected area Externally Twice a day to dry areas of skin on feet for 30 days 09/09/2024 Pending Test Test Name Order Date [id number] NAIL, 6 OR MORE 09/09/2024 Next Appt Details Follow Up: 3 Months, Reason: Provider Name:Fabby Singh , 12/11/2024 12:15:00 PM, [address] [facility], [place], [address], Procedure Notes * Category Sub-Category Detail Notes Debride Nail 6-10 Nail debridement Due to the cl inical pathology outlined in the exam findings, performance of this nail treatment is medically necessary as its management by an unskilled/untrained nonprofessional would put this patients foot and overall health at risk. Therefore, debridement to affected nail(s), as described in exam (TA, T1, T2, T3, T4, T5, T6, T7, T8, T9, ___ ), was performed exclusively by the physician of record to reduce/remove overall nail length, girth, thickness, subungual debris, and necrotic tissue, by manual and/or electrical means through the use of a nail nipper and/or dremel-type machine grinder, to a more viable healthy nail plate or bed tissue 6-10 nails in total. Silver nitrate was used for any petechial bleeding as necessary. Definitive antifungal treatment options, both pharmaceutical and surgical, have been reviewed and discussed with the patient. The patient solely prefers the use of intermittent/as needed professional debridement services for their nail condition and understands the need for additional periodic treatments to maintain effectiveness in symptomatic relief - 59252 Patient chooses to cont, oral AF navdeep atment Progress Notes * Inge TRAMMELL MDOB:[birth year] (44 yo F)Acc No.[id number]:09/09/2024 Progress Notes Patient:?Nuha TRAMMELLique Prakash Provider:?Fabby Singh DPM :1980???Age:44 Y???Sex:Female D ate:09/09/2024 Address:[address] [place] [address] Pcp:EVERARDO Back Subjective: * Chief Complaints: * ???Skin ProblemFungal Nails * HPI: ???Painful Nails:?Pt States Last PCP Visit:?Date:?07/13/2024 ?Nature:?aching, tender, discolored, thick.?Location:?, Both feet.?Duration:?, several years.?Course:?, unchanged.?Aggravated by:?shoegear causing difficulty standing/walking.?Treatments:?Denies any adverse side effects to medication, Pulse Dose PO Antifungal Treatment, (i.e. rash, hives, taste/GI disturbance, yellow skin/eye discoloration, discolored stools, or any other unusual bodily complaints) started medication 07/2024.?Skin problems:?Nature:?, dryness.?Location:?B/L .?Duration:?several days.?Course:?, worse.? * ROS:?General/Constitutional:?Nausea?denies.?Vomiting?denies.?Hunger Thirst?denies.?Loss appetite?denies.?Chills?denies.?Fatigue?denies.?Fever?denies.?Night Sweats?denies.?Unexplained weight loss?denies.?Unexplained [...] Medical History:? * Surgical History:?knee surge ry -Section 09/04/2004 * Hospitalization/Major Diagno stic Procedure:?Denies Past [...] walking, stationary bike. ?Marital status: Single. 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 ???Drug/Alcohol:?AUDIT-C (Standard)?Did you have a drink containing alcohol in the past year??No ?Points?0 ?Interpretation?Negative * Medications:?TakingWellbutri n Vitamin D3 Ciclopirox Olamine 0.77 % Cream 1 application Externally Twice a day to skin of feet including between the toes Terbinafine HCl 250 MG Tablet 1 tablet Orally Once a day for 7 days days then stop for 3 weeks repeat cycle Medication List reviewed and reconciled with the patientTaking Wellbutrin Taking Vitamin D3 Taking Ciclopirox Olamine 0.77 % Cream 1 application Externally Twice a day to skin of feet including between the toes Taking Terbinafine HCl 250 MG Tablet 1 tablet Orally Once a day for 7 days days then stop for 3 weeks repeat cycle Medication List reviewed and reconciled with the patient * Allergies:?Gentamicinyes[All ergies Verified] Objective: * Vitals:?Ht: 5ft 7in, Wt:170, BMI:26.62, Shoe size: 8.5, BP:120/70mm Hg, Ht-cm: 170.18 cm, Wt-k.11 kg. * Examination: ???General Examination: ?GENERAL APPEARANCE:?Reveals a pleasant, alert, well nourished, well- developed, well hydrated individual, who demonstrates proper attention to hygiene/body habitus, and is in no acute distress, Pt serves as own historian for office visit today.?ORIENTED:?person, place, and time.?Nails: ?NAILS are:?Elongated, overgrown, dystrophic, lytic, greater than 3mm thick, discolored and friable with crumbly malodorous subungual debris, with pain on palpation ,, TA, T1, T2, T3, T4, T5, T6, T7, T8, T9.?Dermatologic: ?SKIN FINDINGS:?Skin shows sign(s) of, dryness, scaling, in a stocking fashion, no fissure(s) present, B/L.?Vascular: ?DP PULSES [...] Assessment: 1.?Pain in right toe(s) - M7 9.674???2.?Pain in left toe(s) - M79.675???3.?Onychomycosis - B35.1 (Primary)???Specify :Chronic problem, Worse (4) Rx Management (4)???4.?Xerosis of skin - L85.3???Specify :Rx Management (4) Acute problem, Uncomplicated (3)??? r Plan: * Treatment: 2.?Xerosis of skin? Start Ammonium Lactate Cream, 12 %, 1 application to affected area, Externally, Twice a day to dry areas of skin on feet, 30 days, 140, Refills 2.?? * Procedures:?Debride Nail 6-10:?Nail debridement?Due to the clinical pathology outlined in the exam findings, performance of this nail treatment is medically necessary as its management by an unskilled/untrained nonprofessional would put this patients foot and overall health at risk. Therefore, debridement to affected nail(s), as described in exam (TA, T1, T2, T3, T4, T5, T6, T7, T8, T9, ___ ), was performed exclusively by the physician of record to reduce/remove overall nail length, girth, thickness, subungual debris, and necrotic tissue, by manual and/or electrical means through the use of a nail nipper and/or dremel-type machine grinder, to a more viable healthy nail plate or bed tissue 6- 10 nails in total. Silver nitrate was used for any petechial bleeding as necessary. Definitive antifungal treatment options, both pharmaceutical and surgical, have been reviewed and discussed with the patient. The patient solely prefers the use of intermittent/as needed professional debridement services for their nail condition and understands the need for additional periodic treatments to maintain effectiveness in symptomatic relief - 79478.?Patient chooses ?to cont, oral AF treatment.? * Procedure Codes:?11072 DEBRI DE NAIL, 6 OR MORE, Modifiers: XS * Preventive Medicine:? ??Counseling:?Discussion:?-13: Office or other outpatient visit for the evaluation and management of an established patient, which required a medically appropriate history and/or examination and LOW level of DECISION MAKING for: 1 STABLE ACUTE UNCOMPLICATED PROBLEM, 2 OR MORE MINOR PROBLEMS, OR 1 STABLE CHRONIC PROBLEM, THAT POSE(S) A LOW RISK FOR MORBIDITY/MORTALITY. The visit on the day of the [...] have encouraged the patient to call the office.?Xerosis:?The patient was counseled on the diagnosis, potential etiologies, and treatment options for their skin condition. We discussed the risks and benefits of each option from performing no treatment, to utilizing OTC topical skin creams/ointments, to utilizing prescription topical creams/ointments, to utilizing customized compounded topical medications and use of nocturnal occlusion with any/all previously detailed therapies. We discussed the advantages and disadvantages of each possible treatment and importance for adherence to all the recommended therapies for optimum success and avoid potential complications such as open sore/infection/possible hospitalization. We discussed the potential effectiveness of each topical preparation as well as each ones possible side effects and/or patient medication interactions. Patient questions re: use, dosage, successful outcomes, and application consistency were reviewed and the patient verbalized that all answers were clearly understood. The patient has decided to apply Rx skin creams to their feet save the interspaces while paying special attention to the heels. Such was sent to their pharmacy at the time of visit.? ??Screening/Special Tests:?Fall Risk?Screening:?No falls in the past year ?FALLS: Screening for Future Fall Risk?Have you had any falls with injury in the past year??No * Follow Up:?3 Months * Images: * Sign off status: Completed true * Provider:?Fabby Singh DPM Date:?2024 Generated for Neena livingston/Dominguez/Bereitting on:?10/01/2024 12:54 PM EDT History and Physical Notes * HPI (History of Present Illness) Category Sub-Category Detail Notes Category Not es Painful Nails Aggravated by: shoegear causing difficulty standing/walking Onset/Cause: Course: , unchanged Duration: , several years Location: , Both feet Nature: aching, tender, disc olored, thick Treatments: Denies any adverse s steph effects to medication, Pulse Dose PO Antifungal Treatment, (i.e. rash, hives, taste/GI disturbance, yellow skin/eye discoloration, discolored stools, or any other unusual bodily complaints) started medication 07/2024 Pt States Last PCP Visit: Date:: 07/13/2024 Skin problems Nature: , dryness Location: B/L Duration: several days Course: , worse Examination Category Sub-Category Detail Notes Category Not es Neurological SENSORY: Neurological exa m reveals intact sensorium, pain sensation normal, vibration sensation intact, pinprick sensation is normal in the lower extremities, Pt denies, anesthesia, burning, paresthesia, tingling, B/L Dermatologic SKIN FINDINGS: Skin shows sign( s) of, dryness, scaling, in a stocking fashion, no fissure(s) present, B/L General Examination [...] malodorous subungual debris, with pain on palpation ,, TA, T1, T2, T3, T4, T5, T6, T7, T8, T9
--- OUTSIDE RECORDS SUMMARY | 2024-10-01 12:54 | XMS_ITS | Patient Health Record ---
[facility] Organization [facility] Address [address] [place] [address] Care Team Providers Care Bilingual Instructor Name Role Phone Molina Shah Primary Care Provider Unav ailable Black, Fabby Unavailable [phone] Allergies Allergen (clinical drug ingredient) Drug/Non Drug [...] Signs Blood pressure diastolic 70 mm Hg 09/09/2024 Height 5ft 7in in 09/09/2024 Blood pressure systolic 120 mm Hg 09/09/2024 Weight 170 lbs 09/09/2024 BMI 26.62 kg/m2 09/09/2024 Procedures Procedure Date Ordered Date Performed Result Body Sit e 83382-LZKCZJH NAIL, 6 OR MORE 09/09/2024 N/A Encounters Encounter Location Date Provider Diagnosis [address] [address] 07/28/2024 Fabby Black Pain in right toe(s) M79.674 ; Onychomycosis B35.1 ; Pain in left toe(s) M79.675 and Tinea pedis of both feet B35.[address] [address] 09/09/2024 Fabby Black Pain in right toe(s) M79.674 ; Onychomycosis B35.1 ; Pain in left toe(s) M79.675 and Xerosis of skin L85.[address] [facility] [address] 07/01/2024 [facility] [address] 07/28/2024 Fabby Black Assessments Encounter Date Diagnosis (ICD Code) Assessment Notes Treatment Notes Treatment Clinical Notes Section Notes 07/28/2024 Pain in right toe(s) (ICD-10 - M79.674) 07/28/2024 Onychomycosis (ICD-10 - B35.1) Patient Educated with: FUNGUS NAIL INFECTIONS.pdf (FUNGUS NAIL INFECTIONS.pdf ) 09/09/2024 Pain in right toe(s) (ICD-10 - M79.674) r 09/09/2024 Onychomycosis (ICD-10 - B35.1) r 07/28/2024 Pain in left toe(s) (ICD-10 - M79.675) 09/09/2024 Pain in left toe(s) (ICD-10 - M79.675) r 07/28/2024 Tinea pedis of both feet (ICD-10 - B35.3) Patient Educated with: ATHELETE .pdf (ATHELETE .pdf) 09/09/2024 Xerosis of skin (ICD-10 - L85.3) r 09/09/2024 Other r Plan Of Treatment Pending Test Test Name Order Date *Liver Function Test (LFT) 07/28/2024 79780-[id number] NAIL, 6 OR MORE 09/09/2024 Nail Panel 07/28/2024 Next Appt Details Provider Name:Fabby Singh , 12/11/2024 12:15:00 PM, [address] [facility], [place], [address], Insurance Providers Payer Name Payer Address Payer Phone Subscriber Number Group Number Insured Name Patient Relationship to Insured Coverage Start Date Coverage End Date [facility] Adv [address] [place] [id number] Inge Trammell Self - patient is the insured Medical (General) History Medical History History ICD Code Anxiety Back,Hip,and Knee pain covid-19 Depression Fibromyalgia Headaches/Migraines Reynauds syndrome Sciatica sinusitis Chicken pox Joint implants/screws Surgical History Surgery Date(Month/Year) knee surgery 11/2021 09/04/2004
--- OUTSIDE RECORDS SUMMARY | 2024-10-01 12:54 | XMS_ITS ---
Author Organization [facility] Address [address] [place] [address] Care Team Providers Care Shape Hand Name Role Phone Molina Shah Primary Care Provider Unav ailable Black, Fabby Unavailable [phone] Allergies Allergen (clinical drug ingredient) Drug/Non Drug [...] 025 Encounters Encounter Location Date Provider [facility] [address] 07/28/2024 Fabby Black Pain in right toe(s) [...] Up: 4-6 Weeks, Reason : Provider Name:Fabby Jayden Singh , 12/11/2024 12:15:00 PM, [address] [place] [address], [address], Progress Notes * Inge TRAMMELL MDOB:[birth year] (44 yo F)Acc No.[id number]:07/28/2024 Progress Notes Patient:?Inge TRAMMELL Provider:?Fabby Singh DPM :1980???Age:44 Y???Sex:Female D ate:07/28/2024 Address:[address] [place], [place] [address] Pcp:EVERARDO Back Subjective: * Chief Complaints: * [...] walking, stationary bike. ?Marital status: Single. 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 ???Drug/Alcohol:?AUDIT-C (Standard)?Did you have a drink containing [...] * Images: * Sign off status: Completed Addendum: * ? true * Provider:?Fabby Singh DPM Date:?2024 Generated for Gagei yara/Dominguez/eTransmitting on:?10/01/2024 12:54 PM EDT History and Physical [...]
--- OUTSIDE RECORDS SUMMARY | 2024-10-01 12:54 | XMS_ITS ---
Author Organization [facility] Address [address] [place] [address] Care Team Providers Care Freelance Digital Project Manager Name Role Phone Molina Shah Primary Care Provider Unav ailable Francisco, Fabby Unavailable [phone] REASON FOR VISIT BAKO Medications Medication SIG (Take, Route, Fr equency, Duration) Notes Start Date End Date Status Terbinafine HCl 250 MG 1 tablet Orally O nce a day for 7 days days then stop for 3 weeks repeat cycle for 90 days 07/31/2024 Active Encounters Encounter Location Date Provider Diagnosis [address] [address] 07/28/2024 Fabby Singh Plan Of Treatment Medication Medication Name Sig Start Date Stop Date Notes Terbinafine HCl 250 MG 1 tablet Orally O nce a day for 7 days days then stop for 3 weeks repeat cycle for 90 days 07/31/2024 Next Appt Details Provider Name:Fabby Singh , 12/11/2024 12:15:00 PM, [address] [facility], [place], [address], Progress Notes * Inge TRAMMELL MDOB:[birth year] (44 yo F)Acc No.[id number]:07/28/2024 Patient:?Inge TRAMMELL :1980???Age:44 Y???Sex:Female Address:[address] [place] [address], [address] * Refills? Start Terbinafine HCl Tablet, 250 MG, Orally, 21, 1 tablet, Once a day for 7 days days then stop for 3 weeks repeat cycle, 90 days, Refills=3 * true * Date:? Generated for Neena livingston/Dominguez/Nika on:?10/01/2024 12:54 PM EDT
== END 2024-10-01 11:42 | disposition home or self-care (01) ==
LOC: HO.HMCC 10:57
PROVIDERS: PCP Nurse Practitioner Family; Visit Provider Nurse Practitioner Family
DX: Z00.00 Encounter for general adult medical examination without abnormal findings (principal); N39.0 Urinary tract infection, site not specified; Z13.9 Encounter for screening, unspecified

== ENCOUNTER 2024-10-16 07:26 | Outpatient (REF) | payer OTHER, SELFPAY ==
--- OUTSIDE RECORDS SUMMARY | 2024-10-16 07:28 | XMS_ITS | Patient Health Record ---
Author Organization [facility] Address [address] [place] [address] Care Team Providers Care Printed Circuit Boards Stripper Etcher Name Role Phone Molina Shah Primary Care Provider Unav ailable Black, Fabby Unavailable [phone] Allergies Allergen (clinical drug ingredient) Drug/Non Drug [...] Ordered Date Performed Result Body Sit e 45249-CCXQTIJ NAIL, 6 OR MORE 09/09/2024 N/A Encounters Encounter Location Date Provider Diagnosis [address] [address] 07/28/2024 Fabby Black Pain in right toe(s) M79.674 ; Onychomycosis B35.1 ; Pain in left toe(s) M79.675 and Tinea pedis of both feet B35.[address] [address] 09/09/2024 Fabby Black Pain in right toe(s) M79.674 ; Onychomycosis B35.1 ; Pain in left toe(s) M79.675 and Xerosis of skin L85.3 [facility] [address] 07/01/2024 [facility] [address] 07/28/2024 Fabby Black Assessments Encounter Date Diagnosis [...] Order Date *Liver Function Test (LFT) 07/28/2024 [id number]-[id number] NAIL, 6 OR MORE 09/09/2024 Nail Panel 07/28/2024 Next Appt Details Provider Name:Fabby Singh , 10/16/2024 10:00:00 AM, [address], [place], [address], Provider Name:Fabby Singh , 12/11/2024 12:15:00 PM, [address], [place], [address], Insurance Providers Payer Name Payer Address Payer Phone Subscriber Number Group Number Insured Name Patient Relationship to Insured Coverage Start Date Coverage End Date [facility] Adv [address] [place] [id number] Inge Trammell Self - patient is the insured Medical (General) History Medical History History ICD Code Anxiety Back,Hip,and Knee pain covid-19 Depression Fibromyalgia Headaches/Migraines Reynauds syndrome Sciatica sinusitis Chicken pox Joint implants/screws Surgical History Surgery Date(Month/Year) knee surgery 11/2021 09/04/2004
--- OUTSIDE RECORDS SUMMARY | 2024-10-16 07:28 | XMS_ITS | Data Portability ---
Author Organization [place] - [facility] Address [address] [place] [address] Assessment Encounter Date Assessment Date Assessment LastModified [...] tolerated. Further follow-up with me as needed Not available 12/13/2023 13:27:29 Plan of Treatment Reminders Order Date Submit Date Provider Last Modified By Organization Details Last Modified Time Details Appointments RECHECK 10 2024 09:00A Prakash Sepulveda MD Not available Not available Not available Lab ESR (erythr ocyte sedimen tation rate), blood 2023 MIKY [facility] (Centralized Electronic Ordering - All Locations), Patient Can Go To The Location Of Their Choice, [address] 05/27/2024 06:05:29 C reactiv e protein , QN, serum or plasma 2023 024 MIKY [facility] (Centralized Electronic Ordering - All Locations), Patient Can Go To The Location Of Their Choice, [address] 05/27/2024 06:05:30 CBC w/ auto diff 2023 024 MIKY [facility] (Centralized Electronic Ordering - All Locations), Patient Can Go To The Location Of Their Choice, [address] 05/27/2024 06:05:27 Referral None recorde d. Procedures None recorde d. Surgeries None recorde d. Imaging XR, knee, 3 view - rm 102 - ltkr 2023 024 [facility] [address], [address], [place], [address], 06/15/2024 10:03:04 XR, knee, 3 view - 204 LTKR annual AB 2023 024 [email or web address] [facility], [address], [address], [place], [address], 12/15/2023 10:51:21 Medication Orders Celebre x 200 mg capsule 2023 024 [id number], [address] [place], [id number], 05/26/2024 10:41:15 Patient TargetsNo targets recorded. Patient InstructionsNo instructions recorded. Reason for Referral None Reported. Results Created Date Observation Date Name Description Value Unit Range Abnormal Flag Note LastModifiedBy Organization Detail LastModifiedTime 05/26/20 24 05/26/2024 CBC WITH DIFFE RENTI AL/PL ATELE T WBC 7.5 x10e3 /uL 3.4-10 .8 normal Not Available [facility] ([facility]) [address] [place], [address], 05/27/2024 06:05:27 05/26/20 24 05/26/2024 CBC WITH DIFFE RENTI AL/PL ATELE T RBC 4.70 x10e6 /uL 3.77-5 .28 normal Not Available [facility] ([facility]) [address] [place], [address], 05/27/2024 06:05:27 05/26/20 24 05/26/2024 CBC WITH DIFFE RENTI AL/PL ATELE T hemoglobin 13.8 g/dL 11.1-1 5.9 normal Not Available [facility] ([facility]) [address] [place], [address], 05/27/2024 06:05:27 05/26/20 24 05/26/2024 CBC WITH DIFFE RENTI AL/PL ATELE T hematocrit 41.6 % 34.0-4 6.6 normal Not Available [facility] ([facility]) [address] [place], [address], 05/27/2024 06:05:27 05/26/20 24 05/26/2024 CBC WITH DIFFE RENTI AL/PL ATELE T MCV 89 fL 79-97 normal Not Available [facility] ([facility]) [address] [place], [address], 05/27/2024 06:05:27 05/26/20 24 05/26/2024 CBC WITH DIFFE RENTI AL/PL ATELE T MCH 29.4 pg 26.6-3 3.0 normal Not Available [facility] ([facility]) [address] [place], [address], 05/27/2024 06:05:27 05/26/20 24 05/26/2024 CBC WITH DIFFE RENTI AL/PL ATELE T MCHC 33.2 g/dL 31.5-3 5.7 normal Not Available [facility] ([facility]) [address] [place], [address], 05/27/2024 06:05:27 05/26/20 24 05/26/2024 CBC WITH DIFFE RENTI AL/PL ATELE T RDW 13.2 % 11.7-1 5.4 Not Available [facility] ([facility]) [address] [place], [address], 05/27/2024 06:05:27 05/26/20 24 05/26/2024 CBC WITH DIFFE RENTI AL/PL ATELE T platelets 391 x10e3 /uL 150-45 0 normal Not Available [facility] ([facility]) [address] [place], [address], 05/27/2024 06:05:27 05/26/20 24 05/26/2024 CBC WITH DIFFE RENTI AL/PL ATELE T neutrophils 58 % not estab. normal Not Available [facility] ([facility]) [address] [facility], [place], [address], 05/27/2024 06:05:27 05/26/20 24 05/26/2024 CBC WITH DIFFE RENTI AL/PL ATELE T lymphs 29 % not estab. normal Not Available [facility] ([facility]) [address] [facility], [place], [address], 05/27/2024 06:05:27 05/26/20 24 05/26/2024 CBC WITH DIFFE RENTI AL/PL ATELE T monocytes 8 % not estab. normal Not Available [facility] ([facility]) [address] [facility], [place], [address], 05/27/2024 06:05:27 05/26/20 24 05/26/2024 CBC WITH DIFFE RENTI AL/PL ATELE T eos 3 % not estab. normal Not Available [facility] ([facility]) [address] [place], [address], 05/27/2024 06:05:27 05/26/20 24 05/26/2024 CBC WITH DIFFE RENTI AL/PL ATELE T basos 1 % not estab. normal Not Available [facility] ([facility]) [address] [place], [address], 05/27/2024 06:05:27 05/26/20 24 05/26/2024 CBC WITH DIFFE RENTI AL/PL ATELE T immature cells JUNIOR PROJECT MANAGER Not Available [facility] ([facility]) [address] [place], [address], 05/27/2024 06:05:27 05/26/20 24 05/26/2024 CBC WITH DIFFE RENTI AL/PL ATELE T neutrophils (absolute) 4.4 x10e3 /uL 1.4-7. 0 normal Not Available [facility] ([facility]) [address] [place], [address], 05/27/2024 06:05:27 05/26/20 24 05/26/2024 CBC WITH DIFFE RENTI AL/PL ATELE T lymphs (absolute) 2.2 x10e3 /uL 0.7-3. 1 normal Not Available [facility] ([facility]) [address] [place], [address], 05/27/2024 06:05:27 05/26/20 24 05/26/2024 CBC WITH DIFFE RENTI AL/PL ATELE T monocytes(ab solute) 0.6 x10e3 /uL 0.1-0. 9 normal Not Available [facility] ([facility]) [address] [place], [address], 05/27/2024 06:05:27 05/26/20 24 05/26/2024 CBC WITH DIFFE RENTI AL/PL ATELE T eos (absolute) 0.2 x10e3 /uL 0.0-0. 4 normal Not Available [facility] ([facility]) [address] [place], [address], 05/27/2024 06:05:27 05/26/20 24 05/26/2024 CBC WITH DIFFE RENTI AL/PL ATELE T baso (absolute) 0.0 x10e3 /uL 0.0-0. 2 normal Not Available [facility] ([facility]) [address] [place], [address], 05/27/2024 06:05:27 05/26/20 24 05/26/2024 CBC WITH DIFFE RENTI AL/PL ATELE T immature granulocytes 1 % not estab. Not Available [facility] ([facility]) [address] [facility], [place], [address], 05/27/2024 06:05:27 05/26/20 24 05/26/2024 CBC WITH DIFFE RENTI AL/PL ATELE T immature grans (abs) 0.0 x10e3 /uL 0.0-0. 1 Not Available [facility] ([facility]) [address] [facility], [place], [address], 05/27/2024 06:05:27 05/26/20 24 05/26/2024 CBC WITH DIFFE RENTI AL/PL ATELE T NRBC JUNIOR PROJECT MANAGER Not Available [facility] ([facility]) [address] [facility], [place], [address], 05/27/2024 06:05:27 05/26/20 24 05/26/2024 CBC WITH DIFFE RENTI AL/PL ATELE T hematology comments: JUNIOR PROJECT MANAGER Not Available [facility] ([facility]) [address] [facility], [place], [address], 05/27/2024 06:05:27 05/26/20 24 05/27/2024 SEDIM ENTAT ION RATE- WESTE RGREN sedimentatio n rate-westerg reji 15 mm/HR 0-32 normal Not Available [facility] ([facility]) [address] [facility], [place], [address], 05/27/2024 06:05:28 05/26/20 24 05/27/2024 C-FLACA CTIVE PROTE IN, QUANT C-reactive protein, quant 3 mg/L 0-10 normal Not Available [facility] ([facility]) [address] [facility], [place], [address], 05/27/2024 06:05:30 03/13/20 24 10/11/2022 imagi ng/di [...] a4ajBk vP9nXo QUaueC m3YtLR FvZlgJ JJ8mAn HZtai3 5d0099 AC0Kqa HWCUae gKiQtr MwF INTERFACE [facility] [address], [place], [address], 05/26/2024 10:15:46 05/26/20 24 05/26/2024 XR, knee, 3 view http:/ [email or web address] ?Encry pted=s hAaTro YD8dLq bEUv6g %2BXZw aYqtaq 0bqfl% 2Fg9IQ a4ajBk vP9nXo QUaueC m3YtLR FvZlgJ JJ8mAn HZtai3 4b4741 AC0Kqa HWCUae gKiQtr MwF INTERFACE [facility] [address], [place], [address], 05/26/2024 10:15:49 Result Notes None recorded. Problems Name Problem SNOMED Code Status Onset Date Resolution Date Notes Provider Name and Address Organization Details Recorded Time No complaints 205022648 Active Status : 'A'; Not Available [facility] 4 09:20:24 History of left total knee replacemen t 0704873426361 105 Active 2023 Terry Sepulveda MD [address], [place], [address] , [facility] 4 13:27:27 Problem Notes None recorded. Procedures Surgical History None recorded. Imaging Results Imaging Date Name Status LastModified by Organiz ation Details LastModified Time 10/11/2022 imaging/diag nostic result completed Information not available 03/13/2024 05:15:18 11/06/2021 imaging/diag nostic result completed Information not available 03/13/2024 05:15:26 05/26/2024 XR, knee, 3 view completed INTERFACE [facility] [address], [place], [address], 05/26/2024 10:15:46 05/26/2024 XR, knee, 3 view completed INTERFACE [facility] [address], [place], [address], 05/26/2024 10:15:49 Procedure Notes None recorded. Medical [...] BY TOPICAL ROUTE 4 TIMES PER DAY 2024 active Not Available Not Available Not Avai lable cholecalcif lance (vitamin D3) 50 mcg (2,000 [...] Updated DateTime 12/13/2023 167.64 cm 28.9 kg/m2 71081.03 g JASMYN DIOR [place] - [facility] 12/13/2023 11:43:22 Date Recorded Body height Body mass index (BMI) Body weight Provider Name and Address Organization Details Last Updated DateTime 05/26/2024 167.64 cm 28.9 kg/m2 14310.03 g RAJNI IDA Carpenter [facility] 05/26/2024 10:05:36 Social History Question Answer Notes LastModified by Organizat ion Details LastModified Time Tobacco Smoking Status Never Smoker RAJNI GRECIA mariee [facility] 05/26/2024 10:06:38 What Is Your Level [...] SNOMED-CT Code Diagnosis ICD10 Code Diagnosis Note [id number] MD Berkley Altamirano [address] [place] [address] 12/13/2023 10:24:54 01/06/2024 13:15:25 History of left total knee replacement 7265968019 177713 Z96.779 [id number] DEANNE Mccormack [address] [place] [address] 05/26/2024 09:51:54 06/15/2024 10:03:04 History of left total knee replacement 1959252627 291061 Z96.652 Health Concerns Section Related Observation LastModified by Organization Detai ls LastModified Time None Recorded Concern Status LastModified by Organization Details LastModified Time None Recorded Advance Directives Directive None Recorded Payers Encounter Date Sequence Insurance Name Policy Number Policy Montero Covered Member ID Montero Member ID Guarantor Name 12/13/2023 1 [facility] - DOS ON OR AFTER 2022 - ONE CARE (MEDICARE REPLACEMENT/ADV ANTAGE - HMO) Inge Trammell [id number] Inge Trammell 05/26/2024 1 [facility] - DOS ON OR AFTER 2022 - ONE CARE (MEDICARE REPLACEMENT/ADV ANTAGE - HMO) Inge Trammell [id number] Inge Trammell Notes Date Note Type Note [...] the patient? s chart. Terry Sepulveda MD [address] [place] [address] [facility], [place], [address], [facility] 12/13/2023 13:27:42 05/26/2024 text/html I am seeing [...] were ordered, obtained and reviewed today at [facility] demonstrates status post patellofemoral joint arthroplasty. No [...] and agrees with the plan. Speech recognition operational risk analyst software was used to create portions of this document. An attempt at proofreading has been made to minimize errors. Please call for corrections. Edda Wilson PA-C [address] [facility] [address], [place], [address], [facility] 05/26/2024 12:13:45 OBGyn Episode No OBEpisode recorded.
--- OUTSIDE RECORDS SUMMARY | 2024-10-16 07:28 | XMS_ITS ---
Author Organization [facility] Address [address] [place] [address] Care Team Providers Care Chief Development Officer Name Role Phone Molina Shah Primary Care Provider Unav ailable Francisco, Fabby Unavailable [phone] REASON FOR VISIT BAKO Medications Medication SIG (Take, Route, Fr equency, Duration) Notes Start Date End Date Status Terbinafine HCl 250 MG 1 tablet Orally O nce a day for 7 days days then stop for 3 weeks repeat cycle for 90 days 07/31/2024 Active Encounters Encounter Location Date Provider Diagnosis [address] [address] 07/28/2024 Fabby Black Plan Of Treatment Medication Medication Name Sig Start Date Stop Date Notes Terbinafine HCl 250 MG 1 tablet Orally O nce a day for 7 days days then stop for 3 weeks repeat cycle for 90 days 07/31/2024 Next Appt Details Provider Name:Fabby Singh , 10/16/2024 10:00:00 AM, [address] [place], [address], Provider Name:Fabby Singh , 12/11/2024 12:15:00 PM, [address] [place], [address], Progress Notes * Inge TRAMMELL MDOB:[birth year] (44 yo F)Acc No.[id number]:07/28/2024 Patient:?Inge TRAMMELL :1980???Age:44 Y???Sex:Female Address:[address] [place] [address], [place] [address] * Refills? Start Terbinafine HCl Tablet, 250 MG, Orally, 21, 1 tablet, Once a day for 7 days days then stop for 3 weeks repeat cycle, 90 days, Refills=3 * true * Date:? Generated for Neena livingston/Dominguez/eTransmitting on:?10/16/2024 07:28 AM EDT
--- OUTSIDE RECORDS SUMMARY | 2024-10-16 07:28 | XMS_ITS ---
Author Organization [facility] Address [address] [place] [address] Care Team Providers Care Presser Hand Name Role Phone Molina Shah Primary Care Provider Unav ailable Black, Fabby Unavailable [phone] Allergies Allergen (clinical drug ingredient) Drug/Non Drug [...] Ordered Date Performed Result Body Sit e 74626-HOSHUPE NAIL, 6 OR MORE 09/09/2024 N/A Encounters Encounter Location Date Provider Diagnosis [facility] [place] [address] [place] [address] 09/09/2024 Fabby Singh Pain in right toe(s) [...] 09/09/2024 Pending Test Test Name Order Date 67321-[id number] NAIL, 6 OR MORE 09/09/2024 Next Appt Details Follow Up: 3 Months, Reason: Provider Name:Fabby Carpenter Francisco , 10/16/2024 10:00:00 AM, [address] [place], [address], Provider Name:Fabby Carpenter Francisco , 12/11/2024 12:15:00 PM, [address] [place], [address], Procedure Notes * Category Sub-Category Detail Notes [...] use of a nail nipper and/or dremel-type grinder set up operator gear tool, to a more viable healthy nail plate [...] to maintain effectiveness in symptomatic relief - 91488 Patient chooses to cont, oral AF navdeep atment Progress Notes * Inge TRAMMELL MDOB:[birth year] (44 yo F)Acc No.[id number]:09/09/2024 Progress Notes Patient:?Inge TRAMMELL M Provider:?Fabby Singh DPM :1980???Age:44 Y???Sex:Female D ate:09/09/2024 Address:[address] [place] [address] Pcp:EVERARDO Back Subjective: * Chief Complaints: * [...] walking, stationary bike. ?Marital status: Single. 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 ???Drug/Alcohol:?AUDIT-C (Standard)?Did you have a drink [...] use of a nail nipper and/or dremel-type grinder set up operator gear tool, to a more viable healthy nail plate [...] to maintain effectiveness in symptomatic relief - 31858.?Patient chooses ?to cont, oral AF treatment.? * Procedure Codes:?44707 DEBRI DE NAIL, 6 OR MORE, Modifiers: [...] Provider:?Fabby Singh DPM Date:?2024 Generated for Neena livingston/Dominguez/Nika on:?10/16/2024 07:27 AM EDT History and Physical Notes * HPI [...]
--- OUTSIDE RECORDS SUMMARY | 2024-10-16 07:28 | XMS_ITS ---
[facility] Organization [facility] Address [address] [place] [address] Care Team Providers Care Front Office Secretary Name Role Phone Molina Shah Primary Care Provider Unav ailable Fabby Singh Unavailable [phone] Encounters Encounter Location Date Provider Diagnosis [address] [address] 10/16/2024 Fabby Francisco Plan Of Treatment Next Appt Details Provider Name:Fabby A Francisco , 10/16/2024 10:00:00 AM, [address] [place] [address] [place], [address], Provider Name:Fabby Carpenter Francisco , 12/11/2024 12:15:00 PM, [address] [place] [address] [place], [address], Progress Notes * Inge TRAMMELL MDOB:[birth year] (44 yo F)Acc No.[id number]:10/16/2024 Progress Note Patient:?Inge TRAMMELL Provider:?Fabby Singh DPM :1980???Age:44 Y???Sex:Female D ate:10/16/2024 Address:[address] [place], [place] [id number] Pcp:EVERARDO Back Subjective: * Chief Complaints: * ??? * Medical History:? Objective: * Vitals:? Assessment: Plan: * Treatment: * Images: * The named appointment provid er may or may not be the originator of this progress note, and it is not deemed complete until electronically signed by the appointment provider. Sign off status: Pending * Provider:Jes Singh DPM Date:?2024 Generated for Neena livingston/Dominguez/Nika on:?10/16/2024 07:27 AM EDT
[2024-10-16 10:12] LABS: MANUAL DIFF FLAG NO
[2024-10-16 10:23] LABS: Basophils Percent Auto 0.5 % (0-2); Eosinophils Absolute Auto 0.3 X10*3/uL (0.0-0.4); Hematocrit 40.1 % (37.0-47.0); Hemoglobin 12.8 g/dl (12.0-16.0); Imm Gran Abs Auto 0.02 X10*3/uL (0.00-0.03); Imm Gran Pct Auto 0.3 % (0.0-0.4); Lymphocytes Absolute Auto 2.3 X10*3/uL (1.2-4.9); Lymphocytes Percent Auto 28.6 % (20-40); Mean Corpuscular HGB Conc 31.9 g/dl (31.0-35.0); Mean Corpuscular Hemoglobin 28.9 pg (27.0-33.0); Mean Corpuscular Volume 90.5 fL (80.0-98.0); Mean Platelet Volume 10.6 fL (9.4-12.3); Monocytes Absolute Auto 0.6 X10*3/uL (0.1-1.2); Monocytes Percent Auto 7.3 % (2-11); Neutrophils Absolute Auto 4.8 x10*3/uL (2.0-8.3); Neutrophils Percent Auto 59.3 % (45-73); Platelet Count 373 X10*3/uL (160-400); Red Blood Count 4.43 X10*6/uL (4.20-5.50); Red Cell Distribution Width 13.7 % (11.0-16.0)
[2024-10-16 10:36] LABS: Appearance Urine Turbid; Color Urine Yellow; Glucose Urine UA Negative (Negative); Leukocyte Esterase Urine Large (3+) (Negative); Nitrite Urine Negative (Negative); Specific Gravity - Urine 1.025 (1.005-1.025); UMIC TRIGGER UACC YES; Urine Blood Moderate (2+) (Negative); Urine Ketones Trace mg/dL (Negative); Urine Protein 30 (1+) mg/dL (Neg-Trace)
[2024-10-16 10:39] LABS: Alanine Aminotransferase 16 U/L (0-31); Albumin Level 4.1 g/dL (3.5-5.0); Alkaline Phosphatase 81 U/L (39-117); Anion Gap 10 (12-20); Aspartate Amino Transferase 25 U/L (5-31); Bilirubin Total 0.2 mg/dL (0.0-1.0); Blood Urea Nitrogen 15 mg/dL (9-16); Carbon Dioxide 26 mmol/L (22-29); Chloride 108 mmol/L (96-108); Cholesterol 150 mg/dL (<200); Estimated Glomerular Filt Rate > 60; Glucose Fasting 83 mg/dL (60-99); HDL Cholesterol 46 mg/dL (>40); LDL Cholesterol Calculated 87 mg/dL (<100); Potassium 3.9 mmol/L (3.3-5.1); Sodium 140 mmol/L (135-145); Total Protein 6.7 g/dL (6.5-8.0); Triglycerides 88 mg/dL (<150)
[2024-10-16 10:52] LABS: Bacteria Urine 3+ (None Seen); Hyaline Casts Urine 0-2 /LPF (0-2); Squamous Epithelial Cell Urine >20 /HPF (0-2); UACC Culture Trigger YES
[2024-10-16 11:00] LABS: TSH reflex Free T4 0.95 uIU/mL (0.32-4.0)
== END 2024-10-16 07:27 | disposition home or self-care (01) ==
LOC: HO.HMGCLDS 07:26
PROVIDERS: PCP Nurse Practitioner Family; Visit Provider Nurse Practitioner Family
DX: Z00.00 Encounter for general adult medical examination without abnormal findings (principal); N39.0 Urinary tract infection, site not specified; Z13.220 Encounter for screening for lipoid disorders; Z13.29 Encounter for screening for other suspected endocrine disorder; Z13.0 Encounter for screening for diseases of the blood and blood-forming organs and certain disorders involving the immune mechanism
CPT/HCPCS: 36415; 80053; 80061; 81001; 84443; 85025; 87086

== ENCOUNTER 2024-10-26 10:41 | Outpatient (REF) | payer OTHER, SELFPAY ==
--- OUTSIDE RECORDS SUMMARY | 2024-10-26 12:23 | XMS_ITS | Patient Health Record ---
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 Role Phone Molina Shah Primary Care Provider Unav ailable Black, Fabby Unavailable [phone] Allergies Allergen (clinical drug ingredient) Drug/Non Drug Allergy documented on EMR Reaction Allergy Type Onset Date Status gentamicin Gentamicin Unknown Drug Allergy Activ e Results Component Value Reference Range Notes X ray : Foot, right 3V Reviewed date:10/16/2024 10:25:49 AM Interpretation:See Examination above Performing Lab: Notes/Report: See Examination above Reason For Referral No Information Medications Medication SIG (Take, Route, Frequency, Duration) Notes Start Date End Date Status Wellbutrin Active Vitamin D3 Active Night Splint AFO - L1930 1 wear at rest for 30 days Active Ammonium Lactate 12 % 1 application to a ffected area Externally Twice a day to dry areas of skin on feet for 30 days 09/09/2024 Active Ciclopirox Olamine 0.77 % 1 application [...] ast year? No Points 0 Interpretation Negative Problems Problem Type SNOMED Code ICD Code Onset Dates Problem Status W/U Status Risk Notes Problem Acquired hammer toe of right foot (9253337235117045) Other hammer toe(s) (acquired), right foot (M20.41) Active confirmed Problem Plantar fasciitis of right foot (95277430040215920 ) Plantar fasciitis of right foot (M72.2) Active confirmed Problem Interstitial myositis (66909048) Interstitial myositis of right foot (M60.171) Active confirmed Problem Localized, primary osteoarthritis of the ankle and/or foot (278116948) Arthritis of joint of lesser toe, right (M19.071) Active confirmed Vital Signs Blood pressure diastolic 68 mm Hg 10/16/2024 Height 5ft 7in in 10/16/2024 Blood pressure systolic 124 mm Hg 10/16/2024 Weight 162 lbs 10/16/2024 BMI 25.37 kg/m2 10/16/2024 Procedures Procedure Date Ordered Date Performed Result Body Sit e 42029-KNBOZVH NAIL, 6 OR MORE 09/09/2024 N/A Encounters Encounter Location Date Provider Diagnosis [address] [address] 07/28/2024 Fabby Black Pain in right toe(s) M79.674 ; Onychomycosis B35.1 ; Pain in left toe(s) M79.675 and Tinea pedis of both feet B35.[address] [address] 09/09/2024 Fabby Black Pain in right toe(s) M79.674 ; Onychomycosis B35.1 ; Pain in left toe(s) M79.675 and Xerosis of skin L85.[address] [address] 10/16/2024 Fabby Black Pain in right toe(s) M79.674 ; Other hammer toe(s) (acquired), right foot M20.41 ; Arthritis of joint of lesser toe, right M19.071 ; Subluxation of metatarsophalangeal joint of toe, initial encounter S93.149A ; Pain in right foot M79.671 ; Plantar fasciitis of right foot M72.2 ; Interstitial myositis of right foot M60.171 and Bursitis of right foot M77.51 [facility] [address] [address] 07/01/2024 Fabby Singh [facility] [address] [address] 07/28/2024 Fabby Singh Assessments Encounter Date Diagnosis (ICD Code) Assessment Notes Treatment Notes Treatment Clinical Notes Section Notes 07/28/2024 Pain in right toe(s) (ICD-10 - M79.674) 07/28/2024 Onychomycosis (ICD-1 0 - B35.1) Patient Educated with: FUNGUS NAIL INFECTIONS.pd f (FUNGUS NAIL INFECTIONS.pd f) 09/09/2024 Pain in right toe(s) (ICD-10 - M79.674) r 10/16/2024 Pain in right toe(s) (ICD-10 - M79.674) 10/16/2024 Other hammer toe(s) (acquired), right foot (ICD-10 - M20.41) 09/09/2024 Onychomycosis (ICD-1 0 - B35.1) r 10/16/2024 Arthritis of joint o f lesser toe, right (ICD-10 - M19.071) 07/28/2024 Pain in left toe(s) (ICD-10 - M79.675) 09/09/2024 Pain in left toe(s) (ICD-10 - M79.675) r 07/28/2024 Tinea pedis of both feet (ICD-10 - B35.3) Patient Educated with: ATHELETE .pdf (ATHELETE .pdf) 09/09/2024 Xerosis of skin (ICD -10 - L85.3) r 10/16/2024 Subluxation of metatarsophalangeal joint of toe, initial encounter (ICD-10 - S93.149A) 10/16/2024 Pain in right foot (ICD-10 - M79.671) 10/16/2024 Plantar fasciitis of right foot (ICD-10 - M72.2) Patient Educated with: HEEL CORD STRETCHES.pdf (HEEL CORD STRETCHES.pdf ) Patient Educated with: RICE THERAPY.pdf (RICE THERAPY.pdf) 10/16/2024 Interstitial myositi s of right foot (ICD-10 - M60.171) 10/16/2024 Bursitis of right fo ot (ICD-10 - M77.51) 09/09/2024 Other r Plan Of Treatment Pending Test Test Name Order Date *Liver Function Test (LFT) 07/28/2024 45323-JVCZCQV NAIL, 6 OR MORE 09/09/2024 Nail Panel 07/28/2024 Next Appt Details Provider Name:Fabby Jayden Singh , 12/11/2024 12:15:00 PM, [address] [facility], [place], [address], Insurance Providers Payer Name Payer Address Payer Phone Subscriber Number Group Number Insured Name Patient Relationship to Insured Coverage Start Date Coverage End Date [facility] Adv [address] [place] [id number] Inge Trammell Self - patient is the insured Medical (General) History Medical History History ICD Code Anxiety Back,Hip,and Knee pain covid-19 Depression Fibromyalgia Headaches/Migraines Reynauds syndrome Sciatica sinusitis Chicken pox Joint implants/screws Surgical History Surgery Date(Month/Year) knee surgery 11/2021 09/04/2004
--- OUTSIDE RECORDS SUMMARY | 2024-10-26 12:23 | XMS_ITS ---
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 Role Phone Molina Shah Primary Care Provider Unav ailable Francisco, Fabby Unavailable [phone] REASON FOR VISIT BAKO Medications Medication SIG (Take, Route, Fr equency, Duration) Notes Start Date End Date Status Terbinafine HCl 250 MG 1 tablet Orally O nce a day for 7 days days then stop for 3 weeks repeat cycle for 90 days 07/31/2024 Active Encounters Encounter Location Date Provider Diagnosis [address] [address] 07/28/2024 Fabby Singh Plan Of Treatment Medication Medication Name Sig Start Date Stop Date Notes Terbinafine HCl 250 MG 1 tablet Orally O nce a day for 7 days days then stop for 3 weeks repeat cycle for 90 days 07/31/2024 Next Appt Details Provider Name:Fabby Singh , 12/11/2024 12:15:00 PM, [address] [facility], [place], [address], Progress Notes * Inge TRAMMELL MDOB:[birth year] (44 yo F)Acc No.[id number]:07/28/2024 Patient:?Inge TRAMMELL :1980???Age:44 Y???Sex:Female Address:[address] [place] [address], [address] * Refills? Start Terbinafine HCl Tablet, 250 MG, Orally, 21, 1 tablet, Once a day for 7 days days then stop for 3 weeks repeat cycle, 90 days, Refills=3 * true * Date:? Generated for Neena livingston/Dominguez/Nika on:?10/26/2024 12:22 PM EDT
--- OUTSIDE RECORDS SUMMARY | 2024-10-26 12:23 | XMS_ITS ---
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 Name Role Phone Molina Shah Primary Care Provider Unav ailable Black, Fabby Unavailable [phone] Allergies Allergen (clinical drug ingredient) Drug/Non Drug [...] Ordered Date Performed Result Body Sit e 00279-XRRJFOM NAIL, 6 OR MORE 09/09/2024 N/A Encounters Encounter Location Date Provider Diagnosis [facility] [place] [address] [place] [address] 09/09/2024 Fabby Singh Pain in right toe(s) [...] 09/09/2024 Pending Test Test Name Order Date [id number] NAIL, 6 OR MORE 09/09/2024 Next Appt Details Follow Up: 3 Months, Reason: Provider Name:Fabby Singh , 12/11/2024 12:15:00 PM, [address] [facility], [place], [address], Procedure Notes * Category Sub-Category Detail Notes [...] use of a nail nipper and/or dremel-type concrete wall grinder operator, to a more viable healthy nail plate [...] to maintain effectiveness in symptomatic relief - 98213 Patient chooses to cont, oral AF navdeep atment Progress Notes * Inge TRAMMELL MDOB:[birth year] (44 yo F)Acc No.[id number]:09/09/2024 Progress Notes Patient:?Nuha TRAMMELLique Prakash Provider:?Fabby Singh DPM :1980???Age:44 Y???Sex:Female D ate:09/09/2024 Address:[address] [place] [address] Pcp:EVERARDO Back Subjective: * Chief Complaints: * [...] walking, stationary bike. ?Marital status: Single. 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 ???Drug/Alcohol:?AUDIT-C (Standard)?Did you have a drink containing [...] use of a nail nipper and/or dremel-type concrete wall grinder operator, to a more viable healthy nail plate [...] to maintain effectiveness in symptomatic relief - 19324.?Patient chooses ?to cont, oral AF treatment.? * Procedure Codes:?21055 DEBRI DE NAIL, 6 OR MORE, Modifiers: [...] Singh DPM Date:?2024 Generated for Neena livingston/Dominguez/Bereitting on:?10/26/2024 12:22 PM EDT History and Physical Notes * [...]
--- OUTSIDE RECORDS SUMMARY | 2024-10-26 12:23 | XMS_ITS ---
[facility] Organization [facility] Address [address] [place] [address] Care Team Providers Care Explosives Worker Name Role Phone Molina Shah Primary Care Provider Unav ailable Black, Fabby Unavailable [phone] Allergies Allergen (clinical drug ingredient) Drug/Non Drug Allergy documented on EMR Reaction Allergy Type Onset Date Status gentamicin Gentamicin Unknown Drug Allergy Activ e Results Component Value Reference Range Notes X ray : Foot, right 3V Reviewed date:10/16/2024 10:25:49 AM Interpretation:See Examination above Performing Lab: Notes/Report: See Examination above REASON FOR VISIT Last PCP visit 10/10/24, Painful Toe(s), Heel pain Medications Medication SIG (Take, Route, Frequency, Duration) Notes Start Date End Date Status Wellbutrin Active Vitamin D3 Active Ammonium Lactate 12 % 1 application [...] repeat cycle for 90 days 07/31/2024 Active Night Splint AFO - L1930 1 wear at rest for 30 days Active Social History Tobacco Use: Social History Observation Description Date Details (start date - stop date) Never Smoker NA - NA Tobacco use other than smoking: Question Answer Notes Are you an other tobacco user? No Tobacco Control (Standard) Question Answer Notes Tobacco use: Nonsmoker Additional Findings: Tobacco non-user Current no nsmoker Problems Problem Type SNOMED Code ICD Code Onset Dates Problem Status W/U Status Risk Notes Problem Acquired hammer toe of right foot (4651754958275902) Other hammer toe(s) (acquired), right foot (M20.41) Active confirmed Problem Localized, primary osteoarthritis of the ankle and/or foot (339112193) Arthritis of joint of lesser toe, right (M19.071) Active confirmed Problem Plantar fasciitis of right foot (63080807986867396 ) Plantar fasciitis of right foot (M72.2) Active confirmed Problem Interstitial myositis (25779396) Interstitial myositis of right foot (M60.171) Active confirmed Vital Signs Height 5ft 7in in 10/16/2024 Weight 162 lbs 10/16/2024 BMI 25.37 kg/m2 10/16/2024 Blood pressure systolic 124 mm Hg 10/17/19 25 Blood pressure diastolic 68 mm Hg 025 Encounters Encounter Location Date Provider Diagnosis [facility] [address] [address] 10/16/2024 Fabby Black Pain in right toe(s) M79.674 ; Other hammer toe(s) (acquired), right foot M20.41 ; Arthritis of joint of lesser toe, right M19.071 ; Subluxation of metatarsophalangeal joint of toe, initial encounter S93.149A ; Pain in right foot M79.671 ; Plantar fasciitis of right foot M72.2 ; Interstitial myositis of right foot M60.171 and Bursitis of right foot M77.51 Assessments Encounter Date Diagnosis (ICD Code) Assessment Notes Treatment Notes Treatment Clinical Notes Section Notes 10/16/2024 Pain in right toe(s) (ICD-10 - M79.674) 10/16/2024 Other hammer toe(s) (acquired), right foot (ICD-10 - M20.41) 10/16/2024 Arthritis of joint o f lesser toe, right (ICD-10 - M19.071) 10/16/2024 Subluxation of metatarsophalangeal joint of toe, [...] of right fo ot (ICD-10 - M77.51) Plan Of Treatment Medication Medication Name Sig Start Date Stop Date Notes Night Splint AFO - L1930 1 wear at rest for 30 days Treatment Notes Assessment Notes Plantar fasciitis of right foot Patient Educated with: HEEL CORD STRETCHES.pdf (HEEL CORD STRETCHES.pdf) Patient Educated with: RICE THERAPY.pdf (RICE THERAPY.pdf) Next Appt Details Follow Up: as scheduled, Sue son: Provider Name:Fabby Singh , 12/11/2024 12:15:00 PM, [address] [place] [address], [id number], Procedure Notes * Category Sub-Category Detail Notes Keratoma Treatment Parring or Cutting o f Benign Hyperkeratotic Lesion(s) (-55) 1 Lesion - Due to the at risk nature of the patients medical condition as documented in the exam findings, performance of this keratoderma treatment is medically necessary as its management by an unskilled/untrained nonprofessional would put this patients foot and overall health at risk. Therefore, the benign hyperkeratotic lesion, 1 in total, as stated and described in the exam ( T6 ), was pared, and/or cut utilizing a sterile 15 blade, tissue nippers, and/or power dremel instrumentation by the physician of record - 74534 Progress Notes * Inge TRAMMELL MDOB:[birth year] (44 yo F)Acc No.[id number]:10/16/2024 Progress Note Patient:?Inge TRAMMELL Provider:Jes Singh DPM :1980???Age:44 Y???Sex:Female D ate:10/16/2024 Address:[address] [place], [place] [id number] Pcp:EVERARDO Back Subjective: * Chief Complaints: * ???Last PCP visit 10/10/24Pai nful Toe(s)Heel pain * HPI: ???Toe pain:?Nature:?tenderness.?Location:?Right foot, 2nd toe.?Duration:?, several months.?Course:?worse.?Aggravated by:?any pressure, shoes.?Treatments:?rest/alter normal daily activity, change in shoes.?Heel pain:?Location:?Proximal plantar aspect of Heel, RIGHT.?Duration:?, several months.?Course:?worse.?Aggravated:?standing, walking, walking first thing in the morning/after rest.?Treatments:?rest/alter normal daily activity.? * ROS:?General/Constitutional:?Nausea?denies.?Vomiting?denies.?Hunger Thirst?denies.?Loss appetite?denies.?Chills?denies.?Fatigue?denies.?Fever?denies.?Night Sweats?denies.?Unexplained weight loss?denies.?Unexplained [...] ry -Section 09/04/2004 * Hospitalization/Major Diagno stic Procedure:?No Hospitalization History. * Family History:?Maternal Gra nd Mother: diabetes, [...] walking, stationary bike. ?Marital status: Single. 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 * Medications:?TakingWellbutri n Vitamin D3 Ciclopirox Olamine 0.77 % Cream 1 application Externally Twice a day to skin of feet including between the toes Terbinafine HCl 250 MG Tablet 1 tablet Orally Once a day for 7 days days then stop for 3 weeks repeat cycle Ammonium Lactate 12 % Cream 1 application to affected area Externally Twice a day to dry areas of skin on feet Medication List reviewed and reconciled with the patientTaking Wellbutrin Taking Vitamin D3 Taking Ciclopirox Olamine 0.77 % Cream 1 application Externally Twice a day to skin of feet including between the toes Taking Terbinafine HCl 250 MG Tablet 1 tablet Orally Once a day for 7 days days then stop for 3 weeks repeat cycle Taking Ammonium Lactate 12 % Cream 1 application to affected area Externally Twice a day to dry areas of skin on feet Medication List reviewed and reconciled with the patient * Allergies:?Gentamicinyes[All ergies Verified] Objective: * Vitals:?Ht: 5ft 7in, Wt:162, BMI:25.37, Shoe size: 8.5, BP:124/68mm Hg, Ht-cm: 170.18 cm, Wt-k.48 kg. * Examination: ???General Examination: ?GENERAL APPEARANCE:?Reveals a pleasant, alert, well nourished, well- developed, well hydrated individual, who demonstrates proper attention to hygiene/body habitus, and is in no acute distress, Pt serves as own historian for office visit today.?ORIENTED:?person, place, and time.?Orthopedic: ?GAIT ABNORMALITY:?antalgic.?FOOT MORPHOLOGY:? Pes Planus structure, Decreased Ankle joint dorsiflexion ROM, knee extended.?DIGITAL DEFORMITIES:?, Digital contracture, PIPJ, 2-5 B/L, incompl- reducible with WB, or to push-up test, no over, nor underlapping, Reveals pain/swelling/redness/enlargement of PIPJ, Dorsal, T6.?FOOTWEAR EVALUATION:? shoe gear properties exacerbate patients foot/toe deformity ,.?Vascular: ?DP PULSES (B):?2/4, B/L.?PT PULSES (B):?2/4, B/L.?CAPILLARY FILL TIME:?immediate, all digits, B/L.?TROPHIC CONDITION-TEXTURE/ELASTICITY/TURGOR/HAIR GROWTH (B):?normal, B/L.?TEMPERTURE GRADIENT (C):?normal, warm to cool, proximal to distal, B/L, B/L.?PIGMENTATION:?normal, B/L.?Neurological: ?SENSORY:?Neurological exam reveals intact sensorium, pain sensation normal, vibration sensation intact, pinprick sensation is normal in the lower extremities, Pt denies, anesthesia, burning, paresthesia, tingling, B/L.?TINEL'S COMPRESSION:?Negative tarsal tunnel, haleigh pedis, and medial calcaneal nerves.?Dermatologic: ?SKIN FINDINGS:?Skin exam reveals Keratotic lesion(s) located at, Dorsal, T6.?Heel Pain: ?INSPECTION:? Pain on Palpation to Plantar Fascia med. and central bands, intrinsic musc., infra-calcaneal bursa, and med calc tubercle , RIGHT foot, No pain: posterior/superior heel, achilles bursa/tendon, sinus tarsi, peroneals, or with lateral heel compression; no limited STJ ROM, calor, or ecchymosis,RIGHT foot.?X-Rays - IMAGING REPORT: ?Clinical Indication(s):? Evaluate Biomechanical Deformity , Evaluate for Fracture,?.?Views:?3 views of Foot, AP, LO, MO, RIGHT??Taken by trained?Podiatric Seed Cleaning Machine Operator (?[place] )?.?Findings:?normal bone and soft tissue density consistent for patients age and sex.?Digits:? show asymmetrical joint space narrowing at the PIPJ consistent with clinical finding of hammertoe deformity,2nd digit.?Fracture:? Negative fractures identified , Negative fractures identified.? Assessment: * Assessment: 1.?Pain in right toe(s) - M7 9.674???2.?Other hammer toe(s) (acquired), right foot - M20.41 (Primary)???Specify :Chronic problem, Worse (4)???3.?Arthritis of joint of lesser toe, right - M19.071???4. 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 Plan: * Treatment: 2.?Plantar fasciitis of righ t foot? Start Night Splint AFO - L1930, 1, wear, at rest, 30 days, 1, Refills 0.?? Notes: Patient Educated with: HEEL CORD STRETCHES.pdf (HEEL CORD STRETCHES.pdf) Patient Educated with: RICE THERAPY.pdf (RICE THERAPY.pdf)?? * Procedures:?Keratoma Treatment:?Parring or Cutting of Benign Hyperkeratotic Lesion(s)?(-55) 1 Lesion - Due to the at risk nature of the patients medical condition as documented in the exam findings, performance of this keratoderma treatment is medically necessary as its management by an unskilled/untrained nonprofessional would put this patients foot and overall health at risk. Therefore, the benign hyperkeratotic lesion, 1 in total, as stated and described in the exam ( T6 ), was pared, and/or cut utilizing a sterile 15 blade, tissue nippers, and/or power dremel instrumentation by the physician of record - 60667.? * Procedure Codes:?35868 X-RAY EXAM OF RIGHT FOOT 3V, Modifiers: 26 , RT * Preventive Medicine:? ??Counseling:?Discussion:?-14: Office or other outpatient visit for the [...] have encouraged the patient to call the office.?Digital Surgery:?Digital surgery was discussed with the patient, including the risks of surgery(below), vs not having surgery (persistent pain, deformity, risk for skin ulceration/infection, loss of toe), the potential surg complications, the anesthesia, and the usual post-op course. No guarentees were given. We discussed the potential procedure complications including, but not limited to: pain, swelling, bleeding, scarring, numbness, infection, delayed/non healing, floppy/unstable/shorthened toe, recurrence, failure of the procedure, overcorrection leading to plantarflexed/downward positioned toe, recurrence, need for further surgery, as well as the possibility for loss of the toe itself. We discussed the use of local anesthesia, and the usual post-op course for healing. No guarentees were given. The patient verbally indicated a full understanding of the above conversation, and any other of their questions were answered to their satisfaction. Alternatives to the procedure were also discussed, including conservative care. I also discussed the usual post-operative course and gave no guarantees regarding outcome, FLEXOR : Minimal Incision digital procedure consisting of Percutaneous Flexor Release was discussed with the patient, including the risks of the procedure vs and not having the procedure, the potential procedure complications, the anesthesia, and the usual post-op course. No guarentees were given. We discussed with the patient the complications such as delayed/non healing, excessive scarring, excessive swelling, failure of procedure, floppy toe, infection, numbness, chronic pain, recurrence of the condition, shortened toe, joint stiffness, and possible loss of limb/life. Alternatives to the procedure were also discussed, including conservative care, The patient would like to procede with surgical treatment, The patient will consider surgical treatment.?Digital Treatment:?HT- I explained to the patient the possible etiologies of Hammertoes, including genetics/foot type/shoegear/activity level/exercise routine and the risks/benefits of all the different treatment options for their pain including: No treatment at all, Rest, Ice, New/supportive/wider/deeper Shoe gear, Digital Padding/Strapping/Taping/Bracing/Gel protective sleeves, Foot/Ankle AFO Bracing, Stretching exercises, Deep Tissue Massage, Arch support/shoe inserts with splay metatarsal padding, and Custom orthoses. I insisted that any digital devices be removed daily and not worn overnight for safety. The patient is to carefully examine the toes daily for any skin irritation while using any splinting or padding device. The advantages and disadvantages of each option were discussed and the patients questions re: shoe gear, padding, custom vs prefabricated inserts, activity level, and consistency in home treatment regimens for optimal success were answered to their verbally confirmed satisfaction, Recomm, rest, ice, proper shoegear, padding, orthotics, anti-inflammatories or tylenol as tolerated, topical analgesics, cortisone injections.?Heel pain:?FASCIITIS: I explained to the patient the possible etiologies of Plantar Fasciitis including foot type/shoegear/activity level/exercise routine and the risks/benefits of all the different treatment options for heel pain including: No treatment at all, Rest, Ice, NSAIDs(only if well tolerated after meals), New/supportive Shoegear, Strappings and Tapings, Stretching exercises, Deep Tissue Massage, Heel cups/cushions, Arch support/shoe inserts, Custom orthoses, Topical analgesics including Aspercream/Voltaren gel, Night splint AFO for am stiffness, Cortisone injection therapy, Cast boot with crutches/cane/or walker for assisted ambulation, Physical Therapy, EPAT/ESWT, Interfil injection therapy, as well as surgical Pioneer/Endoscopic Fasciitomy surgical procedures if needed. Recommendations were made to limit barefoot walking, eliminate wearing nonsupportive shoegear (i.e. flip-flops or sandals, or a shoe with an easily bendable, foldable, or twistable sole) and wear shoegear with a good solid sole, a supportive arch, and plenty of room for an insert/orthotic if necessary. If wearing sandals was required by the patient, we recommended orthopedic sandals such as Orthoheel or Birkenstock even while in the home. If the patient wore heels in the past, we recommended they continue, but eliminate the use of flats. The advantages and disadvantages of each option were discussed and the patients questions re: types of shoegear, custom vs prefabricated inserts, activity level, PO vs Topical medications (and their respective potential complications/drug interactions/side effects), and consistency in home treatment regimens for optimal success were answered to their satisfaction. Literature detailing plantar fasciitis and the various treatment options were dispensed and reviewed, Stretching exercises for the patients injury/diagnosis were discussed and demonstrated, Handouts were also given, Recommended a Night Splint to be worn daily for a minimum of 2 hours, The Pt. was counseled on the x-rays, treatment options, and the importance of following all homecare instructions.?X-rays:?The Pt. was counseled on the x-rays, treatment options, and the importance of following all homecare instructions.? ??Screening/Special Tests:?Fall Risk?Screening:?No falls in the past year ?FALLS: Screening for Future Fall Risk?Have you had any falls with injury in the past year??No * Follow Up:?as scheduled * Images: * Sign off status: Completed true * Provider:?Fabby Singh DPM Date:?2024 Generated for Neena livingston/Dominguez/Bereitting on:?10/26/2024 12:22 PM EDT History and Physical Notes * HPI (History of Present Illness) Category Sub-Category Detail Notes Category Not es Heel pain Duration: , several months Location: Proximal plantar asp ect of Heel, RIGHT Aggravated: standing, walking, w alking first thing in the morning/after rest Course: worse Treatments: rest/alter normal da joycelyn activity Toe pain Nature: tenderness Location: Right foot, 2nd toe Duration: , several months Course: worse Aggravated by: any pressure, shoes Treatments: rest/alter normal da joycelyn activity, change in shoes Examination Category Sub-Category Detail Notes Category Not es Neurological SENSORY: Neurological exa m reveals intact sensorium, pain sensation normal, vibration sensation intact, pinprick sensation is normal in the lower extremities, Pt denies, anesthesia, burning, paresthesia, tingling, B/L TINEL'S COMPRESSION: Negative tarsal leigh ann rodrigo, haleigh pedis, and medial calcaneal nerves Dermatologic SKIN FINDINGS: Skin exam reveal s Keratotic lesion(s) located at, Dorsal, T6 Orthopedic GAIT ABNORMALITY: antalgic FOOT MORPHOLOGY: Pes Planus structure , Decreased Ankle joint dorsiflexion ROM, knee extended FOOTWEAR EVALUATION: shoe gear propertie s exacerbate patients foot/toe deformity , DIGITAL DEFORMITIES: , Digital contractu re, PIPJ, 2-5 B/L, incompl-reducible with WB, or to push-up test, no over, nor underlapping, Reveals pain/swelling/redness/enlargement of PIPJ, Dorsal, T6 General Examination GENERAL APPEARANCE: Reveals a pleasant, [...] GROWTH (B): normal, B/L PIGMENTATION: normal, B/L X-Rays - IMAGING REPORT Findings: normal b one and soft tissue density consistent for patients age and sex Fracture: Negative fractures i dentified , Negative fractures identified Digits: show asymmetrical mauricio int space narrowing at the PIPJ consistent with clinical finding of hammertoe deformity,2nd digit Views: 3 views of Foot, AP, LO, MO, RIGHT Taken by trained Podiatric Seed Cleaning Machine Operator ( [place] ) Clinical Indication(s): Evaluate Biomech anical Deformity , Evaluate for Fracture, Heel Pain INSPECTION: Pain on Palpatio n to Plantar Fascia med. and central bands, intrinsic musc., infra-calcaneal bursa, and med calc tubercle , RIGHT foot, No pain: posterior/superior heel, achilles bursa/tendon, sinus tarsi, peroneals, or with lateral heel compression; no limited STJ ROM, calor, or ecchymosis,RIGHT foot
[2024-10-26 13:19] LABS: Appearance Urine Clear; Color Urine Yellow; Glucose Urine UA Negative (Negative); Leukocyte Esterase Urine Negative (Negative); Nitrite Urine Negative (Negative); PH 6.5 (5.0-9.0); Specific Gravity - Urine <= 1.005 (1.005-1.025); Urine Blood Negative (Negative); Urine Ketones Negative (Negative); Urine Protein Negative (Neg-Trace)
== END 2024-10-26 10:42 | disposition home or self-care (01) ==
LOC: HO.HMGCLDS 10:41
PROVIDERS: PCP Nurse Practitioner Family; Visit Provider Nurse Practitioner Family
DX: R30.0 Dysuria (principal)
CPT/HCPCS: 81003; 87086

== ENCOUNTER 2024-11-04 11:56 | Outpatient (REF) | payer OTHER, SELFPAY ==
[2024-11-04 13:53] LABS: C Reactive Protein 0.21 mg/dL (< or = 0.50)
[2024-11-04 14:16] LABS: Erythrocyte Sedimentation Rate 9 MM/HR (0-20)
--- OUTSIDE RECORDS SUMMARY | 2024-11-04 14:24 | XMS_ITS | Patient Health Record ---
Author [facility] Address [address] [place] [address] Care Team Providers Care Concrete Block Molder Name Role Phone Molina Shah Primary Care Provider Unav ailable Black, Fabby Unavailable [phone] Allergies Allergen (clinical drug ingredient) Drug/Non Drug [...] Problem Acquired hammer toe of right foot (8746906200316240) Other hammer toe(s) (acquired), right foot (M20.41) Active confirmed Problem Plantar fasciitis of right foot (62332749631620513 ) Plantar fasciitis of right foot (M72.2) Active confirmed Problem Interstitial myositis (74844899) Interstitial myositis of right foot (M60.171) Active confirmed Problem Localized, primary osteoarthritis of the ankle and/or foot (661499982) Arthritis of joint of lesser toe, right (M19.071) Active confirmed Vital Signs Blood pressure diastolic 68 mm Hg 10/16/2024 Height 5ft 7in in 10/16/2024 Blood pressure systolic 124 mm Hg 10/16/2024 Weight 162 lbs 10/16/2024 BMI 25.37 kg/m2 10/16/2024 Procedures Procedure Date Ordered Date Performed Result Body Sit e 91484-RZZVTDT NAIL, 6 OR MORE 09/09/2024 N/A Encounters Encounter Location Date Provider Diagnosis [address] [address] 07/28/2024 Fabby Black Pain in right toe(s) M79.674 ; Onychomycosis B35.1 ; Pain in left toe(s) M79.675 and Tinea pedis of both feet B35.[address] [address] 09/09/2024 Fabby Black Pain in right toe(s) M79.674 ; Onychomycosis B35.1 ; Pain in left toe(s) M79.675 and Xerosis of skin L85.[address] [address] 10/16/2024 Fabby Black Pain in right toe(s) M79.674 ; Other hammer toe(s) (acquired), right foot M20.41 ; Arthritis of joint of lesser toe, right M19.071 ; Subluxation of metatarsophalangeal joint of toe, initial encounter S93.149A ; Pain in right foot M79.671 ; Plantar fasciitis of right foot M72.2 ; Interstitial myositis of right foot M60.171 and Bursitis of right foot M77.51 [facility] [address] [address] 07/01/2024 Fabby Singh [facility] [address] [address] 07/28/2024 Fabby Singh Assessments Encounter Date Diagnosis [...] Order Date *Liver Function Test (LFT) 07/28/2024 52155-[id number] NAIL, 6 OR MORE 09/09/2024 Nail Panel 07/28/2024 Next Appt Details Provider Name:Fabby Jayden Singh , 12/11/2024 12:15:00 PM, [address] [facility], [place], [address], Insurance Providers Payer Name Payer Address Payer Phone Subscriber Number Group Number Insured Name Patient Relationship to Insured Coverage Start Date Coverage End Date [facility] Adv [address] [place] [id number] Inge Trammell Self - patient is the insured Medical (General) History Medical History History ICD Code Anxiety Back,Hip,and Knee pain covid-19 Depression Fibromyalgia Headaches/Migraines Reynauds syndrome Sciatica sinusitis Chicken pox Joint implants/screws Surgical History Surgery Date(Month/Year) knee surgery 11/2021 09/04/2004
--- OUTSIDE RECORDS SUMMARY | 2024-11-04 14:24 | XMS_ITS ---
Author Organization [facility] Address [address] [place] [address] Care Team Providers Care Warehouse Receiving Clerk Name Role Phone Molina Shah Primary Care Provider Unav ailable Francisco, Fabby Unavailable [phone] REASON FOR VISIT BAKO Medications Medication SIG (Take, Route, Fr equency, Duration) Notes Start Date End Date Status Terbinafine HCl 250 MG 1 tablet Orally O nce a day for 7 days days then stop for 3 weeks repeat cycle for 90 days 07/31/2024 Active Encounters Encounter Location Date Provider Diagnosis [address] [address] 07/28/2024 Fabby Singh Plan Of Treatment Medication Medication Name Sig Start Date Stop Date Notes Terbinafine HCl 250 MG 1 tablet Orally O nce a day for 7 days days then stop for 3 weeks repeat cycle for 90 days 07/31/2024 Next Appt Details Provider Name:Fabby Singh , 12/11/2024 12:15:00 PM, [address] [facility], [place], [address], Progress Notes * Inge TRAMMELL MDOB:[birth year] (44 yo F)Acc No.[id number]:07/28/2024 Patient:?Inge TRAMMELL :1980???Age:44 Y???Sex:Female Address:[address] [place] [address], [address] * Refills? Start Terbinafine HCl Tablet, 250 MG, Orally, 21, 1 tablet, Once a day for 7 days days then stop for 3 weeks repeat cycle, 90 days, Refills=3 * true * Date:? Generated for Neena livingston/Dominguez/Nika on:?11/04/2024 02:24 PM EDT
--- OUTSIDE RECORDS SUMMARY | 2024-11-04 14:24 | XMS_ITS ---
Author Organization [facility] Address [address] [place] [address] Care Team Providers Care Sand Mill Grinder Name Role Phone Molina Shah Primary Care Provider Unav ailable Black, Fabby Unavailable [phone] Allergies Allergen (clinical drug ingredient) Drug/Non Drug [...] 0 Interpretation Negative Vital Signs Blood pressure systolic 120 mm Hg 09/09/19 25 Blood pressure diastolic 70 mm Hg 025 Height 5ft 7in in 09/09/2024 Weight 170 lbs 09/09/2024 BMI 26.62 kg/m2 09/09/2024 Procedures Procedure Date Ordered Date Performed Result Body Sit e 17196-QDEOIBQ NAIL, 6 OR MORE 09/09/2024 N/A Encounters Encounter Location Date Provider Diagnosis [facility] [address] [place] [address] 09/09/2024 Fabby Singh Pain in right toe(s) [...] 09/09/2024 Pending Test Test Name Order Date [id number] NAIL, 6 OR MORE 09/09/2024 Next Appt Details Follow Up: 3 Months, Reason: Provider Name:Fabby Singh , 12/11/2024 12:15:00 PM, [address] [facility], [place], [address], Procedure Notes * Category Sub-Category Detail Notes [...] use of a nail nipper and/or dremel-type precision grinder external, to a more viable healthy nail plate [...] to maintain effectiveness in symptomatic relief - 55889 Patient chooses to cont, oral AF navdeep atment Progress Notes * Inge TRAMMELL MDOB:[birth year] (44 yo F)Acc No.[id number]:09/09/2024 Progress Notes Patient:?Nuha TRAMMELLique Prakash Provider:?Fabby Singh DPM :1980???Age:44 Y???Sex:Female D ate:09/09/2024 Address:[address] [place] [address] Pcp:EVERARDO Back Subjective: * Chief Complaints: * [...] walking, stationary bike. ?Marital status: Single. 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 ???Drug/Alcohol:?AUDIT-C (Standard)?Did you have a drink containing [...] use of a nail nipper and/or dremel-type precision grinder external, to a more viable healthy nail plate [...] to maintain effectiveness in symptomatic relief - 78906.?Patient chooses ?to cont, oral AF treatment.? * Procedure Codes:?27574 DEBRI DE NAIL, 6 OR MORE, Modifiers: [...] Singh DPM Date:?2024 Generated for Neena livingston/Dominguez/Bereitting on:?11/04/2024 02:24 PM EDT History and Physical Notes * [...]
--- OUTSIDE RECORDS SUMMARY | 2024-11-04 14:24 | XMS_ITS ---
Author Organization [facility] Address [address] [place] [address] Care Team Providers Care State Auditor Name Role Phone Molina Shah Primary Care Provider Unav ailable Black, Fabby Unavailable [phone] Allergies Allergen (clinical drug ingredient) Drug/Non Drug [...] Problem Acquired hammer toe of right foot (6433794792591577) Other hammer toe(s) (acquired), right foot (M20.41) Active confirmed Problem Localized, primary osteoarthritis of the ankle and/or foot (893908895) Arthritis of joint of lesser toe, right (M19.071) Active confirmed Problem Plantar fasciitis of right foot (08604165637213238 ) Plantar fasciitis of right foot (M72.2) Active confirmed Problem Interstitial myositis (13232817) Interstitial myositis of right foot (M60.171) Active confirmed Vital Signs Blood pressure systolic 124 mm Hg 10/17/19 25 Blood pressure diastolic 68 mm Hg 025 Height 5ft 7in in 10/16/2024 Weight 162 lbs 10/16/2024 BMI 25.37 kg/m2 10/16/2024 Encounters Encounter Location Date Provider Diagnosis [facility] [address] [address] 10/16/2024 Fabby Black Pain in right toe(s) [...] Provider Name:Fabby Singh , 12/11/2024 12:15:00 PM, [address] [place] [address], [address], Procedure Notes * Category Sub-Category Detail Notes [...] instrumentation by the physician of record - 16167 Progress Notes * Inge TRAMMELL MDOB:[birth year] (44 yo F)Acc No.[id number]:10/16/2024 Progress Note Patient:?Inge TRAMMELL Provider:Jes Singh DPM :1980???Age:44 Y???Sex:Female D ate:10/16/2024 Address:[address] [place], [place] [id number] Pcp:EVERARDO Back Subjective: * Chief Complaints: * [...] walking, stationary bike. ?Marital status: Single. 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 * Medications:?TakingWellbutri n Vitamin D3 Ciclopirox Olamine [...] Foot, AP, LO, MO, RIGHT??Taken by trained?Podiatric Automatic Fabric Cutter (?[place] )?.?Findings:?normal bone and soft tissue density [...] instrumentation by the physician of record - 97976.? * Procedure Codes:?62878 X-RAY EXAM OF RIGHT FOOT 3V, Modifiers: [...] Interfil injection therapy, as well as surgical [place]/Endoscopic Fasciitomy surgical procedures if needed. Recommendations were [...] DPM Date:?2024 Generated for Neena livingston/Dominguez/Bereitting on:?11/04/2024 02:23 PM EDT History and Physical Notes * [...] LO, MO, RIGHT Taken by trained Podiatric Automatic Fabric Cutter ( [place] ) Clinical Indication(s): Evaluate Biomech [...]
== END 2024-11-04 11:57 | disposition home or self-care (01) ==
LOC: HO.HMGCLDS 11:56
PROVIDERS: PCP Nurse Practitioner Family; Visit Provider Registered Nurse
DX: G43.909 Migraine, unspecified, not intractable, without status migrainosus (principal)
CPT/HCPCS: 36415; 85652; 86140

== ENCOUNTER 2024-11-26 10:52 | Outpatient (REF) | payer OTHER, SELFPAY ==
--- OUTSIDE RECORDS SUMMARY | 2024-11-26 12:02 | XMS_ITS | Patient Health Record ---
Author Organization [facility] Address [address] [place] [address] Care Team Providers Care Producer Director Name Role Phone Molina Shah Primary Care Provider Unav ailable Black, Fabby Unavailable [phone] Allergies Allergen (clinical drug ingredient) Drug/Non Drug [...] Problem Status W/U Status Risk Notes Problem Other hammer toe(s) (acquired), right foot (M20.41) Active confirmed Problem Plantar fasciitis of right foot (75279379856900439 ) Plantar fasciitis of right foot (M72.2) Active confirmed Problem Interstitial myositis (64920668) Interstitial myositis of right foot (M60.171) Active confirmed Problem Localized, primary osteoarthritis of the ankle and/or foot (668177150) Arthritis of joint of lesser toe, right (M19.071) Active confirmed Vital Signs Blood pressure diastolic 68 mm Hg 10/16/2024 Height 5ft 7in in 10/16/2024 Blood pressure systolic 124 mm Hg 10/16/2024 Weight 162 lbs 10/16/2024 BMI 25.37 kg/m2 10/16/2024 Procedures Procedure Date Ordered Date Performed Result Body Sit e 56439-XRNQYMJ NAIL, 6 OR MORE 09/09/2024 N/A Encounters Encounter Location Date Provider Diagnosis [address] [address] 07/28/2024 Fabby Black Pain in right toe(s) M79.674 ; Onychomycosis B35.1 ; Pain in left toe(s) M79.675 and Tinea pedis of both feet B35.[address] [address] 09/09/2024 Fabby Black Pain in right toe(s) M79.674 ; Onychomycosis B35.1 ; Pain in left toe(s) M79.675 and Xerosis of skin L85.[address] [address] 10/16/2024 Fabby Black Pain in right toe(s) M79.674 ; Other hammer toe(s) (acquired), right foot M20.41 ; Arthritis of joint of lesser toe, right M19.071 ; Subluxation of metatarsophalangeal joint of toe, initial encounter S93.149A ; Pain in right foot M79.671 ; Plantar fasciitis of right foot M72.2 ; Interstitial myositis of right foot M60.171 and Bursitis of right foot M77.51 [facility] [address] [address] 07/01/2024 Fabby Francisco [facility] [address] [address] 07/28/2024 Fabbyberkley Singh Assessments Encounter Date Diagnosis (ICD Code) [...] Order Date *Liver Function Test (LFT) 07/28/2024 31705-[id number] NAIL, 6 OR MORE 09/09/2024 Nail Panel 07/28/2024 Next Appt Details Provider Name:Fabby Carpenter Francisco , 12/11/2024 12:15:00 PM, [address] [facility], [place], [address], Insurance Providers Payer Name Payer Address Payer Phone Subscriber Number Group Number Insured Name Patient Relationship to Insured Coverage Start Date Coverage End Date [facility] Adv [address] [place] [id number] [phone] [id number] Inge Trammell Self - patient is the insured Medical (General) History Medical History History ICD Code Anxiety Back,Hip,and Knee pain covid-19 Depression Fibromyalgia Headaches/Migraines Reynauds syndrome Sciatica sinusitis Chicken pox Joint implants/screws Surgical History Surgery Date(Month/Year) knee surgery 11/2021 09/04/2004
--- OUTSIDE RECORDS SUMMARY | 2024-11-26 12:02 | XMS_ITS ---
Author Organization [facility] Address [address] [place] [address] Care Team Providers Care Senior Investigator Name Role Phone Molina Shah Primary Care Provider Unav ailable Black, Fabby Unavailable [phone] Allergies Allergen (clinical drug ingredient) Drug/Non Drug [...] Ordered Date Performed Result Body Sit e 11771-AYMEASK NAIL, 6 OR MORE 09/09/2024 N/A Encounters Encounter Location Date Provider Diagnosis [facility] [place] [address] [place] [address] 09/09/2024 Fabby Singh Pain in right toe(s) [...] 09/09/2024 Pending Test Test Name Order Date [id number] NAIL, 6 OR MORE 09/09/2024 Next Appt Details Follow Up: 3 Months, Reason: Provider Name:Fabby Singh , 12/11/2024 12:15:00 PM, [address] [facility], [place], [address], Procedure Notes * Category Sub-Category Detail Notes [...] use of a nail nipper and/or dremel-type gold nib grinder, to a more viable healthy nail [...] to maintain effectiveness in symptomatic relief - 33295 Patient chooses to cont, oral AF navdeep atment Progress Notes * Inge TRAMMELL MDOB:[birth year] (44 yo F)Acc No.[id number]:09/09/2024 Progress Notes Patient:?Nuha TRAMMELLique Prakash Provider:?Fabby Singh DPM :1980???Age:44 Y???Sex:Female D ate:09/09/2024 Address:[address] [place] [address] Pcp:EVERARDO Back Subjective: * Chief Complaints: * [...] walking, stationary bike. ?Marital status: Single. 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 ???Drug/Alcohol:?AUDIT-C (Standard)?Did you have a drink containing [...] use of a nail nipper and/or dremel-type gold nib grinder, to a more viable healthy nail [...] to maintain effectiveness in symptomatic relief - 15276.?Patient chooses ?to cont, oral AF treatment.? * Procedure Codes:?16578 DEBRI DE NAIL, 6 OR MORE, Modifiers: [...] Singh DPM Date:?2024 Generated for Neena livingston/Dominguez/Bereitting on:?11/26/2024 12:02 PM EDT History and Physical Notes * [...]
--- OUTSIDE RECORDS SUMMARY | 2024-11-26 12:02 | XMS_ITS ---
Author Organization [facility] Address [address] [place] [address] Care Team Providers Care County Home Demonstration Agent Name Role Phone Molina Shah Primary Care Provider Unav ailable Black, Fabby Unavailable [phone] Allergies Allergen (clinical drug ingredient) Drug/Non Drug [...] Problem Acquired hammer toe of right foot (7455909640360166) Other hammer toe(s) (acquired), right foot (M20.41) Active confirmed Problem Localized, primary osteoarthritis of the ankle and/or foot (911977815) Arthritis of joint of lesser toe, right (M19.071) Active confirmed Problem Plantar fasciitis of right foot (12827034243603783 ) Plantar fasciitis of right foot (M72.2) Active confirmed Problem Interstitial myositis (09336935) Interstitial myositis of right foot (M60.171) Active confirmed Vital Signs Height 5ft 7in in 10/16/2024 Weight 162 lbs 10/16/2024 BMI 25.37 kg/m2 10/16/2024 Blood pressure systolic 124 mm Hg 10/17/19 25 Blood pressure diastolic 68 mm Hg 025 Encounters Encounter Location Date Provider Diagnosis [facility] [address] [address] 10/16/2024 Fabby Black Pain in right toe(s) [...] Provider Name:Fabby Singh , 12/11/2024 12:15:00 PM, [address] [place] [address], [address], Procedure Notes * Category Sub-Category Detail Notes [...] instrumentation by the physician of record - 24043 Progress Notes * Inge TRAMMELL MDOB:[birth year] (44 yo F)Acc No.[id number]:10/16/2024 Progress Note Patient:?Inge TRAMMELL Provider:Jes Singh DPM :1980???Age:44 Y???Sex:Female D ate:10/16/2024 Address:[address] [place], [place] [id number] Pcp:EVERARDO Back Subjective: * Chief Complaints: * [...] walking, stationary bike. ?Marital status: Single. 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 * Medications:?TakingWellbutri n Vitamin D3 Ciclopirox Olamine [...] Foot, AP, LO, MO, RIGHT??Taken by trained?Podiatric Global Marketing Manager (?[place] )?.?Findings:?normal bone and soft tissue density [...] instrumentation by the physician of record - 27984.? * Procedure Codes:?65454 X-RAY EXAM OF RIGHT FOOT 3V, Modifiers: [...] Interfil injection therapy, as well as surgical [place]/Endoscopic Fasciitomy surgical procedures if needed. Recommendations were [...] DPM Date:?2024 Generated for Neena livingston/Dominguez/Bereitting on:?11/26/2024 12:01 PM EDT History and Physical Notes * [...] LO, MO, RIGHT Taken by trained Podiatric Global Marketing Manager ( [place] ) Clinical Indication(s): Evaluate Biomech [...]
--- OUTSIDE RECORDS SUMMARY | 2024-11-26 12:02 | XMS_ITS ---
Author Organization [facility] Address [address] [place] [address] Care Team Providers Care Customer Support Analyst Name Role Phone Molina Shah Primary Care Provider Unav ailable Francisco, Fabby Unavailable [phone] REASON FOR VISIT BAKO Medications Medication SIG (Take, Route, Fr equency, Duration) Notes Start Date End Date Status Terbinafine HCl 250 MG 1 tablet Orally O nce a day for 7 days days then stop for 3 weeks repeat cycle for 90 days 07/31/2024 Active Encounters Encounter Location Date Provider Diagnosis [address] [address] 07/28/2024 Fabby Singh Plan Of Treatment Medication Medication Name Sig Start Date Stop Date Notes Terbinafine HCl 250 MG 1 tablet Orally O nce a day for 7 days days then stop for 3 weeks repeat cycle for 90 days 07/31/2024 Next Appt Details Provider Name:Fabby Singh , 12/11/2024 12:15:00 PM, [address] [facility], [place], [address], Progress Notes * Inge TRAMMELL MDOB:[birth year] (44 yo F)Acc No.[id number]:07/28/2024 Patient:?Inge TRAMMELL :1980???Age:44 Y???Sex:Female Address:[address] [place] [address], [address] * Refills? Start Terbinafine HCl Tablet, 250 MG, Orally, 21, 1 tablet, Once a day for 7 days days then stop for 3 weeks repeat cycle, 90 days, Refills=3 * true * Date:? Generated for Neena livingston/Dominguez/Nika on:?11/26/2024 12:02 PM EDT
[2024-11-26 14:13] LABS: HBS Num1 443.07 mIU/mL (0-7.99); HBc Num1 0.16 S/CO (0.00-0.79); HBsAGNum1 0.31 S/CO (0.00-0.99); Hepatitis A Antibody IgM 0.15 Index (0-0.79); Hepatitis B Core Antibody Nonreactive (Nonreactive); Hepatitis B Surface Antigen Negative (Negative); ~HepC Num1 0.09 S/CO (0.00-0.79); ~Hepatitis A Antibody IgM Nonreactive (Nonreactive); ~Hepatitis B Surface Antibody REACTIVE (Nonreactive); ~Hepatitis C Antibody Nonreactive (Nonreactive)
[2024-11-27 06:09] LABS: Rubella IgG Antibody 3.47 Index; Rubeola IgG (Measles) >300.00 AU/mL
[2024-11-30 04:39] LABS: TS Negative Control Passed; TS Panel A 0; TS Panel B 0; TS Positive Control Passed; TSpotTB Negative (Negative)
== END 2024-11-26 10:53 | disposition home or self-care (01) ==
LOC: HO.HMGCLDS 10:52
PROVIDERS: PCP Nurse Practitioner Family; Visit Provider Nurse Practitioner Family
DX: Z11.1 Encounter for screening for respiratory tuberculosis (principal); Z28.39 Other underimmunization status
CPT/HCPCS: 36415; 86481; 86704; 86706; 86709; 86735; 86762; 86765; 86787; 86803; 87340

== ENCOUNTER 2025-01-21 09:20 | Outpatient (AMB) | payer OTHER, SELFPAY ==
[2025-01-21 09:30] VITALS: BP 102/66; PULSE 84; TEMP 36.8; O2SAT 99; BMI 25.2
--- NOTE | 2025-01-21 09:30 | AM.OFFWIN_ITS ---
Intake Vital Signs 01/21/25 09:30 Height 5 ft 7 in Weight 161 lb BMI 25.2 BP 102/66 Blood Pressure Location Lt brachial Position Sitting Pulse 84 Pulse Source Pulse Oximeter Temp 98.3 F Temp Source Oral Pulse Oximetry (%) 99 Oxygen Delivery Method Room Air Intake Visit Reasons: EP pain on LT eye & nose Intake Note: presents with right nares pain with bleeding lesion for about 3 weeks and left eye irritation for a couple days Patient Tobacco Use Status: Never used Tobacco Allergies gentamicin Allergy (Unknown, Verified 01/21/25 09:33) Unknown Do you need a note to return to daycare/school/sports/work: No HPI HPI Comments History of Present Illness Details 44 y/o Female patient who presents to [facility] walk in clinic with c/o right sided Nostril pain with bleeding plus lesion for about 3 weeks associated with left eye irritation for two days. Pt has h/o Seasonal allergies and she has not been using her Allergy medications. [facility] Medical History (Updated 01/21/25 @ 09:52 by Fina Leung NP) Allergic conjunctivitis and rhinitis Hypersomnia Snoring Deviated nasal septum, congenital Depression Surgical History History of knee surgery History of tubal ligation History of section Family History Father Unknown family medical history Mother No problems noted. Maternal Grandmother HTN (hypertension) Diabetes mellitus Son No problems noted. Daughter No problems noted. 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 Cognitive needs: No Hearing needs: No Vision needs: No Review of Systems Const All systems reviewed & are unremarkable except as noted in HPI and below Physical Exam Vital Signs: Last Vital Signs Temp 98.3 F 01/21/25 09:30 Pulse 84 01/21/25 09:30 BP 102/66 01/21/25 09:30 Pulse Ox 99 01/21/25 09:30 Oxygen Delivery Method Room Air 01/21/25 09:30 BMI result Body Mass Index 25.2 Const General: comfortable and no acute distress Nutritional Appearance: obese Orientation/consciousness: patient oriented x3 HEENT Head: Yes normocephalic Ears: external ears normal and TM abnormal with fluid behind the TM bilateral General nose exam: Abnormal mucous membranes and turbinates present boggy and erythematous Face and sinus: Yes sinuses nontender Mouth: moist mucous membranes Throat: Yes uvula midline Eyes Eyelids: Yes eyelid abnormality (Swollen Upper eyelid) Conjunctivae: conjunctivae normal Pupils: Equal, round and reactive pupils present EOM: EOMs intact bilaterally Resp Effort & Inspection: normal respiratory effort and able to speak in complete sentences Auscultation: clear to auscultation bilaterally, no crackles, no rales, no rhonchi and no wheezes Cardio Heart sounds: S1 normal heart sound present and S2 normal heart sound present Neuro General: patient oriented x3 Cranial nerves: Yes Equal, round and reactive pupils present Assessment & Plan Assessment & Plan (1) Allergic conjunctivitis and rhinitis: Code(s): H10.10 - Acute atopic conjunctivitis, unspecified eye; J30.9 - Allergic rhinitis, unspecified Qualifiers: Laterality: left Qualified Code(s): H10.12 - Acute atopic conjunctivitis, left eye; J30.9 - Allergic rhinitis, unspecified Plan: Seasonal allergies; Ordered Zrytec BID and Afrin for 3 days only. Advised to continue taking Zrytec Daily until the end of season Advised to maintain good Hands and eye hygiene Ordered Abx eye drops Warm compress to the eye Medications: New ciprofloxacin HCl 0.3% Put 1-2 drops in the affected Eye every 2hr up to 8 times /day for 2days; Then 4 times/day for 5 days ophthalmic (eye). 5 mL 0RF H10.12 - Acute atopic conjunctivitis, left eye, J30.9 - Allergic rhinitis, unspecified cetirizine (Zyrtec) 10 mg PO DAILY 30 tabs 0RF H10.12 - Acute atopic conjunctivitis, left eye, J30.9 - Allergic rhinitis, unspecified oxymetazoline 0.05% (Afrin (oxymetazoline)) 2 sprays intranasal Q12H PRN 22 mL 0RF nasal congestion 3 days H10.12 - Acute atopic conjunctivitis, left eye, J30.9 - Allergic rhinitis, unspecified Coding Level of Care Code Est Pt Level 4 (20231) Diagnoses Allergic conjunctivitis of left eye and rhinitis H10.12; J30.9 Laterality: left Time Spent (min) 20
--- OUTSIDE RECORDS SUMMARY | 2025-01-21 09:46 | XMS_ITS | Patient Health Record ---
Author Organization [facility] Address [address] [place] [address] Care Team Providers Care Wheel Buffer Name Role Phone Molina Shah Primary Care Provider Unav ailable Black, Fabby Unavailable [phone] Allergies Allergen (clinical drug ingredient) Drug/Non Drug [...] Duration) Notes Start Date End Date Status SUMAtriptan Active Wellbutrin Active Vitamin D3 Active Ciclopirox Olamine 0.77 % 1 application Externally Twice a day to skin of feet including between the toes; Duration: 30 days Active Terbinafine HCl 250 MG 1 tablet Orally O nce a day for 7 days days then stop for 3 weeks repeat cycle; Duration: 90 days 07/31/2024 Active Night Splint AFO - L1930 1 wear at rest; Duration: 30 days Active Ammonium Lactate 12 % APPLY EXTERNALLY T O THE AFFECTED AREA TWICE DAILY TO DRY AREAS OF SKIN ON FEET; Duration: 30 Active Social History Tobacco Use: Social History [...] Problem Acquired hammer toe of right foot (916896683225476 5) Other hammer toe(s) (acquired), right foot (M20.41) Active confirmed Problem Plantar fasciitis of right foot (733882808255384 01) Plantar fasciitis of right foot (M72.2) Active confirmed Problem Interstitial myositis (13407019) Interstitial myositis of right foot (M60.171) Active confirmed Problem Arthritis of joint of lesser toe, right (M19.071) Active confirmed Vital Signs Blood pressure diastolic 68 mm Hg 12/11/2024 Height 5ft 7in in 12/11/2024 Blood pressure systolic 124 mm Hg 12/11/2024 Weight 162 lbs 12/11/2024 BMI 25.37 kg/m2 12/11/2024 Procedures Procedure Date Ordered Date Performed Result Body Sit e 27356-XCRQBPN NAIL, 6 OR MORE 09/09/2024 N/A Encounters Encounter Location Date Provider Diagnosis [address] [address] 07/28/2024 Fabby Black Pain in right toe(s) M79.674 ; Onychomycosis B35.1 ; Pain in left toe(s) M79.675 and Tinea pedis of both feet B35.[address] [address] 09/09/2024 Fabby Black Pain in right toe(s) M79.674 ; Onychomycosis B35.1 ; Pain in left toe(s) M79.675 and Xerosis of skin L85.[address] [address] 10/16/2024 Fabby Black Pain in right toe(s) M79.674 ; Other hammer toe(s) (acquired), right foot M20.41 ; Arthritis of joint of lesser toe, right M19.071 ; Subluxation of metatarsophalangeal joint of toe, initial encounter S93.149A ; Pain in right foot M79.671 ; Plantar fasciitis of right foot M72.2 ; Interstitial myositis of right foot M60.171 and Bursitis of right foot M77.[address] [facility] [address] 12/11/2024 Fabby Singh Other hammer toe(s) (acquired), right foot M20.41 ; Onychomycosis B35.1 ; Pain in right toe(s) M79.674 ; Arthritis of joint of lesser toe, right M19.071 ; Subluxation of metatarsophalangeal joint of toe, initial encounter S93.149A ; Pain in right foot M79.671 ; Plantar fasciitis of right foot M72.2 ; Interstitial myositis of right foot M60.171 ; Bursitis of right foot M77.51 and Pain in left toe(s) M79.[address] [facility] [address] 07/01/2024 [facility] [address] 07/28/[address] [address] 12/11/[address] [address] 12/14/2024 Fabbyberkley Singh Assessments Encounter Date Diagnosis (ICD [...] toe(s) (acquired), right foot (ICD-10 - M20.41) 12/11/2024 Other hammer toe(s) (acquired), right foot (ICD-10 - M20.41) 12/11/2024 Onychomycosis (ICD-1 0 - B35.1) 09/09/2024 Onychomycosis (ICD-1 0 - B35.1) r 10/16/2024 Arthritis of joint o f lesser toe, right (ICD-10 - M19.071) 12/11/2024 Pain in right toe(s) (ICD-10 - M79.674) 07/28/2024 Pain in left toe(s) (ICD-10 - M79.675) 09/09/2024 Pain in left toe(s) (ICD-10 - M79.675) r 07/28/2024 Tinea pedis of both feet (ICD-10 - B35.3) Patient Educated with: ATHELETE .pdf (ATHELETE .pdf) 09/09/2024 Xerosis of skin (ICD -10 - L85.3) r 10/16/2024 Subluxation of metatarsophalangeal joint of toe, initial encounter (ICD-10 - S93.149A) 12/11/2024 Arthritis of joint o f lesser toe, right (ICD-10 - M19.071) 12/11/2024 Subluxation of metatarsophalangeal joint of toe, initial encounter (ICD-10 - S93.149A) 10/16/2024 Pain in right foot (ICD-10 - M79.671) 12/11/2024 Pain in right foot (ICD-10 - M79.671) 10/16/2024 Plantar fasciitis of right foot (ICD-10 - M72.2) Patient Educated with: HEEL CORD STRETCHES.pdf (HEEL CORD STRETCHES.pdf ) Patient Educated with: RICE THERAPY.pdf (RICE THERAPY.pdf) 10/16/2024 Interstitial myositi s of right foot (ICD-10 - M60.171) 12/11/2024 Plantar fasciitis of right foot (ICD-10 - M72.2) 12/11/2024 Interstitial myositi s of right foot (ICD-10 - M60.171) 10/16/2024 Bursitis of right fo ot (ICD-10 - M77.51) 12/11/2024 Bursitis of right fo ot (ICD-10 - M77.51) 12/11/2024 Pain in left toe(s) (ICD-10 - M79.675) 09/09/2024 Other r Plan Of Treatment Pending Test Test Name Order Date *Liver Function Test (LFT) 07/28/2024 *Liver Function Test (LFT) 12/11/2024 [id number]-[id number] NAIL, 6 OR MORE 09/09/2024 Nail Panel 07/28/2024 Next Appt Details Provider Name:Fabby Carpenter Francisco , 03/30/2025 11:00:00 AM, [address] [facility], [place], [address], Insurance Providers Payer Name Payer Address Payer Phone Subscriber Number Group Number Insured Name Patient Relationship to Insured Coverage Start Date Coverage End Date [facility] Adv [address] [place] [id number] Inge Trammell Self - patient is the insured Medical (General) History Medical History History ICD Code Anxiety Back,Hip,and Knee pain covid-19 Depression Fibromyalgia Headaches/Migraines Reynauds syndrome Sciatica sinusitis Chicken pox Joint implants/screws Surgical History Surgery Date(Month/Year) knee surgery 11/2021 09/04/2004
== END 2025-01-21 10:10 | disposition home or self-care (01) ==
PROVIDERS: PCP Nurse Practitioner Family; Visit Provider Nurse Practitioner Family
DX: H10.12 Acute atopic conjunctivitis, left eye (principal); J30.9 Allergic rhinitis, unspecified

== ENCOUNTER → 2025-01-21 09:20 | Outpatient (BNVA) | payer OTHER, SELFPAY | PROVIDERS: PCP Nurse Practitioner Family; Visit Provider Nurse Practitioner Family | DX: H10.12 Acute atopic conjunctivitis, left eye (principal); J30.9 Allergic rhinitis, unspecified | CPT/HCPCS: 99212 ==

== ENCOUNTER 2025-04-13 10:48 | Outpatient (REF) | payer OTHER, SELFPAY ==
--- OUTSIDE RECORDS SUMMARY | 2025-04-13 12:05 | XMS_ITS | Patient Health Record ---
[facility] Organization [facility] Address [address] [place] [address] Care Team Providers Care Mid Level Clinician Name Role Phone Molina Shah Primary Care Provider Unav ailable Black, Fabby Unavailable [phone] Allergies Allergen (clinical drug ingredient) Drug/Non Drug [...] Start Date End Date Status SUMAtriptan Active Night Splint AFO - L1930 1 wear at rest; Duration: 30 days Active Terbinafine HCl 250 MG 1 tablet Orally O nce a day for 7 days days then stop for 3 weeks repeat cycle; Duration: 90 days 07/31/2024 Active Vitamin D3 Active Wellbutrin Active Ciclopirox Olamine 0.77 % APPLY EXTERNAL LY TWICE DAILY TO SKIN OF FEET INCLUDING BETWEEN THE TOES; Duration: 30 Active Ammonium Lactate 12 % APPLY EXTERNALLY T O THE AFFECTED AREA TWICE DAILY TO DRY AREAS OF SKIN ON FEET; Duration: 30 Active Immunizations Vaccine Route Administration Date Status Comme nts Influenza Unknown 03/15/2024 Administered Social History Tobacco Use: Social History Observation [...] Problem Acquired hammer toe of right foot (7777537753228326) Other hammer toe(s) (acquired), right foot (M20.41) Active confirmed Problem Plantar fasciitis of right foot (63932787333343257 ) Plantar fasciitis of right foot (M72.2) Active confirmed Problem Interstitial myositis (04738596) Interstitial myositis of right foot (M60.171) Active confirmed Problem Localized, primary osteoarthritis of the ankle and/or foot (555454565) Arthritis of joint of lesser toe, right (M19.071) Active confirmed Vital Signs Blood pressure diastolic 70 mm Hg 03/30/2025 Height 5ft7in in 03/30/2025 Blood pressure systolic 120 mm Hg 03/30/2025 Weight 160 lbs 03/30/2025 BMI 25.06 kg/m2 03/30/2025 Procedures Procedure Date Ordered Date Performed Result Body Sit e 24477-AUAAIGI NAIL, 6 OR MORE 09/09/2024 N/A Encounters Encounter Location Date Provider Diagnosis [address] [address] 07/28/2024 Fabby Black Pain in right toe(s) M79.674 ; Onychomycosis B35.1 ; Pain in left toe(s) M79.675 and Tinea pedis of both feet B35.[address] [address] 09/09/2024 Fabby Black Pain in right toe(s) M79.674 ; Onychomycosis B35.1 ; Pain in left toe(s) M79.675 and Xerosis of skin L85.[address] [address] 10/16/2024 Fabby Black Pain in right toe(s) M79.674 ; Other hammer toe(s) (acquired), right foot M20.41 ; Arthritis of joint of lesser toe, right M19.071 ; Subluxation of metatarsophalangeal joint of toe, initial encounter S93.149A ; Pain in right foot M79.671 ; Plantar fasciitis of right foot M72.2 ; Interstitial myositis of right foot M60.171 and Bursitis of right foot M77.[address] [address] 12/11/2024 Fabby Black Other hammer toe(s) (acquired), right foot M20.41 [...] M77.51 and Pain in left toe(s) M79.[address] [address] 03/30/2025 Fabby Black Other hammer toe(s) (acquired), right foot M20.41 [...] M77.51 and Pain in left toe(s) M79.[address] [address] 07/01/[address] [address] 07/28/[address] [address] 12/11/[address] [address] 12/14/2024 Fabby Singh [facility] [address] [place] [address] 03/01/2025 Fabbyberkley Singh [facility] [address] [place] [address] 03/31/2025 Fabby Singh [facility] Encounter Date Diagnosis (ICD Code) Assessment Notes [...] M20.41) 12/11/2024 Onychomycosis (ICD-1 0 - B35.1) 03/30/2025 Other hammer toe(s) (acquired), right foot (ICD-10 - M20.41) 03/30/2025 Onychomycosis (ICD-1 0 - B35.1) 03/30/2025 Pain in right toe(s) (ICD-10 - M79.674) 09/09/2024 Onychomycosis (ICD-1 0 - B35.1) r [...] f lesser toe, right (ICD-10 - M19.071) 03/30/2025 Arthritis of joint o f lesser toe, right (ICD-10 - M19.071) 03/30/2025 Subluxation of metatarsophalangeal joint of toe, initial encounter (ICD-10 - S93.149A) 12/11/2024 Subluxation of metatarsophalangeal joint of toe, initial encounter (ICD-10 - S93.149A) 10/16/2024 Pain in right foot (ICD-10 - M79.671) 12/11/2024 Pain in right foot (ICD-10 - M79.671) 10/16/2024 Plantar fasciitis of right foot (ICD-10 - M72.2) Patient Educated with: HEEL CORD STRETCHES.pdf (HEEL CORD STRETCHES.pdf ) Patient Educated with: RICE THERAPY.pdf (RICE THERAPY.pdf) 03/30/2025 Pain in right foot (ICD-10 - M79.671) 03/30/2025 Plantar fasciitis of right foot (ICD-10 - M72.2) 12/11/2024 Plantar fasciitis of right foot (ICD-10 - M72.2) 10/16/2024 Interstitial myositi s of right foot (ICD-10 - M60.171) 10/16/2024 Bursitis of right fo ot (ICD-10 - M77.51) 12/11/2024 Interstitial myositi s of right foot (ICD-10 - M60.171) 03/30/2025 Interstitial myositi s of right foot (ICD-10 - M60.171) 03/30/2025 Bursitis of right fo ot (ICD-10 - M77.51) 12/11/2024 Bursitis of right fo ot (ICD-10 - M77.51) 03/30/2025 Pain in left toe(s) (ICD-10 - M79.675) 12/11/2024 Pain in left toe(s) (ICD-10 - M79.675) 09/09/2024 Other r Plan Of Treatment Pending Test Test Name Order Date *Liver Function Test (LFT) 07/28/2024 *Liver Function Test (LFT) 12/11/2024 *Liver Function Test (LFT) 03/30/2025 10435-WIFNAED NAIL, 6 OR MORE 09/09/2024 Nail Panel 07/28/2024 Next Appt Details Provider Name:Allyn george, 05/31/2025 02:30:00 PM, [address], [place], [address], Provider Name:Fabby Singh , 08/24/2025 11:00:00 AM, [address], [place], [address], Insurance Providers Payer Name Payer Address Payer Phone Subscriber Number Group Number Insured Name Patient Relationship to Insured Coverage Start Date Coverage End Date [facility] Adv [address] [place] [id number] Inge Trammell Self - patient is the insured Medical (General) History Medical History History ICD Code Anxiety Back,Hip,and Knee pain covid-19 Depression Fibromyalgia Headaches/Migraines Reynauds syndrome Sciatica sinusitis Chicken pox Joint implants/screws Surgical History Surgery Date(Month/Year) knee surgery 11/2021 09/04/2004
[2025-04-14 20:28] LABS: Immunoglobulin A 181 mg/dL (47-310)
== END 2025-04-13 10:49 | disposition home or self-care (01) ==
LOC: HO.HMGCLDS 10:48
PROVIDERS: PCP Nurse Practitioner Family; Visit Provider Nurse Practitioner Family
DX: R19.7 Diarrhea, unspecified (principal)
CPT/HCPCS: 36415; 82784; 86364

== ENCOUNTER 2025-04-14 11:17 | Outpatient (AMB) | payer OTHER, SELFPAY ==
--- NOTE | 2025-04-14 11:19 | A.OFFPC_ITS ---
Vital Signs 04/14/25 11:20 Height 5 ft 7 in Weight 165 lb BMI 25.8 BP 110/68 Blood Pressure Location Lt brachial Position Sitting Pulse 84 Pulse Source Pulse Oximeter Pulse Oximetry (%) 100 Intake Visit Reasons: Stomach cramps, nausea, gas after eating food Allergies gentamicin Allergy (Unknown, Verified 04/14/25 11:20) Unknown Medication List - Last Reconciled 04/14/25 by Shirley Richard MD acetaminophen (Tylenol Extra Strength) 1,000 mg (2 x 500 mg) PO Q8H PRN 30 days cetirizine (Zyrtec) 10 mg PO DAILY cholecalciferol (vitamin D3) 50 mcg PO DAILY 90 days ciprofloxacin HCl 0.3% Put 1-2 drops in the affected Eye every 2hr up to 8 times/day for 2days; Then 4 times/day for 5 days ophthalmic (eye). fluticasone propionate 50 mcg/actuation (Allergy Relief (fluticasone)) 2 sprays intranasal DAILY 30 days ibuprofen (IBU) 800 mg PO BID PRN 30 days oxymetazoline 0.05% (Afrin (oxymetazoline)) 2 sprays intranasal Q12H PRN 3 days terbinafine HCl mg PO Wellbutrin XL (bupropion HCl) 300 mg PO DAILY NS Tobacco use date assessed: 10/01/24 Dental Screening Dental Screen Date: 10/01/24 HPI Stomach cramps, nausea, gas after eating food HPI Details History of Present Illness The patient is a 44-year-old female presenting with gastrointestinal distress symptoms. Gastrointestinal Distress: - Symptoms have been present for a few y ears with increasing frequency lately. - Nausea and stomach cramping occur, pre dominantly after eating specific foods such as [place], cream of wheat, bread, and occasionally certain meats. - Symptoms are alleviated after a bowel movement, although the patient feels exhausted post-movement. - Symptoms include nausea, a tight stoma ch, and sometimes an urgent need to defecate. - No diarrhea or blood in the stools rep orted; stool form regular. - Dairy specifically (milk or non-dairy creamer) does not always trigger symptoms. - Symptoms not consistently present but often triggered by particular food items. Medical History: - History of taking Wellbutrin (an unspe cified dose). Medications: - Vitamin D: for supplementation. - Allergy Medication: unspecified for al yudi. - Wellbutrin: For psychiatric use (speci fic dose not mentioned). - Ibuprofen: Used occasionally for pain relief. Problem List - Gastrointestinal Distress Plan - Encourage dietary modification, avoidi ng foods that trigger symptoms such as [place], cream of wheat, and certain meats. - Start omeprazole daily for six weeks t o address potential stomach inflammation, considering the presence of nausea. - Consider trial of medications for symp escobar relief if lifestyle changes do not sufficiently address symptoms. Patient Instructions - Avoid foods that make you feel sick, l malachi certain grains and meats. - Start taking omeprazole every day for six weeks, either in the morning or night. - Continue keeping track of foods that t rigger third your symptoms. if symptoms not improved work for celiac disease needed f/u PCP Review of Systems. 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 Maternal Grandmother HTN (hypertension) Diabetes mellitus Son No problems noted. Daughter No problems noted. 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 1. Little interest or pleasure in doing things: not at all 2. Feeling down, depressed, or hopeless: not at all 3. Trouble falling or staying asleep, or sleeping too much: not at all 4. Feeling tired or having little energy: several days 5. Poor appetite or overeating: not at all 6. Feeling bad about yourself - or that you are a failure or have let yourself or your family down: not at all 7. Trouble concentrating on things, such as reading the newspaper or watching television: not at all 8. Moving or speaking so slowly that other people could have noticed. Or the opposite - being so fidgety or restless that you have been moving around a lot more than usual: not at all 9. Thoughts that you would be better off or of hurting yourself in some way: not at all Total score: 1 Depression Screening Interpretation: Negative Depression Screening Done: Yes 51884 - PHQ-9 Billing: Yes Source: Developed by Drs. Stef Cadena, Aaliyah Poe, Scott Santoyo and colleagues, with an educational hermes from [employer]. Thrive Questionnaire Date Thrive assessed: 09/24/24 I am a: Patient What is your living situation today?: I have a steady place to live Within the past 12 months, did the food you bought not last and you didn't have the money to get more?: Never true Within the past 12 months, did you worry whether your food would run out before you got money to buy more?: Never true Do you have trouble paying for medicines?: No Do you have trouble getting transportation to medical appointments?: No Do you have trouble paying your heating and electricity bill?: No Do you have trouble taking care of your child, family member or friend?: No Do you have trouble with day-to-day activities such as bathing, preparing meals, shopping, managing finances, etc.?: No Are you currently unemployed and looking for a job?: No Are you interested in more education?: No Please select the resources that you would like help with: None Currently or been in a relationship where the following occur: No concerns reported THRIVE Score: 0 AUDIT C Alcohol Use Questionnaire (AUDIT-C) 1. How often do you have a drink containing alcohol?: Never 3. How often do you have six or more drinks on one occasion?: Never Total Score: 0 MAYDA-7 AMB Questionnaire MAYDA-7 Date MAYDA - 7 assessed: 10/01/24 Feeling nervous, anxious, or on edge: 0 = Not at all Not being able to stop or control worryin = Not at all Worrying too much about different things: 0 = Not at all Trouble relaxin = Not at all Being so restless that it is hard to sit still: 0 = Not at all Becoming easily annoyed or irritable: 0 = Not at all Feeling afraid as if something awful might happen: 0 = Not at all Total MAYDA-7 score (0-4 normal; 5-9 mild; 10-14 moderate; 15-21 severe): 0 Source: Developed by Drs. Stef Cadena, Aaliyah Poe, Scott Santoyo and colleagues, with an educational hermes from [employer]. MAYDA-7 Assessment Billing MAYDA-7 Assessment Tool: MAYDA-7 Assessment 61405 Physical exam (Primary Care) Vital Signs: Last Vital Signs Pulse 84 04/14/25 11:20 BP 110/68 04/14/25 11:20 Pulse Ox 100 04/14/25 11:20 BMI result Body Mass Index 25.8 Tobacco/Smoking Status: Tobacco use Status Tobacco use date assessed 10/01/24 04/14/25 11:21 Patient Tobacco Use Status Never used Tobacco 04/14/25 11:21 e-Cigarette/Vaping Use Never Used 04/14/25 11:21 PHQ-9: PHQ-9 Score PHQ-9: Total score 1 04/14/25 11:21 Depression Screening Interpretation: Negative Thrive Assessment: Date of Thrive Assessment Date Thrive assessed 09/24/24 04/14/25 11:21 Currently or been in a relationship where the following occur: No concerns reported Coding Level of Care Code Est Pt Level 3 (02008) Diagnoses Abdominal cramping R10.9 Bloating R14.0 Additional Codes PHQ-9 - 16406 - PHQ-9 Billing: Yes ([id number]) MAYDA-7 Assessment Billing - MAYDA-7 Assessment Tool: MAYDA-7 Assessment 83754 ([id number]) Assessment & Plan Assessment & Plan (1) Abdominal cramping: Code(s): R10.9 - Unspecified abdominal pain Category: Medical (2) Bloating: Code(s): R14.0 - Abdominal distension (gaseous) Category: Medical Plan History of Present Illness The patient is a 44-year-old female presenting with gastrointestinal distress symptoms. Gastrointestinal Distress: - Symptoms have been present for a few years with increasing frequency lately. - Nausea and stomach cramping occur, predominantly after eating specific foods such as [place], cream of wheat, bread, and occasionally certain meats. - Symptoms are alleviated after a bowel movement, although the patient feels exhausted post-movement. - Symptoms include nausea, a tight stomach, and sometimes an urgent need to defecate. - No diarrhea or blood in the stools reported; stool form regular. - Dairy specifically (milk or non-dairy creamer) does not always trigger symptoms. - Symptoms not consistently present but often triggered by particular food items. Medical History: - History of taking Wellbutrin (an unspecified dose). Medications: - Vitamin D: for supplementation. - Allergy Medication: unspecified for allergies. - Wellbutrin: For psychiatric use (specific dose not mentioned). - Ibuprofen: Used occasionally for pain relief. Problem List - Gastrointestinal Distress Plan - Encourage dietary modification, avoiding foods that trigger symptoms such as [place], cream of wheat, and certain meats. - Start omeprazole daily for six weeks to address potential stomach inflammation, considering the presence of nausea. - Consider trial of medications for symptom relief if lifestyle changes do not sufficiently address symptoms. Patient Instructions - Avoid foods that make you feel sick, like certain grains and meats. - Start taking omeprazole every day for six weeks, either in the morning or night. - Continue keeping track of foods that trigger your symptoms. if symptoms not improved work for celiac disease needed f/u PCP Medications: New omeprazole 20 mg PO DAILY 60 caps 0RF Discontinued ibuprofen (IBU) Discontinued Reason: Doctor's Order 800 mg PO BID 30 days PRN 60 tabs 0RF pain
[2025-04-14 11:20] VITALS: BP 110/68; PULSE 84; O2SAT 100; BMI 25.8
--- OUTSIDE RECORDS SUMMARY | 2025-04-14 12:55 | XMS_ITS | Patient Health Record ---
Author Organization [facility] Address [address] [place] [address] Care Team Providers Care [employer] Name Role Phone Molina Shah Primary Care Provider Unav ailable Black, Fabby Unavailable [phone] Allergies Allergen (clinical drug ingredient) Drug/Non Drug [...] Problem Acquired hammer toe of right foot (8095531181951999) Other hammer toe(s) (acquired), right foot (M20.41) Active confirmed Problem Plantar fasciitis of right foot (09814231007446641 ) Plantar fasciitis of right foot (M72.2) Active confirmed Problem Interstitial myositis (42056035) Interstitial myositis of right foot (M60.171) Active confirmed Problem Localized, primary osteoarthritis of the ankle and/or foot (578084518) Arthritis of joint of lesser toe, right (M19.071) Active confirmed Vital Signs Blood pressure diastolic 70 mm Hg 03/30/2025 Height 5ft7in in 03/30/2025 Blood pressure systolic 120 mm Hg 03/30/2025 Weight 160 lbs 03/30/2025 BMI 25.06 kg/m2 03/30/2025 Procedures Procedure Date Ordered Date Performed Result Body Sit e 93090-LTJUCBT NAIL, 6 OR MORE 09/09/2024 N/A Encounters Encounter Location Date Provider Diagnosis [address] [address] 07/28/2024 Fabby Black Pain in right toe(s) M79.674 ; Onychomycosis B35.1 ; Pain in left toe(s) M79.675 and Tinea pedis of both feet B35.[address] [address] 09/09/2024 Fabby Black Pain in right toe(s) M79.674 ; Onychomycosis B35.1 ; Pain in left toe(s) M79.675 and Xerosis of skin L85.[address] [address] 10/16/2024 Fabby Black Pain in right toe(s) M79.674 ; Other hammer toe(s) (acquired), right foot M20.41 ; Arthritis of joint of lesser toe, right M19.071 ; Subluxation of metatarsophalangeal joint of toe, initial encounter S93.149A ; Pain in right foot M79.671 ; Plantar fasciitis of right foot M72.2 ; Interstitial myositis of right foot M60.171 and Bursitis of right foot M77.[address] [address] 12/11/2024 Fabby Black Other hammer toe(s) (acquired), [...] M77.51 and Pain in left toe(s) M79.[address] [address] 03/30/2025 Fabby Black Other hammer toe(s) (acquired), [...] M77.51 and Pain in left toe(s) M79.[address] [address] 07/01/[address] [address] 07/28/[address] [address] 12/11/[address] [address] 12/14/2024 Fabby Singh [facility] [address] [place] [address] 03/01/2025 Fabbyberkley Singh [facility] [address] [place] [address] 03/31/2025 Fabby Singh [facility] Encounter Date Diagnosis (ICD Code) Assessment Notes [...] (LFT) 12/11/2024 *Liver Function Test (LFT) 03/30/2025 00889-RESLXRT NAIL, 6 OR MORE 09/09/2024 Nail Panel 07/28/2024 Next Appt Details Provider Name:Allyn george, 05/31/2025 02:30:00 PM, [address], [place], [address], Provider Name:Fabby Singh , 08/24/2025 11:00:00 AM, [address], [place], [address], Insurance Providers Payer Name Payer Address Payer Phone Subscriber Number Group Number Insured Name Patient Relationship to Insured Coverage Start Date Coverage End Date [facility] Adv [address] [place] [id number] Inge Trammell Self - patient is the insured Medical (General) History Medical History History ICD Code Anxiety Back,Hip,and Knee pain covid-19 Depression Fibromyalgia Headaches/Migraines Reynauds syndrome Sciatica sinusitis Chicken pox Joint implants/screws Surgical History Surgery Date(Month/Year) knee surgery 11/2021 09/04/2004
== END 2025-04-14 11:43 | disposition home or self-care (01) ==
LOC: HO.HMCC 11:18
PROVIDERS: PCP Nurse Practitioner Family; Visit Provider Internal Medicine
DX: R10.9 Unspecified abdominal pain (principal); R14.0 Abdominal distension (gaseous)

== ENCOUNTER → 2025-04-14 11:17 | Outpatient (BNVA) | payer OTHER, SELFPAY | PROVIDERS: PCP Nurse Practitioner Family; Visit Provider Internal Medicine | DX: R14.0 Abdominal distension (gaseous) (principal); R10.9 Unspecified abdominal pain | CPT/HCPCS: 96127; 99212 ==

== ENCOUNTER 2025-06-23 10:32 | Outpatient (AMB) | payer OTHER, SELFPAY ==
--- NOTE | 2025-06-23 10:35 | MHC.OFFVIS ---
Vital Signs 06/23/25 10:44 Height 5 ft 7 in Weight 167 lb 8.821 oz BMI 26.2 BP 119/62 Blood Pressure Location Rt brachial Position Sitting Pulse 84 Intake Visit Reasons: colo screen Intake Note: New patient in office today for colonoscopy screening. CC: Patient reports constipation sometimes but she takes Senna and it takes care of it. Denies other GI symptoms today. 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 She is referred by Shirley Richard. PMX Allergic rhinitis Chronic sinusitis Deviated nasal septum Fibromyalgia syndrome Raynaud's phenomenon Right bundle-branch block/tachycardia Depression * SURGICAL HISTORY Left knee surgery partial knee replacement Tubal ligation section Septoplasty * ALLERGIES Gentamicin * [facility]: Laboratory Tests 10/16/24 07:35 WBC 8.0 Hgb 12.8 Hct 40.1 Plt Count 373 Estimated GFR > 60 Total Bilirubin 0.2 AST 25 ALT 16 Alkaline Phosphatase 81 TSH 0.95 TODAY'S VISIT Prior colonoscopy: Had prior scope with Dr. Casanova with only a skin tag removed, record is lost to computer conversion. Bowel or upper GI problems: No Cardiac or respiratory problems: RBBB well controlled no severe respiratory problems GRACIE testing negative. Anesthesia or sedation problems: She has severe nausea with general anesthesia, usually needs meclizine patch, no other. Infectious disease problems: No Family history of colon cancer or polyps: Only great maternal uncle CRC. [facility] Medical History (Updated 06/23/25 @ 11:30 by IVONNE Sow) Fungal infection of foot Snoring Bad odor of urine Screening for colon cancer Urinary tract infection Viral illness Immunizations incomplete Allergic conjunctivitis and rhinitis Hypersomnia Deviated nasal septum, congenital Depression Surgical History (Updated 06/23/25 @ 11:30 by IVONNE Sow) History of partial knee replacement H/O nasal septoplasty History of knee surgery History of tubal ligation History of section Family History Father Unknown family medical history Mother No problems noted. Maternal Grandmother HTN (hypertension) Diabetes mellitus Son No problems noted. Daughter No problems noted. 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 Cognitive needs: No Hearing needs: No Vision needs: No Review of Systems ENT Reports Normal hearing present Neuro Reports Normal hearing present and Denies Abnormal speech present Physical Exam Const General: cooperative, no acute distress, well developed and well groomed Nutritional Appearance: well nourished Orientation/consciousness: oriented to person, oriented to place and oriented to time Limitations: No language barrier HEENT Head: Yes normocephalic and Yes atraumatic Eyes General: appearance normal, both eyes and all related structures Pupils: Equal, round and reactive pupils present Neck Neck: Yes normal visual inspection and Yes no lymphadenopathy Thyroid: Thyroid normal Resp Effort & Inspection: normal respiratory effort and able to speak in complete sentences Auscultation: clear to auscultation bilaterally Cardio Rate: regular rate Rhythm: regular rhythm Heart sounds: Normal, physiologic split S2 sound present Peripheral pulses: radial pulses present and posterior tibial pulses present GI Inspection: No distended and No Abdominal panniculus present Palpation (GI): Soft to palpation, nontender, no guarding, not rigid and No hepatosplenomegaly present Percussion: Yes normal to percussion Auscultation: normal bowel sounds Rectal Exam - Female: deferred Abdomen image:  1. surgical scar Skin General skin exam: no rashes or lesions noted, turgor normal, skin not dry, no jaundice, No spider nevi and no striae Rashes: no rashes Nails: normal Neuro General: oriented to person, oriented to place and oriented to time Cranial nerves: Yes Equal, round and reactive pupils present and Yes Normal hearing present Speech: No Abnormal speech present Extrem General: Yes normal to inspection, No clubbing, No cyanosis and No edema Psych Thought process: Normal thought process present and not confabulating Thought content: Normal thought content present Insight: Good insight present (Psych) Judgement: Good judgement present (Psych) Assessment & Plan Assessment & Plan (1) Pre-op examination: Code(s): Z01.818 - Encounter for other preprocedural examination Category: Medical (2) PONV (postoperative nausea and vomiting): Comment: Needs meclizine patch for general anesthesia Code(s): R11.2 - Nausea with vomiting, unspecified; Z98.890 - Other specified postprocedural states Category: Medical Plan Prior colonoscopy: Had prior scope with Dr. Casanova with only a skin tag removed, record is lost to computer conversion. Bowel or upper GI problems: No Cardiac or respiratory problems: RBBB well controlled no severe respiratory problems GRACIE testing negative. Anesthesia or sedation problems: She has severe nausea with general anesthesia, usually needs meclizine patch, no other. Infectious disease problems: No Family history of colon cancer or polyps: Only great maternal uncle CRC. Orders: Referrals GI Procedure Notification G47.30 - Sleep apnea, unspecified, Z01.818 - Encounter for other preprocedural examination Medications: New peg 3350-electrolytes 236-22.74-6.74 -5.86 gram (Golytely) until fecal effluent is clear; do not exceed a total volume of 2,000 mL 240 mL PO Q10M 4,000 mL 0RF 1 day Z12.11 - Encounter for screening for malignant neoplasm of colon bisacodyl (Dulcolax (bisacodyl)) 10 mg (2 x 5 mg) PO BEDTIME 4 tabs 0RF 2 days Coding Level of Care Code New Pt Level 3 (47558) Diagnoses Pre-op examination Z01.81 PONV (postoperative nausea and vomiting) R11.2; Z98.890
[2025-06-23 10:44] VITALS: BP 119/62; PULSE 84; BMI 26.2
== END 2025-06-23 11:28 | disposition home or self-care (01) ==
LOC: HO.HGI 10:33
PROVIDERS: PCP Nurse Practitioner Family; Visit Provider Nurse Practitioner
DX: Z01.818 Encounter for other preprocedural examination (principal); Z12.11 Encounter for screening for malignant neoplasm of colon; R11.2 Nausea with vomiting, unspecified
CPT/HCPCS: 99024

== ENCOUNTER → 2025-06-23 10:32 | Outpatient (BNVA) | payer OTHER, SELFPAY | PROVIDERS: PCP Nurse Practitioner Family; Visit Provider Nurse Practitioner | DX: Z01.818 Encounter for other preprocedural examination (principal); Z12.11 Encounter for screening for malignant neoplasm of colon; G47.30 Sleep apnea, unspecified; R11.2 Nausea with vomiting, unspecified | CPT/HCPCS: 99212 ==

== ENCOUNTER 2025-06-24 09:57 | Outpatient (AMB) | payer OTHER, SELFPAY ==
[2025-06-24 10:09] VITALS: BP 108/70; PULSE 75; TEMP 36.5; O2SAT 99; BMI 26.5
--- NOTE | 2025-06-24 10:09 | AM.OFFWIN_ITS ---
Intake Vital Signs 06/24/25 10:09 Height 5 ft 7 in Weight 169 lb BMI 26.5 BP 108/70 Blood Pressure Location Rt brachial Position Sitting Pulse 75 Pulse Source Pulse Oximeter Temp 97.7 F Temp Source Oral Pulse Oximetry (%) 99 Oxygen Delivery Method Room Air Intake Visit Reasons: EP low stomach pain on right side Intake Note: Patient presents abdominal pain on right side, mild discomfort when urinating x4 days. Patient Tobacco Use Status: Never used Tobacco Allergies gentamicin Allergy (Unknown, Verified 06/24/25 10:16) Unknown HPI HPI Comments History of Present Illness Details 45 y/o Female Patient who presents to [facility] with c/o right-sided lower abdominal pain and dysuria x 4 days. Pain described as aching, intermittent, localized to RLQ without radiation. Dysuria noted as burning at end of stream. Reports urinary urgency and frequency. Denies vaginal discharge, odor, pruritus, bleeding, or Dyspareunia. Denies constipation, diarrhea, hematochezia, melena. Denies fevers, chills, nausea, vomiting, flank pain, or hematuria. Sexually active with only; no concerns for STIs. No recent antibiotic use. No history of kidney stones. No prior similar episodes reported. [facility] Medical History (Updated 06/23/25 @ 11:30 by IVONNE Sow) Fungal infection of foot Snoring Bad odor of urine Screening for colon cancer Urinary tract infection Viral illness Immunizations incomplete Allergic conjunctivitis and rhinitis Hypersomnia Deviated nasal septum, congenital Depression Surgical History (Updated 06/23/25 @ 11:30 by IVONNE Sow) History of partial knee replacement H/O nasal septoplasty History of knee surgery History of tubal ligation History of section Family History Father Unknown family medical history Mother No problems noted. Maternal Grandmother HTN (hypertension) Diabetes mellitus Son No problems noted. Daughter No problems noted. 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 Cognitive needs: No Hearing needs: No Vision needs: No Review of Systems Const All systems reviewed & are unremarkable except as noted in HPI and below Physical Exam Vital Signs: Last Vital Signs Temp 97.7 F 06/24/25 10:09 Pulse 75 06/24/25 10:09 BP 108/70 06/24/25 10:09 Pulse Ox 99 06/24/25 10:09 Oxygen Delivery Method Room Air 06/24/25 10:09 BMI result Body Mass Index 26.5 Const General: no acute distress Nutritional Appearance: well nourished Orientation/consciousness: patient oriented x3 Resp Effort & Inspection: normal respiratory effort Cardio Rate: regular rate Other: Declines Pelvic Exam General: Yes no CVA tenderness Back/Spine/Pelvis Back: no CVA tenderness Neuro General: patient oriented x3, gait normal and moves all extremities Psych Speech and movement: Normal speech and movement present Results AMB Urinalysis, Automated UA Leukoctes 0 Warren/uL Last Edit by Katherine Redd CMA on 06/24/25 10:22 UA Nitrite Negative Last Edit by Katherine Redd CMA on 06/24/25 10:22 UA Urobilinogen 0.2 mg/dL Last Edit by Katherine Redd CMA on 06/24/25 10: 22 UA Protein 0 mg/dL Last Edit by Katherine Redd CMA on 06/24/25 10:22 UA pH 6.0 Last Edit by Katherine Redd CMA on 06/24/25 10:22 UA Blood 0 Drake/uL Last Edit by Katherine Redd CMA on 06/24/25 10:22 UA Specific [place] 1.005 Last Edit by Katherine Redd CMA on 06/24/25 10 :22 UA Ketone Negative Last Edit by Katherine Redd CMA on 06/24/25 10:22 UA Bilirubin 0 mg/dL Last Edit by Katherine Redd CMA on 06/24/25 10:22 UA Glucose 0 mg/dL Last Edit by Katherine Redd CMA on 06/24/25 10:22 Results Reviewed Results Reviewed: Laboratory Last Values Urine pH (Auto) 6.0 06/24/25 10:21 Specific [place] (Auto) 1.005 06/24/25 10:21 Urine Protein (Auto) 0 mg/dL 06/24/25 10:21 Glucose (UA)(Auto) 0 mg/dL 06/24/25 10:21 Urine Ketones (Auto) Negative 06/24/25 10:21 Urine Blood (Auto) 0 Drake/uL 06/24/25 10:21 Urine Nitrite (Auto) Negative 06/24/25 10:21 Urine Bilirubin (Auto) 0 mg/dL 06/24/25 10:21 Urine Urobilinogen (Auto) 0.2 mg/dL 06/24/25 10:21 Leukocyte Esterase (Auto) 0 Warren/uL 06/24/25 10:21 Assessment & Plan Assessment & Plan (1) Right sided abdominal pain: Code(s): R10.9 - Unspecified abdominal pain Plan: Urinalysis Normal. Pt declined Pelvic Examination or Swabs. Phenazopyridine (Azo) for 1?2 days PRN dysuria (counseled that it may discolor urine). Encourage increased hydration. WIll send Urine for Culture and Sensitivity. Red flags reviewed: Return sooner or go to ED for fever, chills, worsening abdominal pain, vomiting, flank pain, or if symptoms do not improve within 48?72 hours. Orders: Orders AMB Urinalysis Automated Today Z13.9 - Encounter for screening, unspecified Urine Culture Today N30.90 - Cystitis, unspecified without hematuria Coding Level of Care Code Est Pt Level 4 (68034) Diagnoses Right sided abdominal pain R10.9 Time Spent (min) 20
== END 2025-06-24 10:38 | disposition home or self-care (01) ==
PROVIDERS: PCP Nurse Practitioner Family; Visit Provider Nurse Practitioner Family
DX: Z13.9 Encounter for screening, unspecified (principal); R10.9 Unspecified abdominal pain

== ENCOUNTER 2025-06-24 09:57 | Outpatient (REF) | payer OTHER, SELFPAY | END 2025-06-24 09:58 | disposition home or self-care (01) | LOC: HO.LAB 09:57 | PROVIDERS: PCP Nurse Practitioner Family; Visit Provider Nurse Practitioner Family | DX: N30.90 Cystitis, unspecified without hematuria (principal); R10.31 Right lower quadrant pain | CPT/HCPCS: 81003; 87086; 99212 ==